=== PATIENT | female | born 1935 | race Caucasian/White ===

== ENCOUNTER 2019-08-27 13:23 | Outpatient (CLI) | payer MEDICARE, MEDICAID, SELFPAY ==
--- NOTE | 2019-08-27 13:32 | MM_ITS ---
WS: [id number] DIAGNOSTIC BILATERAL DIGITAL MAMMOGRAM WITH CAD HISTORY: HX OF BREAST CA COMPARISON: 08/24/2018, 08/23/2017 and 02/22/2017 TECHNIQUE: Bilateral craniocaudad, mediolateral oblique, and mediolateral views are submitted. Comput er aided detection utilized. Breast composition: The breasts are heterogeneously dense, which may obscure small masses. Volume los s and postsurgical changes with scarring in the LEFT breast. Nipple retraction is similar to prior st udies. Dense calcifications in the RIGHT breast. No new mass or suspicious calcifications. MM/[place] [id number] IMPRESSION: BI-RADS: 2-Benign FOLLOW UP: 1 Year Follow-up
--- NOTE | 2019-08-31 06:39 | ONC FU_ITS ---
Dr. Asif Patient Follow-Up Note Patient: Miriam Krishnan Unit #: [id number]: 1935 Dicatated By: Sarath Asif M.D.Date of Visit:Aug 27, 2019 Onc Med Follow-up/Prog Note Chief Complaint: Breast cancer. History of Present Illness: This is an 83 year-old woman with invasive lobular carcinoma of the left breast, stage IIA (T2, N0, M0), ER/TX positive and HER-2/yasir negative. She had been followed for some architectural distortion in the superior left breast which was thought to most likely be benign. However, a six-month follow-up ultrasound the left breast in October 2015 showed a hypoechoic focus in the 9:00 position of the left breast and a similar focus in the 10:00 position which were felt to be more suspicious, and biopsy was recommended. She then underwent ultrasound-guided needle biopsy on 11/28/2015. Pathology showed dense fibrous parenchyma with scattered foci of LCIS admixed with small foci of invasive lobular carcinoma. The best prognosis profile showed the tumor to be ER positive at 94% and TX positive at 9%. The Ki-67 was intermediate at 15%. It was negative for overexpression of HER-2/yasir, 2+ by IHC with amplification ratio by FISH of 1.2 with 1.9 HER-2 copies per cell. On 12/11/2015 she underwent left breast lumpectomy. Pathology showed a tumor comprised of both lobular carcinoma in situ and invasive lobular carcinoma. The invasive component measured 2.4 cm in greatest dimension. There was invasive carcinoma noted extending to the anterior, inferior, and medial margins. On 01/01/2016 she underwent reexcision lumpectomy with sentinel left axillary lymph node biopsy. There was no residual tumor identified in the reexcision specimen. There was no involvement noted in 3 axillary sentinel lymph nodes. I had seen her initially on 01/23/2016. In reviewing her medications, it was noted that she had been taking raloxifene. It took her some time to remember why, but eventually she did recall having participated in the STAR trial. To my recollection this was a comparison of raloxifene and tamoxifen for breast cancer prevention. When the study concluded, she learned that she had been on the tamoxifen arm, but she then developed some symptoms when she stopped taking it, and at that point Dr. Naidu had put her on raloxifene. I did have her stop taking it. She had further evaluation with Oncotype DX. It showed a recurrence of 20 corresponding to a 13% risk of distant recurrence at 10 years with hormonal therapy alone. She declined chemotherapy. She was given radiation to the left breast, which she completed on 04/05/2016 to a total dose of 6,000 cGy. Adjuvant hormonal therapy with anastrozole 1 mg daily began in May 2016. Her baseline bone density on 05/24/2016 was normal. Her other medical illnesses include hypertension, degenerative arthritis, glaucoma, and macular degeneration. She had smoked in the past, but only for about 5 years. She quit at age 35. INTERIM HISTORY: During her subsequent follow-up she had tolerated the anastrozole without significant adverse effects. Her repeat DEXA scan on 05/25/2018 showed normal bone mineralization with T score 2.4 in the lumbar spine, -0.2 in the left femoral neck, and -0.2 in the right femoral neck. She is seen for a scheduled visit. She has been feeling good generally. Her main complaint is that her teeth have been breaking off, and she is wondering if the medication may be contributing to that. She has good energy. She says she keeps busy. Her ECOG score is 0. Her appetite is good. She has no fever, night sweats, or hot flashes. She has had some hayfever symptoms with associated cough. She has no shortness of breath or chest pain. She has no GI/ complaints other than she has occasional episodes in which she her bowels move where she voids without being aware of it. She has arthritis in her right knee, which has gotten a little worse. She has no other joint or bone pain. She does not complain of headache. She occasionally takes meclizine for dizziness. She has some numbness in her left foot. She has no other focal neurologic symptoms. Medications: Alphagan P 1 drop(s) Solution Ophthalmic b.i.d., Anastrozole 1 (1 mg) Tablet Oral daily, Fluorouracil 1 (5 %) Cream Topical b.i.d., FLUoxetine HCl 1 Capsule (of 10 mg) Oral daily, Latanoprost 1 drop(s) Solution Ophthalmic daily, Lisinopril-Hydrochlorothiazide 1.5 Tablet (of 20-12.5 mg) Oral daily, Meloxicam 1 Tablet (of 15 mg) Oral daily, Metoprolol Succinate ER 1 Tablet (of 200 mg) Tablet SR 24 HR Oral daily, Potassium Chloride Leisa ER 2 Tablet (of 20 meq) Tablet, controlled release Oral daily, PreserVision AREDS 2 1 Capsule Oral daily, PROzac 1 Tablet (of 20 mg) Capsule Oral daily Allergies: No Known Allergies. Review of Systems: Constitutional - Her energy level is good and she has resumed normal activity at home. Her appetite is good and weight is stable. No fever, chills, hot flashes, or night sweats. ECOG score is 0, ENMT - No sinus congestion/drainage but she reports currently having hay fever. No mouth sores. No sore throat or difficulty swallowing, Hematologic/Lymphatic - She bruises easily, Respiratory - No shortness of breath. She has a slight nonproductive cough. No pleuritic pain or hemoptysis, Cardiovascular - No angina pain. No palpitations, Gastrointestinal - No nausea or vomiting. No heartburn or acid reflux. No diarrhea or constipation, but she has had occasional episodes of bowel incontinence. No blood in the stool or black stools, Genitourinary (F) - No dysuria or hematuria. No urinary frequency. She has occasional bladder iincontinence, Musculoskeletal - She has worsening arthritis pain in her right knee, Integumentary - No skin complications, Neurologic - No headache. She occasionally takes meclizine for dizziness. No numbness/paresthesias or other focal neurologic symptoms, Psychiatric - No anxiety or depression. No insomnia. Vital Signs: Performed on Aug 27, 2019 14:24 Height - 65.00 in Weight - 159.4 lbs (HIGH) BSA - 1.80 sq.m BMI - 26.53 Temperature - 98.3 F (LOW) Pulse - 63 /min Respiration - 20 /min BP - 174/85 mm(hg) (HIGH) O2 Sat - 94 % (LOW) Pain - 0 Physical Examination: Constitutional - She looks good generally, Eyes - Sclerae nonicteric. Conjunctivae clear, ENMT - No lesions noted in the oral cavity, Hematologic/Lymphatic - No cervical or clavicular adenopathy, Respiratory - Lungs are clear with good air movement bilaterally, Cardiovascular - Heart rhythm is regular. There is a I/ systolic murmur. There is no gallop or rub noted, Breasts - The right breast shows no mass. There is unchanged surgical defect in upper medial left breast, and there is associated induration and telangiectasia. There is no mass palpable and there is no axillary adenopathy, Abdomen - Soft. Liver and spleen are not enlarged. There is no abdominal mass or ascites noted and there is no inguinal adenopathy, Extremities - No edema. Dorsalis pedis pulses are palpable bilaterally, Neurologic - No focal neurologic deficits noted. Impression: 1. Patient with invasive lobular carcinoma of the left breast, stage IIA (T2, N0, M0), ER/TX positive and HER-2/yasir negative. There was also a component of lobular carcinoma in situ. Her treatment included lumpectomy followed by reexcision lumpectomy and sentinel left axillary lymph node biopsy on 01/01/2016. Her Oncotype DX showed a recurrence score of 20 corresponding to a 13% risk of distant recurrence at 10 years with adjuvant hormonal therapy. She declined chemotherapy. 2. She was given radiation to the left breast, completed on 04/05/2016 to a total dose of 6000 cGy. 3. Adjuvant hormonal therapy with anastrozole 1 mg daily began in May 2016. Her baseline bone density was normal. Her other medical illnesses include: 4. Hypertension. 5. Degenerative arthritis. During followup she has tolerated the anastrozole with no adverse effects. She does complain that her teeth have been breaking off, but I doubt that would be related, particularly in the setting of a normal bone density study. Overall, she continues to do well clinically with no evidence of recurrence of the breast cancer. Plan: She will continue adjuvant hormonal therapy with anastrozole 1 mg daily, but I will look into the issue of the teeth breaking off. I will see her again in 6 months. Signed By: Sarath Asif M.D. <<Signature on File>>
== END 2019-08-27 13:24 | disposition home or self-care (01) ==
LOC: ONCMED 13:28
PROVIDERS: Family Provider Family Medicine; PCP Family Medicine; Visit Provider Internal Medicine Medical Oncology
DX: Z85.3 Personal history of malignant neoplasm of breast (principal); I10 Essential (primary) hypertension; M19.90 Unspecified osteoarthritis, unspecified site; H40.9 Unspecified glaucoma; H35.30 Unspecified macular degeneration; Z78.0 Asymptomatic menopausal state; Z17.0 Estrogen receptor positive status [ER+]; Z79.811 Long term (current) use of aromatase inhibitors; Z87.891 Personal history of nicotine dependence; Z92.3 Personal history of irradiation
CPT/HCPCS: 77066; 99214

== ENCOUNTER → 2019-12-13 09:58 | Outpatient (BNVA) | payer MEDICARE, MEDICAID, SELFPAY | PROVIDERS: Family Provider Family Medicine; PCP Family Medicine; Referring Provider Family Medicine; Visit Provider Orthopaedic Surgery | DX: M25.561 Pain in right knee (principal); M25.461 Effusion, right knee | CPT/HCPCS: 73560; 73565 ==

== ENCOUNTER 2020-01-04 10:15 | Outpatient (CLI) | payer MEDICARE, MEDICAID, SELFPAY ==
--- NOTE | 2020-01-04 10:25 | PC.NURSE ---
Patient identity verified to include first and last name and date of . PPE to include face shield, N95, gown and gloves. Specimen collected, labeled and signed into lab at this time. Paitnet tolerated well.
[2020-01-05 18:40] LABS: Coronavirus Lab Test PTC SEE REPORT
== END 2020-01-04 10:16 | disposition home or self-care (01) ==
PROVIDERS: PCP Family Medicine; Visit Provider Orthopaedic Surgery
DX: Z01.812 Encounter for preprocedural laboratory examination (principal)
CPT/HCPCS: 87635

== ENCOUNTER 2020-01-07 09:16 | Observation (INO) | payer MEDICARE, MEDICAID, SELFPAY ==
[2019-12-27 08:37] VITALS: BMI 26.1
--- NOTE | 2019-12-27 08:44 | ECG_ITS ---
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 Measurements Intervals [place] Rate: 60 P: 74 VT: 185 QRS: 48 QRSD: 147 T: 72 QT: 443 QTc: 444 Interpretive Statements SINUS RHYTHM LEFT BUNDLE BRANCH BLOCK [120+ ms QRS DURATION, 80+ ms Q/S IN V1/V2, 85+ ms R IN I/aVL/V5/V6] Compared to ECG 01/06/2017 12:00:27 No significant changes Electronically Signed On 12-27-2019 17:18:57 CDT by Clair Palomares M.D. [id number]
--- NOTE | 2019-12-27 09:03 | ANES.PREANE2 ---
Pre-Anesthetic Assessment Pre-Anesthetic Assessment: Height/Weight: Height 1.65 m Weight 71.214 kg Preop Diagnosis: Osteoarthritis right knee Proposed Procedure: Operation Date: 01/07/20 07:00 Proposed Procedures p Total Knee Arthroplasty 14587 M17.11(Right) - Jose Elias Mcnamara MD Social: Social History: No alcohol and No tobacco Exam: Pre-Anes Outpt Exam: alert, oriented x 3, clear to auscultation bilaterally and regular rate & rhythm Airway: Submandibular: WNL Cervical ROM: WNL MP: 2 Dentition: Other (teeth ok) History/ROS: No significant history except as noted Pulmonary: Pulmonary: None reported CV/HEM: CV/HEM: HTN : : None reported Hepatic: Hepatic: None reported GI: GI: None reported Metabolic: Metabolic: None reported Musc/skel: Musc/skel: OA/DJD Comments: alexis Neuropsych: Neuropsych: None reported Anesthetic Plan: ASA status: 2 Anesthesia: Anesthesia Evaluation, Eval. for regional block, General and Regional (specify below) (Right Adductor canal) Risk of > 500 ml blood loss (7ml/kg in children): Yes, adequate IV access and fluids planned PFSH Anesthesia PFSH: Medical History GERD (gastroesophageal reflux disease) History of breast cancer Hypertension Macular degeneration Surgical History (Updated 12/27/19 @ 09:04 by Woody Morales MD) History of bladder repair surgery History of cholecystectomy Social History Smoking and tobacco status: never smoked Alcohol intake: never Female Reproductive History: Date of last menstrual period: 06/20/74 Data Anesthesia Cardiac Studies: No Data to Display
[2019-12-27 09:15] LABS: Alanine Aminotransferase 7 U/L (0-33); Albumin Level 4.2 g/dL (3.5-5.2); Alkaline Phosphatase 82 IU/L (35-105); Aspartate Amino Transferase 18 U/L (0-32); Blood Urea Nitrogen 14 mg/dL (8-23); Calcium 9.7 mg/dL (8.5-10.5); Carbon Dioxide 30 mmol/L (22-29); Chloride 103 mmol/L (98-107); Globulin 2.5 g/dL (1.3-4.6); Glucose 177 mg/dL (65-115); Osmolality Calculated 293 mOsm/kg (285-295); Sodium 141 mmol/L (136-145); Total Bilirubin 0.6 mg/dL (0.15-1.2); Total Protein 6.7 g/dL (6.6-8.7)
--- NOTE | 2019-12-27 09:24 | XRR_ITS ---
PROCEDURE INFORMATION: Exam: XR Chest, 2 Views Exam date and time: 12/27/2019 9:37 AM Age: 84 years old Clinical indication: Pre-operative exam; Cardiovascular screening and respiratory screening exam; Prior surgery; Surgery type: Lt breast cancer; Additional info: Pre-op for knee SX TECHNIQUE: Imaging protocol: XR of the chest Views: 2 views. COMPARISON: CR Chest 1 [place] [id number] 01/06/2017 12:15 PM FINDINGS: Lungs: Unremarkable. No consolidation. Pleural space: Unremarkable. No pleural effusion. No pneumothorax. Heart/Mediastinum: Unremarkable. No cardiomegaly. Bones/joints: Unremarkable. XR/XR chest 2V* [id number] IMPRESSION: No acute findings.
[2019-12-27 10:26] LABS: Bilirubin Urine Neg (NEGATIVE); Blood Urine Neg (Negative); Glucose Urine UA Norm (Normal); Ketones Urine Negative (Negative); Leukocyte Esterase Urine Negative (Negative); Nitrate Urine Negative (Negative); Protein Urine Neg (Negative); Urine Appearance Clear (CLEAR); Urine Color Straw (Yellow); Urobilinogen Urine Norm (Negative)
[2019-12-27 10:30] LABS: Add Urine Culture? No; Bacteria Urine TRACE; Mucus Urine 1+; Squamous Epithelial Cell Urine 0-4 (0-5)
[2020-01-07] VITALS (20 sets, daily range): BP systolic 102–194; BP diastolic 60–99; PULSE 63–88; RESP 14–20; TEMP 36.6–36.9; O2SAT 87–100
[2020-01-07] MEDS: sodium chloride 0.9% 1,000 ML 30 ML IV (06:15)
[2020-01-07] MEDS: midazolam 1 mg/mL INJ 5 ML 5 MG IVP (06:18)
--- NOTE | 2020-01-07 06:57 | W.PM.OPSUD ---
Surgery/Procedure H&P Update DATE OF PROCEDURE: January 07, 2020 DATE H&P PERFORMED: 12/13/19 PREOP DIAGNOSIS: Osteoarthritis right knee PLANNED PROCEDURE: Operation Date: 01/07/20 07:00 Proposed Procedures p Total Knee Arthroplasty 33456 M17.11(Right) - Jose Elias Mcnamara MD
--- NOTE | 2020-01-07 07:39 | P.ANESUD_ITS ---
Pre-Anesthetic Update Pre-Anesthetic Assessment: Date of Surgery/Procedure: 01/07/20 Preop Gertrude gnosis: Osteoarthritis right knee Proposed Procedure: Operation Date: 01/07/20 07:00 Proposed Procedures p Total Knee Arthroplasty 59923 M17.11(Right) - Jose Elias Mcnamara MD Any changes to Pre-Anesthetic Assessment?: No Last Intake: Intake Last Liquid Date 01/06/20 Last Liquid Time 18:00 Last Solid Date 01/06/20 Last Solid Time 18:00 Vitals: Temperature 98.2 F 01/07/20 05:47 Temperature Source Temporal Artery S can 01/07/20 05:47 Pulse Rate 65 01/07/20 05:47 Pulse Rhythm 01/07/20 05:47 Respiratory Rate 20 H 01/07/20 05:47 Blood Pressure 194/99 01/07/20 05:47 Blood Pressure Angela n 130 01/07/20 05:47 Pulse Oximetry 97 01/07/20 05:47 Oxygen Delivery Me thod 01/07/20 05:47 Exam: Pre-Anes Outpt Exam: alert, oriented x 3, clear to auscultation bilaterally and regular rate & rhythm Cardiac Studies: No Data to Display
--- NOTE | 2020-01-07 07:39 | ANES.PROC ---
Anesthesia Procedures Procedure/Date: 01/07/20 Nerve Block ^: Nerve Block 1: Main Anesthesia: general anesthesia Time Out Performed: Yes Consent: requested by attending/covering physician, from patient, risks and benefits reviewed and patient agrees to proceed Nerve block location: adductor canal (R) Anesthesia monitors applied: pulse oximetry and oxygen Nerve block position: supine Anesthetic Used: ropivicaine 0.5% and with decadron (4 mg) Amount of anesthesia used (mL): 30 Ultrasound used to: recognize landmarks Nerve Stimulator Used?: No Interscalene/Femoral BLK: 4 stimuplex 21 g needle used for position and inplane approach, visualize local anesthetic spread and no vascular puncture identified Injection: neg aspiration of heme Patient Tolerated Procedure: well Complications: none
[2020-01-07] MEDS: tranexamic acid 1,000 mg/10mL SDV 1000 MG IRRIGATION (07:46)
[2020-01-07] MEDS: EPINEPHrine 1 mg/mL INJ XX (07:47)
[2020-01-07] MEDS: ketorolac 30 mg/mL INJ XX (07:48)
--- NOTE | 2020-01-07 09:06 | PM.OP ---
Operative Report Date of procedure: January 07, 2020 Pre-op Diagnosis: Osteoarthritis right knee Post-op diagnosis: same Procedure Done: Right total knee arthroplasty Implants: [place] total knee arthroplasty components were used includin) Size 3 posterior stabilized triathalon cruciate substituting femoral component 2) Size 3 universal tibial component 3) 29 mm /9 mm thickness cemented asymetric patella 4) Size 3/9 mm thickness cruciate substituting tibial bearing insert Pathology: none sent Surgeon: Jose Elias Mcnamara Anesthesia: General and Nerve Block (Adductor canal block) Estimated blood loss (mL): 200 Complications: None Findings: Patient eburnation and narrowing the lateral femoral condyle and lateral tibial plateau Condition: stable Disposition: PACU Procedure: The patient was taken to the operating room. Patient was given 1 g of tranexamic acid . The above anesthesia provided by the anesthesia service. A timeout was performed. The patient was prepped and draped in the usual fashion with the lower extremity exposed. A anterior incision was made, midline, from a point proximal to the patella to the distal tibial tubercle. Dissection was accomplished through the subcutaneous fat to the extensor mechanism. The knee was entered through a medial parapatellar approach. The patella could be displaced laterally and the knee flexed. The patellar fat pad was resected to provide better visibility. Retractors were placed medially and laterally adjacent to the tibial plateau. The femoral canal was drilled in line with the longitudinal axis of the femur. Intramedullary femoral guide for used to make a distal femoral cut in 5 degrees of valgus, resecting 8 mm from the more prominent condyle. Next the extra medullary tibial guide was placed in alignment with the longitudinal axis of the tibia. The cutting guides were set to remove just over 9 mm from the high tibial plateau. The proximal tibia was then cut. The femoral measuring guide was then placed over the distal femur. Rotation was verified checking the relationship of the guide to the condyle and the trochlear groove. The femur was measured and cut for the desired femoral component. The desired tibial baseplate was then chosen. A trial reduction with the femur tibial baseplate and polyethylene was done, assuring that the knee was stable throughout full motion. With bony resection ligamentous balance was restored to the knee the tibia was prepared for the tibial baseplate. Patellar thickness was then measured. The patella was cut removing articular cartilage and prepared for appropriate size patellar button. All surfaces were cleaned with pulsatile lavage. The femur tibia and patella were then cemented into place. The posterior capsule and collateral ligaments were then injected with a solution of 100 mL of 0.2% ropivacaine, 1 mL of a 1:1000 epinephrine solution, and 30 mg of Toradol. Final polyethylene component was then snapped into place into the tibia. 2 grams of tranexamic acid were applied to the wound. The tourniquet was deflated. The tranxanemic acid was left contact with the knee for 5 minutes before the knee was irrigated with saline. The extensor retinaculum was closed with 1 Ethibond. The subcutaneous tissues were closed with 2-0 Vicryl and the skin was closed with skin chris. A compressive dressing was applied. The patient was taken to recovery room in stable condition.
--- NOTE | 2020-01-07 09:19 | XR_ITS ---
WS: [id number] RIGHT KNEE 2 VIEWS AP and cross table lateral imaging is submitted. HISTORY: Right total knee arthroplasty. COMPARISON: None available. Total knee replacement prosthetic devices are in good position and alignment. Normal position of the patella. Posterior patella resurfacing changes. Numerous postsurgical sutures are noted over the ant erior knee and there are normal postoperative changes in the soft tissues consistent with air, blood and edema. No complications are evident. XR/XR knee RT 1-2V [id number] IMPRESSION: Satisfactory appearance of the recent RIGHT knee arthroplasty.
--- NOTE | 2020-01-07 09:24 | SUR.PHASEI ---
pt awake alert on3lnc now, pt confused and easily reoriented, vss, rt knee dressing d/i first ice to knee distal pulse marked strong and regular, bilat foot pumps on mayo to dd clear urine noted in tubing. stat loct to lt thigh.
--- NOTE | 2020-01-07 10:03 | SUR.PHASEI ---
0945 PT AWAKE ALERT TO PERSON AND PLACE BUT THINKS IT IS 2013 AND OPAL IS PRESIDENT, PT PLEASANT AND EASILY REDIRECTED AND REORIENTED, TALKATIVE WITH STAFF LIBRA PARADA DRESSING D/I, BP 164/84, HR 67, RESP 16 ON 3LNC SATS 95%
[2020-01-07] MEDS: CELEcoxib 200 mg Capsule PO ×2 (10:51→22:03)
[2020-01-07] MEDS: HYDROcodone-acetaminophen 5-325 mg Tablet 1 TAB PO (10:51)
[2020-01-07] MEDS: lactated ringers 1,000 ML 75 ML IV ×2 (10:52→20:13)
[2020-01-07] MEDS: chlorhexidine gluconate 0.12% Btl 473 mL 30 ML MUCOUS MEM ×3 (13:20→20:20)
[2020-01-07] MEDS: morphine 4 mg/mL SDV 1 mL 2 MG IVP (13:29)
[2020-01-07] MEDS: meclizine 25 mg tablet PO (17:22)
[2020-01-07] MEDS: sennosides-docusate Tablet 2 TAB PO (17:22)
[2020-01-07] MEDS: mupirocin oint 22 gm 1 APPLIC TOPICAL (17:23)
--- NOTE | 2020-01-07 23:49 | PC.NURSE ---
This nurse assuming care for patient. Patient denies any pain in extremity. Neurovascular assessment WNL. Surgical dressing CDI. Patient does not have any requests at this time. Nurse to continue to monitor.
[2020-01-08 04:00] VITALS: BP 120/68; PULSE 70; RESP 16; TEMP 36.7; O2SAT 97
--- NOTE | 2020-01-08 04:45 | PC.NURSE ---
Mabry catheter removed at 0430. 10 ml of water removed from balloon. Patient tolerated well.
[2020-01-08 05:34] LABS: Hemoglobin 9.6 g/dL (11.5-15.3)
[2020-01-08] MEDS: HYDROcodone-acetaminophen 5-325 mg Tablet 1 TAB PO (06:14)
--- NOTE | 2020-01-08 06:32 | PC.NURSE ---
Shift Summary No events overnight. Mabry discontinued at 0430, patient tolerated well. Patient up to chair at this time. Oral care performed by self. Pain managed with oral pain meds. Ice changed at routine intervals. Neurovascular assessment WNL. Patient does not have any complaints at this time. Nurse to continue to monitor.
[2020-01-08 07:35] VITALS: BP 146/70; PULSE 60; RESP 16; TEMP 36.9; O2SAT 93
[2020-01-08] MEDS: metoprolol succinate ER (24 HR) 100 mg Tablet 200 MG PO (08:32)
[2020-01-08] MEDS: anastrozole 1 mg Tablet PO (08:32)
[2020-01-08] MEDS: potassium chloride ER 10 mEq Tablet 20 MEQ PO (08:32)
[2020-01-08] MEDS: aspirin 325 mg EC Tablet PO (08:32)
[2020-01-08] MEDS: fluoxetine 10 mg Capsule PO (08:32)
[2020-01-08] MEDS: lisinopril 20 mg Tablet PO (08:32)
[2020-01-08] MEDS: sennosides-docusate Tablet 2 TAB PO (08:32)
[2020-01-08] MEDS: hydroCHLOROthiazide 25 mg Tablet 12.5 MG PO (08:32)
[2020-01-08] MEDS: chlorhexidine gluconate 0.12% Btl 473 mL 30 ML MUCOUS MEM ×2 (08:35→14:00)
[2020-01-08] MEDS: latanoprost 0.005% Op Soln 2.5 mL Btl 1 DROP EYE-BOTH (08:36)
[2020-01-08] MEDS: mupirocin oint 22 gm 1 APPLIC TOPICAL (08:37)
[2020-01-08] MEDS: meclizine 25 mg tablet PO (08:39)
[2020-01-08 09:23] VITALS: BP 146/70; PULSE 60; RESP 16; TEMP 36.9; O2SAT 93
[2020-01-08] MEDS: CELEcoxib 200 mg Capsule PO (09:49)
--- NOTE | 2020-01-08 10:47 | ANE.PACU2 ---
Inpatient post-anesthesia follow up: Airway intact: Yes Vital signs: Temperature 98.5 F Pulse Rate 60 Respiratory Rate 16 Blood Pressure 146/70 Pulse Oximetry 93 Oxygen Delivery Me thod Room Air Oxygen Flow Rate 2 Fraction of Inspir ed Oxygen Hydration adequate: Yes Nausea and vomiting: Yes Pain level: 3 Mental status: Baseline Additional Comments: having some hoarseness, but has improved yesterday
--- NOTE | 2020-01-08 10:59 | PC.CHAP ---
Pastoral Care Encounter/Spiritual Assessment Type of Contact [] Declined territory service representative visit [] Patient/Family/Request visit [] Outpatient visit [] Follow-up visit [] Physician referral [] Code/Alert [x] Routine visit [] Staff referral [] Actively dying [] Patient sleeping [] Family support [] [] Out of room [] Palliative care [] [x] Receiving care in room [] Pre-surgical visit [] Trauma [] Long length of stay [] ICU visit [] Other: Relational/Emotional Strength [x] Patient feels connected with others/family/visitors/staff [] Distress [] Loneliness/isolation [] Abandonment Spirituality of Patient [x] Person of Ania [] Attends Taoist of their Ania [x] Believes in Prayer [] Reads Bible or Adventist materials [] There are Spiritual issues to be addressed Legal Billing Specialist Interventions [x] Prayer [x] Active listening [x] Non-anxious presence [x] Spiritual/emotional support [] Crisis/trauma care [x] Spiritual counseling [] Bereavement support [] Provided bereavement packet [] Provided Bible/devotional materials [] Provided toy/stuffed animal, coloring book to patient or family member [] Provided Communion [] Anointing/[place] [] Salvation [x] Completed spiritual assessment [] Other: Impact on Illness or Injury [] Angry [] Fearful [] Anxious [] Often cries [] Exhaustion [] Unable to work [] Unable to attend jewish [] Unable to walk/stand [] Unable to read [] Unable to drive [] Unable to eat/drink [] Unable to sleep [] Unable to be with family [] Patient intubated [] Other: Summary a knee replacement, feels good able to communicate knows what is needed for recovery and thorpy Time spent with patient 10 mins
[2020-01-08 11:21] VITALS: BP 138/68; PULSE 66; RESP 24; TEMP 36.8; O2SAT 96
--- NOTE | 2020-01-08 13:02 | P.DS_ITS ---
Discharge Providers Date of Admission: 01/07/20 09:16 Date of Discharge: January 08, 2020 Attending Provider at Admission: Jose Elias Mcnamara MD Attending Provider at Discharge: Jose Elias Mcnamara MD Primary Care Provider: Eric Blanchard MD Diagnoses at Discharge Discharge Diagnosis (1) Status post right knee replacement: Status: Acute (2) Osteoarthritis of right knee: Status: Acute Reason for Visit Reason for Visit: Primary osteoarthritis of right knee Hospital Course Hospital Course: Patient was admitted on 01/07/2020 for elective right total knee arthroplasty. She tolerated the procedure well. She remained hemodynamically stable with postoperative hemoglobin 9.0 on the first postoperative day. She made excellent progress with therapy. She is managed with aspirin and foot pumps for DVT prophylaxis. At the time of dictation we are waiting for her to pass urine before discharge Physical Exam Narrative: EXAM NARRATIVE: Patient's right knee incision was clean and free of drainage. She had excellent quadriceps control and can perform a straight leg raise. Her calf was soft. She had no distal right neurovascular deficit Urinary Catheter Management^: F: Cath Placed During This Visit: yes Urinary Catheter Date of Insertion: 01/07/20 Urinary Catheter Time of Insertion: 07:15 Discharge Data Data Completed and Pending: Completed Studies During Hospitalization Category Date Time Status XR chest 2V* 7104 6 Routine Exams 12/27/19 09:24 Completed XR knee RT 1-2V 7 3560 Routine Exams 01/07/20 09:19 Completed Labs from last 24 hours 01/08/20 04:20 Hgb 9.6 L Vitals: Last Vital Signs Temp 98.2 F 01/08/20 11:21 Pulse 66 01/08/20 11:21 Resp 24 H 01/08/20 11:21 BP 138/68 01/08/20 11:21 Pulse Ox 96 01/08/20 11:21 Discharge Plan Discharge Patient Disposition: Home, Self-Care Condition: Stable Prescriptions: New hydrocodone-acetaminophen 5-325 mg Tablet 1 tab PO Q4H PRN (Reason: Moderate Pain) Qty: 30 RF: 0 aspirin 325 mg Tablet,Delayed Release (Dr/Ec) 325 mg PO DAILY Qty: 30 RF: 0 celecoxib 200 mg Capsule 200 mg PO Q12H Qty: 3 RF: 0 Continued fluoxetine [Prozac] 10 mg capsule 10 mg PO DAILY RF: 0 meclizine 25 mg tablet 25 mg PO BID RF: 0 metoprolol succinate [Toprol XL] 200 mg tablet extended release 24 hr 200 mg PO DAILY RF: 0 latanoprost [Xalatan] 0.005 % drops 1 drop ophthalmic (eye) DAILY RF: 0 potassium chloride 20 mEq tablet extended release 20 meq PO DAILY RF: 0 lisinopril-hydrochlorothiazide 20-12.5 mg tablet 1 tab PO DAILY RF: 0 mupirocin 2 % ointment 1 applic TOPICAL BID Qty: 22 RF: 0 anastrozole 1 mg tablet 1 mg PO DAILY RF: 0 Alphagan P 0.1 % drops 1 drp ophthalmic (eye) DAILY RF: 0 Discharge Orders: Discharge Order (Routine); Ordered 01/08/20 Ordered By: Jose Elias Mcnamara Other Ambulatory Orders: DME: Walker (Order) Location: None Selected Ordered By: Jose Elias Mcnamara Referrals: [facility] ([facility]) [Outside] Jose Elias Mcnamara MD [Physician] - 01/21/20 1:15 pm Discharge Diet: Advance as tolerated Discharge Activity: Limit activity as instructed Patient Instructions: Total Knee Replacement (DC) Activity Restrictions/Additional Instructions: May shower once incisions completely free of drainage. Replaced dressings as needed for drainage.. Take Celebrex twice a day for the next 15 days, discontinue other anti- inflammatories Take oxycodone for breakthrough pain. Exercises per physical therapy. Ice and elevate knees as needed for pain and swelling.. Discharge Attestations Time Spent in Discharge Care*: other Quality Metrics Clinical Quality Measures During this hospital stay, did patient experience: None Coding Level of Care Code Acute Student Life Dean for Kurtis Arambula Diagnoses Status post right knee replacement Z96.651 Osteoarthritis of right knee M17.11
[2020-01-08 13:09] VITALS: BP 138/68; PULSE 66; RESP 24; TEMP 36.8; O2SAT 96
--- NOTE | 2020-01-08 13:26 | PC.NURSE ---
mayo discontinued this am, pt not able to void. bladder scan showed 397mL, verbal order obtained from Dr. Mcnamara to straight cath pt once. 200mL urine returned from straight cath. sterile technique used, pt tolerated well.
[2020-01-08 15:40] VITALS: BP 132/76; PULSE 74; RESP 20; TEMP 36.7; O2SAT 95
== END 2020-01-08 16:20 | disposition home or self-care (01) ==
LOC: MEDSURG 09:27
PROVIDERS: Anesthesiology; Admitting Provider Orthopaedic Surgery; PCP Family Medicine; Visit Provider Orthopaedic Surgery
PROC: (CPT 27447; principal; 2020-01-07 07:00)
DX: M17.11 Unilateral primary osteoarthritis, right knee (principal); I10 Essential (primary) hypertension; M19.90 Unspecified osteoarthritis, unspecified site; Z85.3 Personal history of malignant neoplasm of breast; Z79.82 Long term (current) use of aspirin
CPT/HCPCS: 27447; 12345; 36415; 51702; 71046; 73560; 80053; 81001; 85018; 93005; 96361; 96374; 96375; 97110; 97116; 97161; 97165; 97530; C1776; G0378; J0171; J0690; J1100; J1580; J1885; J2250; J2270; J2405; J2704; J2710; J2795; J3010; J3490; J7030; J8597; J8999

== ENCOUNTER 2020-01-30 06:00 | Outpatient (RCR) | payer MEDICARE, MEDICAID, SELFPAY | END 2020-02-18 23:59 | disposition home or self-care (01) | LOC: SPT 06:00 | PROVIDERS: PCP Family Medicine; Referring Provider Orthopaedic Surgery; Visit Provider Orthopaedic Surgery | DX: Z96.651 Presence of right artificial knee joint (principal) | CPT/HCPCS: 97110; 97161; 97530 ==

== ENCOUNTER 2020-02-19 06:00 | Outpatient (RCR) | payer MEDICARE, MEDICAID, SELFPAY | END 2020-03-19 23:59 | disposition home or self-care (01) | LOC: SPT 06:00 | PROVIDERS: PCP Family Medicine; Referring Provider Orthopaedic Surgery; Visit Provider Orthopaedic Surgery | DX: Z47.1 Aftercare following joint replacement surgery (principal); Z96.651 Presence of right artificial knee joint | CPT/HCPCS: 73560; 73565; 97110; 97530 ==

== ENCOUNTER 2020-02-27 12:47 | Outpatient (CLI) | payer MEDICARE, MEDICAID, SELFPAY ==
--- NOTE | 2020-03-02 08:59 | ONC FU_ITS ---
Dr. Asif Patient Follow-Up Note Patient: Miriam Krishnan Unit #: [id number]: 1935 Dicatated By: Sarath Asif M.D.Date of Visit:Feb 27, 2020 Onc Med Follow-up/Prog Note Chief Complaint: Breast cancer. History of Present Illness: This is an 84 year-old woman with invasive lobular carcinoma of the left breast, stage IIA (T2, N0, M0), ER/MA positive and HER-2/yasir negative. She had been followed for some architectural distortion in the superior left breast which was thought to most likely be benign. However, a six-month follow-up ultrasound the left breast in October 2015 showed a hypoechoic focus in the 9:00 position of the left breast and a similar focus in the 10:00 position which were felt to be more suspicious, and biopsy was recommended. She then underwent ultrasound-guided needle biopsy on 11/28/2015. Pathology showed dense fibrous parenchyma with scattered foci of LCIS admixed with small foci of invasive lobular carcinoma. The best prognosis profile showed the tumor to be ER positive at 94% and MA positive at 9%. The Ki-67 was intermediate at 15%. It was negative for overexpression of HER-2/yasir, 2+ by IHC with amplification ratio by FISH of 1.2 with 1.9 HER-2 copies per cell. On 12/11/2015 she underwent left breast lumpectomy. Pathology showed a tumor comprised of both lobular carcinoma in situ and invasive lobular carcinoma. The invasive component measured 2.4 cm in greatest dimension. There was invasive carcinoma noted extending to the anterior, inferior, and medial margins. On 01/01/2016 she underwent reexcision lumpectomy with sentinel left axillary lymph node biopsy. There was no residual tumor identified in the reexcision specimen. There was no involvement noted in 3 axillary sentinel lymph nodes. I had seen her initially on 01/23/2016. In reviewing her medications, it was noted that she had been taking raloxifene. It took her some time to remember why, but eventually she did recall having participated in the STAR trial. To my recollection this was a comparison of raloxifene and tamoxifen for breast cancer prevention. When the study concluded, she learned that she had been on the tamoxifen arm, but she then developed some symptoms when she stopped taking it, and at that point Dr. Naidu had put her on raloxifene. I did have her stop taking it. She had further evaluation with Oncotype DX. It showed a recurrence of 20 corresponding to a 13% risk of distant recurrence at 10 years with hormonal therapy alone. She declined chemotherapy. She was given radiation to the left breast, which she completed on 04/05/2016 to a total dose of 6,000 cGy. Adjuvant hormonal therapy with anastrozole 1 mg daily began in May 2016. Her baseline bone density on 05/24/2016 was normal. Her other medical illnesses include hypertension, degenerative arthritis, glaucoma, and macular degeneration. She had smoked in the past, but only for about 5 years. She quit at age 35. INTERIM HISTORY: During her subsequent follow-up she had tolerated the anastrozole without significant adverse effects. Her repeat DEXA scan on 05/25/2018 showed normal bone mineralization with T score 2.4 in the lumbar spine, -0.2 in the left femoral neck, and -0.2 in the right femoral neck. As of her follow-up visit in August 2019 she appeared stable clinically. She continued adjuvant hormonal therapy with anastrozole 1 mg daily. On 01/07/2020 she underwent right total knee arthroplasty for degenerative arthritis. She had no complications with the surgery. She is seen for a scheduled visit. She has been feeling good generally. She is still recovering from her knee surgery, but she continues to show improvement in her activity tolerance. ECOG score is 1. She has good appetite. She has no fever, night sweats, or hot flashes. She has no shortness of breath, cough, or chest pain. She has no GI or complaints. She has just occasional pain in her right knee. She has no other joint or bone pain. She has no focal neurologic symptoms. Medications: Alphagan P 1 drop(s) Solution Ophthalmic b.i.d., Anastrozole 1 (1 mg) Tablet Oral daily, Fluorouracil 1 (5 %) Cream Topical b.i.d., FLUoxetine HCl 1 Capsule (of 10 mg) Oral daily, Latanoprost 1 drop(s) Solution Ophthalmic daily, Lisinopril-Hydrochlorothiazide 1.5 Tablet (of 20-12.5 mg) Oral daily, Meclizine HCl 1 Tablet (of 25 mg) Oral daily, Meloxicam 1 Tablet (of 15 mg) Oral daily, Metoprolol Succinate ER 1 Tablet (of 200 mg) Tablet SR 24 HR Oral daily, Potassium Chloride Leisa ER 2 Tablet (of 20 meq) Tablet, controlled release Oral daily, PreserVision AREDS 2 1 Capsule Oral daily Allergies: No Known Allergies. Review of Systems: Constitutional - She recently underwent right total knee arthroplasty. She is doing welll. Her energy and activity level are improving. Her appetite is good and weight is stable. No fever, night sweats, or hot flashes. ECOG score is 1, ENMT - No sinus congestion/drainage. No mouth sores. No sore throat or difficulty swallowing, Hematologic/Lymphatic - She has bruising, Respiratory - No shortness of breath. No cough. No pleuritic pain or hemoptysis, Cardiovascular - No angina pain. No palpitations, Gastrointestinal - No nausea or vomiting. No heartburn or acid reflux. No diarrhea or constipation. No blood in the stool or black stools, Genitourinary (F) - No dysuria or hematuria. No urinary frequency. No urgency or incontinence, Musculoskeletal - She has occasional pain in her right knee, Integumentary - No skin complications, Neurologic - No headache. She has occasional dizziness. She takes meclizine as needed. No numbness or tingling. No other focal neurologic symptoms, Psychiatric - Her anxiety/depression is well managed with fluoxetine. No insomnia. Vital Signs: Performed on Feb 27, 2020 13:03 Height - 65.00 in Weight - 156.2 lbs (LOW) BSA - 1.78 sq.m BMI - 25.99 Temperature - 97.7 F (LOW) Pulse - 71 /min Respiration - 18 /min BP - 144/69 mm(hg) (HIGH) O2 Sat - 98 % Pain - 0 Physical Examination: Constitutional - She looks good generally, Eyes - Sclerae nonicteric. Conjunctivae clear, ENMT - No lesions noted in the oral cavity, Hematologic/Lymphatic - No cervical, clavicular, or axillary adenopathy, Respiratory - Lungs are clear with good air movement bilaterally, Cardiovascular - Heart rhythm is regular. There is a I/ systolic murmur. There is no gallop or rub noted, Abdomen - Soft. Liver and spleen are not enlarged. There is no abdominal mass or ascites noted and there is no inguinal adenopathy, Extremities - Slight edema, Neurologic - No focal neurologic deficits noted. Impression: 1. Patient with invasive lobular carcinoma of the left breast, stage IIA (T2, N0, M0), ER/MA positive and HER-2/yasir negative. There was also a component of lobular carcinoma in situ. Her treatment included lumpectomy followed by reexcision lumpectomy and sentinel left axillary lymph node biopsy on 01/01/2016. Her Oncotype DX showed a recurrence score of 20 corresponding to a 13% risk of distant recurrence at 10 years with adjuvant hormonal therapy. She declined chemotherapy. 2. She was given radiation to the left breast, completed on 04/05/2016 to a total dose of 6000 cGy. 3. Adjuvant hormonal therapy with anastrozole 1 mg daily began in May 2016. Her baseline bone density was normal. Her other medical illnesses include: 4. Hypertension. 5. Degenerative arthritis. During followup she has tolerated the anastrozole with no adverse effects. She had complained that her teeth were breaking off, but that appeared unlikely to be medication related, particularly in the setting of a normal bone density study. In December 2019 she underwent right total knee arthroplasty. She had no complications with the surgery. Overall, she continues to do well clinically. Thus far there has been no evidence of recurrence of the breast cancer. Plan: She continues adjuvant hormonal therapy with anastrozole 1 mg daily. I will see her again in 6 months. Signed By: Sarath Asif M.D. <<Signature on File>>
== END 2020-02-27 12:48 | disposition home or self-care (01) ==
LOC: ONCMED 12:50
PROVIDERS: PCP Family Medicine; Visit Provider Internal Medicine Medical Oncology
DX: C50.412 Malignant neoplasm of upper-outer quadrant of left female breast (principal); Z17.0 Estrogen receptor positive status [ER+]; I10 Essential (primary) hypertension; M19.90 Unspecified osteoarthritis, unspecified site; Z79.811 Long term (current) use of aromatase inhibitors; Z96.651 Presence of right artificial knee joint
CPT/HCPCS: 99214

== ENCOUNTER 2020-03-20 06:00 | Outpatient (RCR) | payer MEDICARE, MEDICAID, SELFPAY | END 2020-04-03 11:57 | disposition home or self-care (01) | LOC: SPT 06:00 | PROVIDERS: PCP Family Medicine; Referring Provider Orthopaedic Surgery; Visit Provider Orthopaedic Surgery | DX: Z47.1 Aftercare following joint replacement surgery (principal); Z96.651 Presence of right artificial knee joint | CPT/HCPCS: 97110 ==

== ENCOUNTER → 2020-07-09 14:00 | Outpatient (BNVA) | payer MEDICARE, MEDICAID, SELFPAY | PROVIDERS: PCP Family Medicine; Visit Provider Orthopaedic Surgery | DX: Z96.651 Presence of right artificial knee joint (principal) | CPT/HCPCS: 73560; 73565 ==

== ENCOUNTER 2020-08-11 13:47 | Outpatient (CLI) | payer MEDICARE, MEDICAID, SELFPAY ==
--- NOTE | 2020-08-11 14:00 | XR_ITS ---
WS: [id number] DEXA (DUAL ENERGY X-RAY ABSORPTIOMETRY) Bone mineral density was performed using a [employer] machine. HISTORY: POSTMENOPAUSAL COMPARISON: 05/25/2018 Lumbar spine BMD (L1-L4): 1.392 g/cm2 T score: 1.8 Z score: 3.6 Total hip BMD: Left: 0.965 g/cm2. T score: -0.3 Z score: 1.9 Right: 0.909 g/cm2. T score: -0.8 Z score: 1.4 10 year probability of a major osteoporotic fracture is 10%. Compared to the prior study from 05/25/2018. Lumbar spine bone mineral density has decreased by 5.4%. Bilateral hips bone mineral density has decreased by 4.5%. XR/XR DEXA axial skeleton* [id number] IMPRESSION: NORMAL BONE MINERAL DENSITY based upon the WHO classification for females. Sign ificant decrease in bone mineral density within the lumbar spine and hips since the prior study.
== END 2020-08-11 13:48 | disposition home or self-care (01) ==
LOC: RADWPI 13:50
PROVIDERS: PCP Family Medicine; Visit Provider Family Medicine
DX: Z78.0 Asymptomatic menopausal state (principal)
CPT/HCPCS: 77080

== ENCOUNTER 2020-08-26 12:59 | Outpatient (CLI) | payer MEDICARE, MEDICAID, SELFPAY ==
--- NOTE | 2020-08-26 20:18 | ONC FU_ITS ---
Dr. Asif Patient Follow-Up Note Patient: Miriam Krishnan Unit #: [id number]: 1935 Dicatated By: Sarath Asif M.D.Date of Visit:Aug 26, 2020 Onc Med Follow-up/Prog Note Chief Complaint: Breast cancer. History of Present Illness: This is an 84 year-old woman with invasive lobular carcinoma of the left breast, stage IIA (T2, N0, M0), ER/NH positive and HER-2/yasir negative. She had been followed for some architectural distortion in the superior left breast which was thought to most likely be benign. However, a six-month follow-up ultrasound the left breast in October 2015 showed a hypoechoic focus in the 9:00 position of the left breast and a similar focus in the 10:00 position which were felt to be more suspicious, and biopsy was recommended. She then underwent ultrasound-guided needle biopsy on 11/28/2015. Pathology showed dense fibrous parenchyma with scattered foci of LCIS admixed with small foci of invasive lobular carcinoma. The best prognosis profile showed the tumor to be ER positive at 94% and NH positive at 9%. The Ki-67 was intermediate at 15%. It was negative for overexpression of HER-2/yasir, 2+ by IHC with amplification ratio by FISH of 1.2 with 1.9 HER-2 copies per cell. On 12/11/2015 she underwent left breast lumpectomy. Pathology showed a tumor comprised of both lobular carcinoma in situ and invasive lobular carcinoma. The invasive component measured 2.4 cm in greatest dimension. There was invasive carcinoma noted extending to the anterior, inferior, and medial margins. On 01/01/2016 she underwent reexcision lumpectomy with sentinel left axillary lymph node biopsy. There was no residual tumor identified in the reexcision specimen. There was no involvement noted in 3 axillary sentinel lymph nodes. I had seen her initially on 01/23/2016. In reviewing her medications, it was noted that she had been taking raloxifene. It took her some time to remember why, but eventually she did recall having participated in the STAR trial. To my recollection this was a comparison of raloxifene and tamoxifen for breast cancer prevention. When the study concluded, she learned that she had been on the tamoxifen arm, but she then developed some symptoms when she stopped taking it, and at that point Dr. Naidu had put her on raloxifene. I did have her stop taking it. She had further evaluation with Oncotype DX. It showed a recurrence of 20 corresponding to a 13% risk of distant recurrence at 10 years with hormonal therapy alone. She declined chemotherapy. She was given radiation to the left breast, which she completed on 04/05/2016 to a total dose of 6,000 cGy. Adjuvant hormonal therapy with anastrozole 1 mg daily began in May 2016. Her baseline bone density on 05/24/2016 was normal. Her other medical illnesses include hypertension, degenerative arthritis, glaucoma, and macular degeneration. She had smoked in the past, but only for about 5 years. She quit at age 35. INTERIM HISTORY: During her subsequent follow-up she had tolerated the anastrozole without significant adverse effects. Her repeat DEXA scan on 05/25/2018 showed normal bone mineralization with T score 2.4 in the lumbar spine, -0.2 in the left femoral neck, and -0.2 in the right femoral neck. As of her follow-up visit in August 2019 she appeared stable clinically. She continued adjuvant hormonal therapy with anastrozole 1 mg daily. On 01/07/2020 she underwent right total knee arthroplasty for degenerative arthritis. She had no complications with the surgery. She is seen for a scheduled visit. She has been feeling good generally. She has not been quite as active, as she is moved in with her daughter while her children and grandchildren are building her house. Her ECOG score is 1. She says her appetite is not that good, but she does eat. Her weight is down a couple of pounds. She does not have fever or night sweats. She has no shortness of breath, cough, or chest pain. She has no GI complaints. She does have some bladder control issues. She has no significant joint or bone pain. She has dizziness, which he manages with meclizine. She does not complain of headache and she has no focal neurologic symptoms. Medications: Alphagan P 1 drop(s) Solution Ophthalmic b.i.d., Anastrozole 1 (1 mg) Tablet Oral daily, Fluorouracil 1 (5 %) Cream Topical b.i.d., FLUoxetine HCl 1 Capsule (of 10 mg) Oral daily, Latanoprost 1 drop(s) Solution Ophthalmic daily, Lisinopril-Hydrochlorothiazide 1.5 Tablet (of 20-12.5 mg) Oral daily, Meclizine HCl 1 Tablet (of 25 mg) Oral daily, Meloxicam 1 Tablet (of 15 mg) Oral daily, Metoprolol Succinate ER 1 Tablet (of 200 mg) Tablet SR 24 HR Oral daily, Potassium Chloride Leisa ER 2 Tablet (of 20 meq) Tablet, controlled release Oral daily, PreserVision AREDS 2 1 Capsule Oral daily Allergies: No Known Allergies. Vital Signs: Performed on Aug 26, 2020 13:26 Height - 65.00 in Weight - 156.6 lbs (HIGH) BSA - 1.78 sq.m BMI - 26.06 Temperature - 98.3 F (LOW) Pulse - 73 /min Respiration - 18 /min BP - 168/77 mm(hg) (HIGH) O2 Sat - 98 % Pain - 0 Fatigue - 0 Physical Examination: Constitutional - She looks good generally, Eyes - Sclerae nonicteric. Conjunctivae clear, ENMT - No lesions noted in the oral cavity, Hematologic/Lymphatic - No cervical, clavicular, or axillary adenopathy, Respiratory - Lungs are clear with good air movement bilaterally, Cardiovascular - Heart rhythm is regular. There is no murmur, gallop, or rub noted, Abdomen - Soft. Liver and spleen are not enlarged. There is no abdominal mass or ascites noted and there is no inguinal adenopathy, Extremities - No edema. Dorsalis pedis pulses are palpable bilaterally, Neurologic - No focal neurologic deficits noted. Problem List: 1. Invasive lobular carcinoma of the left breast, stage IIA (T2, N0, M0), ER/NH positive and HER-2/yasir negative. She was low risk by Oncotype DX. 2. Hypertension. 3. Degenerative arthritis. 4. Macular degeneration. Problems Addressed with this Encounter and Plan: Patient with invasive lobular carcinoma of the left breast, stage IIA (T2, N0, M0), ER/NH positive and HER-2/yasir negative. There was also a component of lobular carcinoma in situ. Her treatment included lumpectomy followed by reexcision lumpectomy and sentinel left axillary lymph node biopsy on 01/01/2016. Her Oncotype DX showed a recurrence score of 20 corresponding to a 13% risk of distant recurrence at 10 years with adjuvant hormonal therapy. She declined chemotherapy. She was given radiation to the left breast, completed on 04/05/2016 to a total dose of 6000 cGy. Adjuvant hormonal therapy with anastrozole 1 mg daily began in May 2016. Her baseline bone density was normal. During follow-up she has tolerated the anastrozole with no significant adverse effects. Overall, she appears to be doing very well clinically with no evidence of recurrence of the breast cancer. She continues adjuvant hormonal therapy with anastrozole 1 mg daily. I will see her again in May, at which point she will have completed 5 years of adjuvant therapy. Signed By: Sarath Asif M.D. <<Signature on File>>
== END 2020-08-26 13:00 | disposition home or self-care (01) ==
PROVIDERS: PCP Family Medicine; Visit Provider Internal Medicine Medical Oncology
DX: C50.212 Malignant neoplasm of upper-inner quadrant of left female breast (principal); Z17.0 Estrogen receptor positive status [ER+]; Z92.3 Personal history of irradiation; Z79.811 Long term (current) use of aromatase inhibitors
CPT/HCPCS: 99214

== ENCOUNTER 2020-09-15 13:42 | Outpatient (CLI) | payer MEDICARE, MEDICAID, SELFPAY ==
--- NOTE | 2020-09-15 13:46 | MM_ITS ---
WS: [id number] DIAGNOSTIC BILATERAL DIGITAL MAMMOGRAM WITH CAD HISTORY: HX OF BREAST CA COMPARISON: 08/27/2019, 08/24/2018 and 08/23/2017 TECHNIQUE: Bilateral craniocaudad, mediolateral oblique, and mediolateral views are submitted. Comput er aided detection utilized. Breast composition: The breasts are extremely dense, which lowers the sensitivity of mammography. Mar ked distortion of the LEFT breast due to prior surgery and scarring. There are a few benign scattered calcifications. No mass. Numerous calcifications scattered throughout the RIGHT breast. No suspiciou s cluster of calcifications. MM/[place] [id number] IMPRESSION: BI-RADS: 2-Benign FOLLOW UP: 1 Year Follow-up
== END 2020-09-15 13:43 | disposition home or self-care (01) ==
LOC: RADSHAW 13:45
PROVIDERS: PCP Family Medicine; Visit Provider Internal Medicine Medical Oncology
DX: Z85.3 Personal history of malignant neoplasm of breast (principal)
CPT/HCPCS: 77066

== ENCOUNTER 2020-10-02 22:24 | Emergency (ER) | payer MEDICARE, MEDICAID, SELFPAY ==
--- NOTE | 2020-10-02 22:26 | XR_ITS ---
WS: [id number] Portable AP upright chest, 10/02/2020 Clinical Data: weakness Comparison: PA and lateral chest, 12/27/2019. Findings: No nodules, masses or effusions are seen. The heart is normal. The pulmonary vascularity is not increased. No pneumonia or pneumothorax is seen. The aortic arch and descending aorta show mild tortuosity. The diaphragms are flattened. XR/XR chest 1V portable [id number] Impression: Atherosclerosis and hyperinflation.
[2020-10-02 22:28] VITALS: BP 153/83; PULSE 77; RESP 18; TEMP 36.4; O2SAT 92; BMI 25.4
--- NOTE | 2020-10-02 22:52 | W.ED.WEAKNES ---
HPI - Weakness General: Chief complaint: Weakness Stated complaint: HEAD COLD, WEAK, SICK X 2 DAYS Time Seen by Provider: 10/02/20 22:27 Source: patient Mode of arrival: ambulatory Limitations: no limitations History of Present Illness: HPI Narrative: 34-year-old female states over the last 4 to 5 days she has had a slight cough. She denies any shortness of breath or fever. She states she has had increased weakness over the last 2 days. States she has been able to walk but has been more difficult. She states she had her Covid vaccine roughly 2 months ago. Denies any known sick contacts. Associated symptoms: Denies chest pain, chills, dysuria, easy bruising, fever(s), nausea or vomiting Review of Systems Const: Denies: fever(s), chills, body aches or change in appetite Eyes: Denies: blurry vision or eye discomfort ENMT: Denies: throat pain or dental pain Card: Denies: chest pain Resp: Reports: productive cough GI: Denies: abdominal pain, nausea, vomiting or diarrhea : Denies: dysuria Musc: Denies: neck pain or back pain Skin/Breast: Denies: rash Neuro: Reports: weakness in extremities Psych: Denies: depression Mauricio/Lymph: Denies: easy bruising All/Imm: Denies: urticaria PFSH ED PFSH: Medical History (Updated 10/03/20 @ 00:40 by Adrienne Manuel MD) GERD (gastroesophageal reflux disease) History of breast cancer Hypertension Macular degeneration Surgical History History of bladder repair surgery History of cholecystectomy Social History Smoking and tobacco status: never smoked Alcohol intake: never Female Reproductive History: Date of last menstrual period: 06/20/74 Physical Exam Const: COMMON NORMALS: no acute distress, patient oriented x3 and healthy appearing HENMT: COMMON NORMALS: normocephalic and atraumatic HEAD & SCALP: normocephalic and atraumatic Eye: COMMON NORMALS: Equal, round and reactive pupils present and EOMs intact bilaterally PUPIL: Yes Equal, round and reactive pupils present Neck/C-Spine: COMMON NORMALS: full ROM and supple Chest: COMMONS NORMALS: normal inspection of the chest and normal palpation of entire chest wall Resp: COMMON NORMALS: normal respiratory effort, No retractions, No use of accessory muscles and clear to auscultation bilaterally AUSCULTATION: clear to auscultation bilaterally Cardio: COMMON NORMALS: regular rate, regular rhythm and No murmurs present (Cardio) RATE: regular rate RHYTHM: regular rhythm GI: COMMON NORMALS: Normal to inspection, nondistended, normoactive bowel sounds present, Soft to palpation, non-tender and no masses PALPATION: Yes Soft to palpation Extremity: COMMON NORMALS: normal to inspection and full ROM Neuro: COMMON NORMALS: patient oriented x3, moves all extremities and no focal motor deficits Psych: COMMON NORMALS: mental status grossly normal, Normal thought process present and cooperative THOUGHT PROCESS: Normal thought process present Skin: COMMON NORMALS: no rashes or lesions noted and no wounds GENERAL SKIN EXAM: no rashes or lesions noted Course Vital Signs: Vital signs: Vital Signs Temperature 97.5 F L 10/02/20 22:28 Pulse Rate 82 10/03/20 00:00 Respiratory Rate 17 10/03/20 00:00 Blood Pressure 168/98 10/03/20 00:00 Pulse Oximetry 91 10/03/20 00:00 MDM - Weakness MDM Narrative: Medical decision making narrative: And presents with a cough and likely upper respiratory infection. Patient has no signs of pneumonia but will place her on Keflex. She does have generalized weakness but head CT and blood work are all normal. I did offer her admission but she states she would like to go home. I informed her if she has any worsening she is to return. She is to follow-up with her PCP in 3 to 5 days. Lab Data: Labs: Lab Results 10/02/20 10/02/20 10/02/20 Range/Units 22:50 23:00 23:00 WBC 9.9 (4.0-10.0) 10^3/ uL RBC 4.18 (4.1-5.3) 10^6/u L Hgb 13.3 (11.5-15.3) g/dL Hct 41.7 (37.0-47.0) % MCV 99.8 H (81-99) fL MCH 31.8 (28.0-34.0) pg MCHC 31.9 (30.0-36.0) g/dL RDW 11.9 L (12.1-15.1) % Plt Count 236 (130-400) 10^3/c mm MPV 10.2 (7.4-10.4) fL Neut % (Auto) 68.3 % Lymph % (Auto) 19.0 % Arroyo % (Auto) 11.6 % Eos % (Auto) 0.4 % Baso % (Auto) 0.3 % Neut # (Auto) 6.74 (1.8-7.7) 10^3/u L Lymph # (Auto) 1.9 (0.8-4.8) 10^3/u L [place] # (Auto) 1.2 H (0.2-0.9) 10^3/u L Eos # (Auto) 0.0 (0.0-0.8) 10^3/u L Baso # (Auto) 0.0 (0.0-0.1) 10^3/u L Nucleated RBC % (a uto) 0 % Nucleated RBCs # 0.0 /100WBC Sodium 137 (136-145) mmol/L Potassium 3.1 L (3.5-5.1) mmol/L Chloride 97 L (98-107) mmol/L Carbon Dioxide 28 (22-29) mmol/L Anion Gap 15.1 (5-19) BUN 13 (8-23) mg/dL Creatinine 0.7 (0.5-0.9) mg/dL GFR Calculation Not Reportable Glucose 212 H (65-115) mg/dL Calculated Osmolal ity 290 (285-295) mOsm/k g Lactate (0.5-2.2) mmol/L Calcium 8.6 (8.5-10.5) mg/dL Total Bilirubin 0.9 (0.15-1.2) mg/dL AST 13 (0-32) U/L ALT 6 (0-33) U/L Alkaline Phosphata se 96 (35-105) IU/L Total Protein 7.2 (6.6-8.7) g/dL Albumin 4.2 (3.5-5.2) g/dL Globulin 3.0 (1.3-4.6) g/dL Urine Color Yellow (Yellow) Urine Appearance Clear (CLEAR) Urine pH 5 (5-7) Ur Specific Gravit y 1.010 (1.005-1.030) Urine Protein Neg (Negative) Urine Glucose (UA) 1+ (Normal) Urine Ketones 1+ H (Negative) Urine Blood Neg (Negative) Urine Nitrate Negative (Negative) Urine Bilirubin Neg (Negative) Urine Urobilinogen 1 H (Negative) mg/dL Ur Leukocyte Ida ase Negative (Negative) SARS-CoV-2 Ag (Rap id) (Negative) 10/02/20 10/02/20 Range/Units 23:00 23:00 WBC (4.0-10.0) 10^3/ uL RBC (4.1-5.3) 10^6/u L Hgb (11.5-15.3) g/dL Hct (37.0-47.0) % MCV (81-99) fL MCH (28.0-34.0) pg MCHC (30.0-36.0) g/dL RDW (12.1-15.1) % Plt Count (130-400) 10^3/c mm MPV (7.4-10.4) fL Neut % (Auto) % Lymph % (Auto) % [place]roy[place] % (Auto) % Eos % (Auto) % Baso % (Auto) % Neut # (Auto) (1.8-7.7) 10^3/u L Lymph # (Auto) (0.8-4.8) 10^3/u L [place] # (Auto) (0.2-0.9) 10^3/u L Eos # (Auto) (0.0-0.8) 10^3/u L Baso # (Auto) (0.0-0.1) 10^3/u L Nucleated RBC % (a uto) % Nucleated RBCs # /100WBC Sodium (136-145) mmol/L Potassium (3.5-5.1) mmol/L Chloride (98-107) mmol/L Carbon Dioxide (22-29) mmol/L Anion Gap (5-19) BUN (8-23) mg/dL Creatinine (0.5-0.9) mg/dL GFR Calculation Glucose (65-115) mg/dL Calculated Osmolal ity (285-295) mOsm/k g Lactate 1.4 (0.5-2.2) mmol/L Calcium (8.5-10.5) mg/dL Total Bilirubin (0.15-1.2) mg/dL AST (0-32) U/L ALT (0-33) U/L Alkaline Phosphata se (35-105) IU/L Total Protein (6.6-8.7) g/dL Albumin (3.5-5.2) g/dL Globulin (1.3-4.6) g/dL Urine Color (Yellow) Urine Appearance (CLEAR) Urine pH (5-7) Ur Specific Gravit y (1.005-1.030) Urine Protein (Negative) Urine Glucose (UA) (Normal) Urine Ketones (Negative) Urine Blood (Negative) Urine Nitrate (Negative) Urine Bilirubin (Negative) Urine Urobilinogen (Negative) mg/dL Ur Leukocyte Ida ase (Negative) SARS-CoV-2 Ag (Rap id) Negative (Negative) Imaging Data^: CXR: Attestation: I personally reviewed and interpreted this imaging study as follows: My impression: no acute abnormality CT Head: Radiologist's impression: [address] [address] [address] Scan Report Signed Patient: Miriam Krishnan Unit #: [id number] : 1935 Age/Sex: 84 / F ADM Date: 10/02/20 Loc: ER Room/Bed: Attending Dr: Ordering Provider/Ordering MD: Adrienne Manuel MD Date of Service: 10/02/20 Procedure(s): CT head wo con* [id number] Accession Number(s): [id number] Report Number: [id number] PROCEDURE INFORMATION: Exam: CT Head Without Contrast Exam date and time: 10/02/2020 11:39 PM Age: 84 years old Clinical indication: Other: General weakness; Additional info: AMS TECHNIQUE: Imaging protocol: Computed tomography of the head without contrast. Radiation optimization: All CT scans at this facility use at least one of these dose optimization techniques: automated exposure control; mA and/or kV adjustment per patient size (includes targeted exams where dose is matched to clinical indication); or iterative reconstruction. COMPARISON: [place] [id number] 01/06/2017 2:12 PM RADIATION DOSE METRICS: Total DLP (mGy-cm): 822.06 FINDINGS: Brain: There is moderate cortical atrophy. Low-density changes in the white matter are consistent with nonspecific small vessel chronic ischemic change. There is no intracranial mass, hemorrhage or edema. Cerebral ventricles: No ventriculomegaly. Bones/joints: Unremarkable. No acute fracture. Paranasal sinuses: There is partial opacification of ethmoid air cells. Mastoid air cells: Visualized mastoid air cells are well aerated. Soft tissues: Unremarkable. CT/CT head wo con* [id number] IMPRESSION: 1. Atrophy and chronic ischemic changes. No acute intracranial finding. 2. Ethmoid sinusitis. Discharge Plan Discharge Patient Disposition: Home Clinical Impression: Weakness Upper respiratory infection Qualifiers: URI type: unspecified URI Qualified Code(s): J06.9 - Acute upper respiratory infection, unspecified Condition: Stable Prescriptions: New cephalexin 500 mg capsule 500 mg PO TID 7 Days Qty: 21 RF: 0 No Action fluoxetine [Prozac] 10 mg capsule 10 mg PO DAILY RF: 0 meclizine 25 mg tablet 25 mg PO BID RF: 0 metoprolol succinate [Toprol XL] 200 mg tablet extended release 24 hr 200 mg PO DAILY RF: 0 latanoprost [Xalatan] 0.005 % drops 1 drop ophthalmic (eye) DAILY RF: 0 potassium chloride 20 mEq tablet extended release 20 meq PO DAILY RF: 0 lisinopril-hydrochlorothiazide 20-12.5 mg tablet 1 tab PO DAILY RF: 0 mupirocin 2 % ointment 1 applic TOPICAL BID Qty: 22 RF: 0 anastrozole 1 mg tablet 1 mg PO DAILY RF: 0 Alphagan P 0.1 % drops 1 drp ophthalmic (eye) DAILY RF: 0 celecoxib 200 mg Capsule 200 mg PO Q12H Qty: 3 RF: 0 hydrocodone-acetaminophen 5-325 mg Tablet 1 tab PO Q4H PRN (Reason: Moderate Pain) Qty: 30 RF: 0 aspirin 325 mg Tablet,Delayed Release (Dr/Ec) 325 mg PO DAILY Qty: 30 RF: 0 Discharge Orders: Discharge ED (Routine); Ordered 10/03/20 Ordered By: Adrienne Manuel Referrals: Eric Blanchard MD [Primary Care Provider] - 1-3 days Discharge Diet: Advance as tolerated Discharge Activity: Resume usual activity Patient Instructions: Upper Respiratory Infection (ED) Coding Level of Care Code ED Conference Interpreter for Chg Fwd Exam Comprehensive
[2020-10-02 22:56] LABS: Add Urine Microscopic? NO; Charge for UA Resulting for Rev
[2020-10-02 23:01] LABS: Bilirubin Urine Neg (Negative); Blood Urine Neg (Negative); Glucose Urine UA 1+ (Normal); Ketones Urine 1+ (Negative); Leukocyte Esterase Urine Negative (Negative); Nitrate Urine Negative (Negative); Protein Urine Neg (Negative); Urine Appearance Clear (CLEAR); Urine Color Yellow (Yellow); Urobilinogen Urine 1 mg/dL (Negative); pH Urine 5 (5-7)
[2020-10-02 23:05] VITALS: BP 170/83; PULSE 78; RESP 17; O2SAT 91
[2020-10-02 23:15] LABS: Basophils % 0.3 %; Eosinophils % 0.4 %; Hematocrit 41.7 % (37.0-47.0); Hemoglobin 13.3 g/dL (11.5-15.3); Lymphocytes # 1.9 10^3/uL (0.8-4.8); Mean Corpuscular HGB Conc 31.9 g/dL (30.0-36.0); Mean Corpuscular Hemoglobin 31.8 pg (28.0-34.0); Mean Corpuscular Volume 99.8 fL (81-99); Mean Platelet Volume 10.2 fL (7.4-10.4); Monocytes # 1.2 10^3/uL (0.2-0.9); Monocytes % 11.6 %; Neutrophils # 6.74 10^3/uL (1.8-7.7); Neutrophils % 68.3 %; Nucleated Red Blood Cells % 0 %; Platelet Count 236 10^3/cmm (130-400); Red Blood Count 4.18 10^6/uL (4.1-5.3); Red Cell Distribution Width 11.9 % (12.1-15.1); White Blood Count 9.9 10^3/uL (4.0-10.0)
[2020-10-02] MEDS: sodium chloride 0.9% 1,000 ML 999 ML IV (23:15)
[2020-10-02 23:27] LABS: Alanine Aminotransferase 6 U/L (0-33); Albumin Level 4.2 g/dL (3.5-5.2); Alkaline Phosphatase 96 IU/L (35-105); Anion Gap 15.1 (5-19); Aspartate Amino Transferase 13 U/L (0-32); Blood Urea Nitrogen 13 mg/dL (8-23); Calcium 8.6 mg/dL (8.5-10.5); Carbon Dioxide 28 mmol/L (22-29); Chloride 97 mmol/L (98-107); Glucose 212 mg/dL (65-115); Lactate (Lactic Acid level) 1.4 mmol/L (0.5-2.2); Osmolality Calculated 290 mOsm/kg (285-295); Potassium 3.1 mmol/L (3.5-5.1); Sodium 137 mmol/L (136-145); Total Bilirubin 0.9 mg/dL (0.15-1.2); Total Protein 7.2 g/dL (6.6-8.7)
[2020-10-02 23:29] LABS: SARS Covid-2 Antigen Negative (Negative)
--- NOTE | 2020-10-02 23:36 | CTR_ITS ---
PROCEDURE INFORMATION: Exam: CT Head Without Contrast Exam date and time: 10/02/2020 11:39 PM Age: 84 years old Clinical indication: Other: General weakness; Additional info: AMS TECHNIQUE: Imaging protocol: Computed tomography of the head without contrast. Radiation optimization: All CT scans at this facility use at least one of these dose optimization techniques: automated exposure control; mA and/or kV adjustment per patient size (includes targeted exams where dose is matched to clinical indication); or iterative reconstruction. COMPARISON: [place] [facility] [place] [id number] 01/06/2017 2:12 PM RADIATION DOSE METRICS: Total DLP (mGy-cm): 822.06 FINDINGS: Brain: There is moderate cortical atrophy. Low-density changes in the white matter are consistent with nonspecific small vessel chronic ischemic change. There is no intracranial mass, hemorrhage or edema. Cerebral ventricles: No ventriculomegaly. Bones/joints: Unremarkable. No acute fracture. Paranasal sinuses: There is partial opacification of ethmoid air cells. Mastoid air cells: Visualized mastoid air cells are well aerated. Soft tissues: Unremarkable. CT/CT head wo con* [id number] IMPRESSION: 1. Atrophy and chronic ischemic changes. No acute intracranial finding. 2. Ethmoid sinusitis. Radiation Dose CTDIVOL = (mGy): DLP = 822.06 (mGy-cm)
[2020-10-03] VITALS: BP 168/98; PULSE 82; RESP 17; O2SAT 91
[2020-10-03 00:55] VITALS: BP 156/82; PULSE 78; RESP 17; TEMP 36.6; O2SAT 93
== END 2020-10-03 00:58 | disposition home or self-care (01) ==
PROVIDERS: Nurse Practitioner Family; Emergency Provider Emergency Medicine; PCP Family Medicine
DX: R53.1 Weakness (principal); J06.9 Acute upper respiratory infection, unspecified; Z79.82 Long term (current) use of aspirin; I10 Essential (primary) hypertension; Z85.3 Personal history of malignant neoplasm of breast
CPT/HCPCS: 70450; 71045; 80053; 81003; 83605; 85025; 87426; 96360; 99284; J7030

== ENCOUNTER 2020-10-05 15:02 | Emergency (ER) | payer MEDICARE, MEDICAID, SELFPAY ==
[2020-10-05 15:06] VITALS: BP 169/81; PULSE 77; RESP 18; O2SAT 94; BMI 25.4
--- NOTE | 2020-10-05 16:06 | ED_ITS ---
Documented by User: TIMBO Escobedo 10/05/20 16:07 HPI - General Adult General: Chief complaint: General Medical Stated complaint: COLD SYMPTOIMS GETTING WORSE Time Seen by Provider: 10/05/20 15:54 History of Present Illness: HPI narrative: Patient complains of generalized weakness eye starting the mat and sinus pain. Denies fever chills bladder problems nausea vomiting or other related problems MD complaint: Sinus pain and eyes matting Onset (ago): day(s) Location: face and eyes Severity: mild Associated symptoms: Reports weakness; Deny chest pain, dyspnea, headache(s), nausea, rash or vomiting Review of Systems Const: Denies: fever(s), chills or body aches Eyes: Reports: eye discharge and eye redness; Denies: change in vision or blurry vision ENMT: Reports: nasal congestion and sinus pain; Denies: throat pain Card: Denies: chest pain or dyspnea on exertion Resp: Denies: dyspnea, productive cough or non-productive cough GI: Denies: abdominal pain, nausea or vomiting Musc: Denies: extremity pain Skin/Breast: Denies: rash Neuro: Denies: headache(s) Psych: Denies: anxiety or depression Mauricio/Lymph: Denies: easy bruising PFSH ED PFSH: Medical History (Updated 10/05/20 @ 16:53 by TIMBO Escobedo) GERD (gastroesophageal reflux disease) History of breast cancer Hypertension Macular degeneration Surgical History History of bladder repair surgery History of cholecystectomy Social History Smoking and tobacco status: never smoked Alcohol intake: never Female Reproductive History: Date of last menstrual period: 06/20/74 Physical Exam Const: COMMON NORMALS: no acute distress, average body habitus and patient oriented x3 HENMT: COMMON NORMALS: normocephalic HEAD & SCALP: normal to inspection and normocephalic FACE & SINUS: normal facial exam Eye: CONJUNCTIVA: Yes conjunctival abnormal positive bilateral conjunctival injection and other (Matting seen in corner both eyes) Neck/C-Spine: COMMON NORMALS: no JVD Chest: COMMONS NORMALS: normal inspection of the chest Resp: COMMON NORMALS: normal respiratory effort and clear to auscultation bilaterally AUSCULTATION: clear to auscultation bilaterally Cardio: COMMON NORMALS: no JVD, regular rate and regular rhythm RATE: regular rate RHYTHM: regular rhythm GI: COMMON NORMALS: Normal to inspection, nondistended, normoactive bowel sounds present Extremity: COMMON NORMALS: normal to inspection and full ROM Neuro: COMMON NORMALS: patient oriented x3 Course Vital Signs: Vital signs: Vital Signs Pulse Rate 77 10/05/20 15:06 Respiratory Rate 18 10/05/20 15:06 Blood Pressure 169/81 10/05/20 15:06 Pulse Oximetry 94 10/05/20 15:06 [facility] - General Adult Lab Data: Labs: Lab Results 10/05/20 10/05/20 10/05/20 Range/Units 16:21 16:21 16:37 WBC 7.8 (4.0-10.0) 10^3/ uL RBC 3.60 L (4.1-5.3) 10^6/u L Hgb 11.7 (11.5-15.3) g/dL Hct 34.8 L (37.0-47.0) % MCV 96.7 (81-99) fL MCH 32.5 (28.0-34.0) pg MCHC 33.6 (30.0-36.0) g/dL RDW 11.7 L (12.1-15.1) % Plt Count 232 (130-400) 10^3/c mm MPV 9.6 (7.4-10.4) fL Neut % (Auto) 57.4 % Lymph % (Auto) 29.1 % [place] % (Auto) 11.8 % Eos % (Auto) 0.9 % Baso % (Auto) 0.4 % Neut # (Auto) 4.47 (1.8-7.7) 10^3/u L Lymph # (Auto) 2.3 (0.8-4.8) 10^3/u L [place] # (Auto) 0.9 (0.2-0.9) 10^3/u L Eos # (Auto) 0.1 (0.0-0.8) 10^3/u L Baso # (Auto) 0.0 (0.0-0.1) 10^3/u L Nucleated RBC % (a uto) 0 % Nucleated RBCs # 0.0 /100WBC Sodium 139 (136-145) mmol/L Potassium 3.5 (3.5-5.1) mmol/L Chloride 101 (98-107) mmol/L Carbon Dioxide 30 H (22-29) mmol/L Anion Gap 11.5 (5-19) BUN 10 (8-23) mg/dL Creatinine 0.6 (0.5-0.9) mg/dL GFR Calculation Not Reportable Glucose 197 H (65-115) mg/dL Calculated Osmolal ity 293 (285-295) mOsm/k g Calcium 8.3 L (8.5-10.5) mg/dL Total Bilirubin 0.7 (0.15-1.2) mg/dL AST 15 (0-32) U/L ALT 6 (0-33) U/L Alkaline Phosphata se 84 (35-105) IU/L Total Protein 6.0 L (6.6-8.7) g/dL Albumin 3.4 L (3.5-5.2) g/dL Globulin 2.6 (1.3-4.6) g/dL Urine Color Yellow (Yellow) Urine Appearance Clear (CLEAR) Urine pH 6 (5-7) Ur Specific Gravit y 1.010 (1.005-1.030) Urine Protein Neg (Negative) Urine Glucose (UA) Norm (Normal) Urine Ketones Negative (Negative) Urine Blood Neg (Negative) Urine Nitrate Negative (Negative) Urine Bilirubin Neg (Negative) Urine Urobilinogen 1 H (Negative) mg/dL Ur Leukocyte Ida ase Negative (Negative) Discharge Plan Discharge Patient Disposition: Home Clinical Impression: Sinusitis Qualifiers: Sinusitis location: maxillary Chronicity: acute Recurrence: non-recurrent Qualified Code(s): J01.00 - Acute maxillary sinusitis, unspecified Acute bacterial conjunctivitis Qualifiers: Laterality: bilateral Qualified Code(s): H10.33 - Unspecified acute conjunctivitis, bilateral Condition: Stable Prescriptions: New gentamicin 0.3 % drops 1 drp ophthalmic (eye) QID 7 Days Qty: 5 RF: 0 Augmentin 875-125 mg tablet 1 tab PO BID Qty: 14 RF: 0 Discontinued cephalexin 500 mg capsule 500 mg PO TID 7 Days Qty: 21 RF: 0 No Action fluoxetine [Prozac] 10 mg capsule 10 mg PO DAILY RF: 0 meclizine 25 mg tablet 25 mg PO BID RF: 0 metoprolol succinate [Toprol XL] 200 mg tablet extended release 24 hr 200 mg PO DAILY RF: 0 latanoprost [Xalatan] 0.005 % drops 1 drop ophthalmic (eye) DAILY RF: 0 potassium chloride 20 mEq tablet extended release 20 meq PO DAILY RF: 0 lisinopril-hydrochlorothiazide 20-12.5 mg tablet 1 tab PO DAILY RF: 0 mupirocin 2 % ointment 1 applic TOPICAL BID Qty: 22 RF: 0 anastrozole 1 mg tablet 1 mg PO DAILY RF: 0 Alphagan P 0.1 % drops 1 drp ophthalmic (eye) DAILY RF: 0 celecoxib 200 mg Capsule 200 mg PO Q12H Qty: 3 RF: 0 hydrocodone-acetaminophen 5-325 mg Tablet 1 tab PO Q4H PRN (Reason: Moderate Pain) Qty: 30 RF: 0 aspirin 325 mg Tablet,Delayed Release (Dr/Ec) 325 mg PO DAILY Qty: 30 RF: 0 Discharge Orders: Discharge ED (Routine); Ordered 10/05/20 Ordered By: Katy Jefferson Referrals: Eric Blanchard MD [Primary Care Provider] - Discharge Diet: Usual diet Discharge Activity: Increase activity as tolerated Patient Instructions: Sinusitis (ED), Conjunctivitis (ED) Activity Restrictions/Additional Instructions: Protein level was found to be low on your lab results from today, recommend Ensure, 1 can daily along with multivitamin Stop Keflex, cephalexin as antibiotic therapy has changed Augmentin 875 mg p.o. twice daily for 7 days prescription provided, take antibiotics until all gone Rinse eyes with warm water to help with exudate, may use baby shampoo if exudate is too thick to remove with water alone [place] nasal saline, 2 to 3 sprays in each nostril every 2-3 hours as needed for nasal congestion may be helpful to clear sinuses Turn to the emergency department for worsening symptoms, follow-up with your primary care provider in 2 to 3 days to ensure you are improving May take Tylenol as needed for pain Coding Level of Care Code ED Ironworker Apprentice for Chg Fwd Exam Comprehensive Documented by User: JACKY Benites 10/05/20 17:42 HPI - General Adult General: Chief complaint: General Medical Stated complaint: COLD SYMPTOIMS GETTING WORSE Time Seen by Provider: 10/05/20 15:54 PFSH ED PFSH: Medical History (Updated 10/05/20 @ 16:53 by TIMBO Escobedo) GERD (gastroesophageal reflux disease) History of breast cancer Hypertension Macular degeneration Surgical History History of bladder repair surgery History of cholecystectomy Social History Smoking and tobacco status: never smoked Alcohol intake: never Course Vital Signs: Vital signs: Vital Signs Pulse Rate 77 10/05/20 15:06 Respiratory Rate 18 10/05/20 15:06 Blood Pressure 169/81 10/05/20 15:06 Pulse Oximetry 94 10/05/20 15:06 MDM - General Adult MDM Narrative: Medical decision making narrative: Transition of care from José Miguel Carbajal NP due to shift change, urinalysis pending at shift change, diagnosis of acute sinusitis carried forward, patient remains on Keflex and has not improved with sinus symptoms. Urinalysis did not reveal UTI, patient was placed on Augmentin for acute rhinosinusitis; recommended [place] nasal saline to help with nasal irrigation with a follow-up with your primary care provider in 48 hours to ensure she is improving. Protein level was found to be low, I encouraged use of Ensure, 1 can daily along with a multivitamin. She reports does not drink a lot of fluids. Gentamicin eyedrops were prescribed for conjunctivitis. Questions were answered, daughter was at bedside, advised to return the emergency department for worsening symptoms. Lab Data: Labs: Lab Results 10/05/20 10/05/20 10/05/20 Range/Units 16:21 16:21 16:37 WBC 7.8 (4.0-10.0) 10^3/ uL RBC 3.60 L (4.1-5.3) 10^6/u L Hgb 11.7 (11.5-15.3) g/dL Hct 34.8 L (37.0-47.0) % MCV 96.7 (81-99) fL MCH 32.5 (28.0-34.0) pg MCHC 33.6 (30.0-36.0) g/dL RDW 11.7 L (12.1-15.1) % Plt Count 232 (130-400) 10^3/c mm MPV 9.6 (7.4-10.4) fL Neut % (Auto) 57.4 % Lymph % (Auto) 29.1 % Roosevelt % (Auto) 11.8 % Eos % (Auto) 0.9 % Baso % (Auto) 0.4 % Neut # (Auto) 4.47 (1.8-7.7) 10^3/u L Lymph # (Auto) 2.3 (0.8-4.8) 10^3/u L Roosevelt # (Auto) 0.9 (0.2-0.9) 10^3/u L Eos # (Auto) 0.1 (0.0-0.8) 10^3/u L Baso # (Auto) 0.0 (0.0-0.1) 10^3/u L Nucleated RBC % (a uto) 0 % Nucleated RBCs # 0.0 /100WBC Sodium 139 (136-145) mmol/L Potassium 3.5 (3.5-5.1) mmol/L Chloride 101 (98-107) mmol/L Carbon Dioxide 30 H (22-29) mmol/L Anion Gap 11.5 (5-19) BUN 10 (8-23) mg/dL Creatinine 0.6 (0.5-0.9) mg/dL GFR Calculation Not Reportable Glucose 197 H (65-115) mg/dL Calculated Osmolal ity 293 (285-295) mOsm/k g Calcium 8.3 L (8.5-10.5) mg/dL Total Bilirubin 0.7 (0.15-1.2) mg/dL AST 15 (0-32) U/L ALT 6 (0-33) U/L Alkaline Phosphata se 84 (35-105) IU/L Total Protein 6.0 L (6.6-8.7) g/dL Albumin 3.4 L (3.5-5.2) g/dL Globulin 2.6 (1.3-4.6) g/dL Urine Color Yellow (Yellow) Urine Appearance Clear (CLEAR) Urine pH 6 (5-7) Ur Specific Gravit y 1.010 (1.005-1.030) Urine Protein Neg (Negative) Urine Glucose (UA) Norm (Normal) Urine Ketones Negative (Negative) Urine Blood Neg (Negative) Urine Nitrate Negative (Negative) Urine Bilirubin Neg (Negative) Urine Urobilinogen 1 H (Negative) mg/dL Ur Leukocyte Ida ase Negative (Negative) Discharge Plan Discharge Patient Disposition: Home Clinical Impression: Sinusitis Qualifiers: Sinusitis location: maxillary Chronicity: acute Recurrence: non-recurrent Qualified Code(s): J01.00 - Acute maxillary sinusitis, unspecified Acute bacterial conjunctivitis Qualifiers: Laterality: bilateral Qualified Code(s): H10.33 - Unspecified acute conjunctivitis, bilateral Condition: Stable Prescriptions: New gentamicin 0.3 % drops 1 drp ophthalmic (eye) QID 7 Days Qty: 5 RF: 0 Augmentin 875-125 mg tablet 1 tab PO BID Qty: 14 RF: 0 Discontinued cephalexin 500 mg capsule 500 mg PO TID 7 Days Qty: 21 RF: 0 No Action fluoxetine [Prozac] 10 mg capsule 10 mg PO DAILY RF: 0 meclizine 25 mg tablet 25 mg PO BID RF: 0 metoprolol succinate [Toprol XL] 200 mg tablet extended release 24 hr 200 mg PO DAILY RF: 0 latanoprost [Xalatan] 0.005 % drops 1 drop ophthalmic (eye) DAILY RF: 0 potassium chloride 20 mEq tablet extended release 20 meq PO DAILY RF: 0 lisinopril-hydrochlorothiazide 20-12.5 mg tablet 1 tab PO DAILY RF: 0 mupirocin 2 % ointment 1 applic TOPICAL BID Qty: 22 RF: 0 anastrozole 1 mg tablet 1 mg PO DAILY RF: 0 Alphagan P 0.1 % drops 1 drp ophthalmic (eye) DAILY RF: 0 celecoxib 200 mg Capsule 200 mg PO Q12H Qty: 3 RF: 0 hydrocodone-acetaminophen 5-325 mg Tablet 1 tab PO Q4H PRN (Reason: Moderate Pain) Qty: 30 RF: 0 aspirin 325 mg Tablet,Delayed Release (Dr/Ec) 325 mg PO DAILY Qty: 30 RF: 0 Discharge Orders: Discharge ED (Routine); Ordered 10/05/20 Ordered By: Katy Jefferson Referrals: Eric Blanchard MD [Primary Care Provider] - Discharge Diet: Usual diet Discharge Activity: Increase activity as tolerated Patient Instructions: Sinusitis (ED), Conjunctivitis (ED) Activity Restrictions/Additional Instructions: Protein level was found to be low on your lab results from today, recommend Ensure, 1 can daily along with multivitamin Stop Keflex, cephalexin as antibiotic therapy has changed Augmentin 875 mg p.o. twice daily for 7 days prescription provided, take antibiotics until all gone Rinse eyes with warm water to help with exudate, may use baby shampoo if exudate is too thick to remove with water alone [place] nasal saline, 2 to 3 sprays in each nostril every 2-3 hours as needed for nasal congestion may be helpful to clear sinuses Turn to the emergency department for worsening symptoms, follow-up with your primary care provider in 2 to 3 days to ensure you are improving May take Tylenol as needed for pain Coding Level of Care Code ED Ironworker Apprentice for Chg Fwd Exam Comprehensive
[2020-10-05] MEDS: gentamicin 0.3% Op Soln 5 mL Btl 1 DROP EYE-BOTH (16:26)
[2020-10-05] MEDS: cefTRIAXone 1,000 MG in lidocaine 1% 2.1 ML 1 MG IM (16:26)
[2020-10-05 16:29] LABS: Basophils % 0.4 %; Eosinophils # 0.1 10^3/uL (0.0-0.8); Eosinophils % 0.9 %; Hematocrit 34.8 % (37.0-47.0); Hemoglobin 11.7 g/dL (11.5-15.3); Lymphocytes # 2.3 10^3/uL (0.8-4.8); Lymphocytes % 29.1 %; Mean Corpuscular HGB Conc 33.6 g/dL (30.0-36.0); Mean Corpuscular Hemoglobin 32.5 pg (28.0-34.0); Mean Corpuscular Volume 96.7 fL (81-99); Mean Platelet Volume 9.6 fL (7.4-10.4); Monocytes # 0.9 10^3/uL (0.2-0.9); Monocytes % 11.8 %; Neutrophils # 4.47 10^3/uL (1.8-7.7); Neutrophils % 57.4 %; Nucleated Red Blood Cells % 0 %; Platelet Count 232 10^3/cmm (130-400); Red Cell Distribution Width 11.7 % (12.1-15.1); White Blood Count 7.8 10^3/uL (4.0-10.0)
[2020-10-05 16:43] LABS: Add Urine Microscopic? NO; Charge for UA Resulting for Rev
[2020-10-05 16:46] LABS: Alanine Aminotransferase 6 U/L (0-33); Albumin Level 3.4 g/dL (3.5-5.2); Alkaline Phosphatase 84 IU/L (35-105); Anion Gap 11.5 (5-19); Aspartate Amino Transferase 15 U/L (0-32); Blood Urea Nitrogen 10 mg/dL (8-23); Calcium 8.3 mg/dL (8.5-10.5); Carbon Dioxide 30 mmol/L (22-29); Chloride 101 mmol/L (98-107); Globulin 2.6 g/dL (1.3-4.6); Glucose 197 mg/dL (65-115); Osmolality Calculated 293 mOsm/kg (285-295); Potassium 3.5 mmol/L (3.5-5.1); Sodium 139 mmol/L (136-145); Total Bilirubin 0.7 mg/dL (0.15-1.2)
[2020-10-05 16:55] LABS: Bilirubin Urine Neg (Negative); Blood Urine Neg (Negative); Glucose Urine UA Norm (Normal); Ketones Urine Negative (Negative); Leukocyte Esterase Urine Negative (Negative); Nitrate Urine Negative (Negative); Protein Urine Neg (Negative); Urine Appearance Clear (CLEAR); Urine Color Yellow (Yellow); Urobilinogen Urine 1 mg/dL (Negative); pH Urine 6 (5-7)
[2020-10-05] MEDS: amoxicillin-clav 875-125 mg Tablet 1 TAB PO (17:49)
== END 2020-10-05 17:54 | disposition home or self-care (01) ==
PROVIDERS: Emergency Provider Nurse Practitioner Family; PCP Family Medicine
DX: J01.00 Acute maxillary sinusitis, unspecified (principal); H10.33 Unspecified acute conjunctivitis, bilateral; Z79.82 Long term (current) use of aspirin; I10 Essential (primary) hypertension; H35.30 Unspecified macular degeneration; Z85.3 Personal history of malignant neoplasm of breast
CPT/HCPCS: 80053; 81003; 85025; 96372; 99283; J0696

== ENCOUNTER 2020-10-22 20:12 | Emergency (ER) | payer MEDICARE, MEDICAID, SELFPAY ==
[2020-10-22 20:19] VITALS: BP 171/88; PULSE 80; RESP 16; TEMP 37.2; O2SAT 93; BMI 25.4
--- NOTE | 2020-10-22 20:30 | XRR_ITS ---
PROCEDURE INFORMATION: Exam: XR Chest Exam date and time: 10/22/2020 8:56 PM Age: 85 years old Clinical indication: Cough; Prior surgery; Surgery type: Gb; Patient HX: H/o breast CA TECHNIQUE: Imaging protocol: XR of the chest. Views: 1 view. COMPARISON: CR XR chest 1V portable [id number] 10/02/2020 11:03 PM FINDINGS: Lungs: Moderate emphysematous lung changes. No focal pulmonary nodule. No focal pulmonary consolidation. Pleural spaces: Unremarkable. No pleural effusion. No pneumothorax. Heart/Mediastinum: Unremarkable. No cardiomegaly. Vasculature: No vascular dilation. Bones/joints: Unremarkable. XR/XR chest 1V portable [id number] IMPRESSION: 1. No acute pulmonary disease process identified. 2. No significant change from comparison.
--- NOTE | 2020-10-22 20:41 | W.ED.URI ---
HPI - URI/Sore Throat General: Chief Complaint: Upper Respiratory Infection Stated Complaint: COUGH X 3 DAYS Time Seen by Provider: 10/22/20 20:29 Source: patient Mode of arrival: ambulatory History of Present Illness: HPI Narrative: 85-year-old female states she had a cough over the last 2 days. She states that the cough is been slightly productive and she has had chest congestion. She denies any fever. She had no shortness of breath and has no distress here. She denies any sick contacts. Denies any worsening improving factors. Associated symptoms: Deny abdominal pain, chills, chest pain, diarrhea, fever(s), headache(s), nausea or vomiting Review of Systems Const: Denies: fever(s), chills, body aches or change in appetite Eyes: Denies: blurry vision or eye discomfort ENMT: Denies: throat pain or dental pain Card: Denies: chest pain Resp: Reports: non-productive cough and chest congestion GI: Denies: abdominal pain, nausea, vomiting or diarrhea : Denies: dysuria Musc: Denies: neck pain or back pain Skin/Breast: Denies: rash Neuro: Denies: headache(s) Psych: Denies: depression Mauricio/Lymph: Denies: easy bruising All/Imm: Denies: urticaria PFSH ED PFSH: Medical History (Updated 10/22/20 @ 22:05 by Adrienne Manuel MD) GERD (gastroesophageal reflux disease) History of breast cancer Hypertension Macular degeneration Surgical History History of bladder repair surgery History of cholecystectomy Social History Smoking and tobacco status: never smoked Alcohol intake: never Female Reproductive History: Date of last menstrual period: 06/20/74 Physical Exam Const: COMMON NORMALS: no acute distress, patient oriented x3 and healthy appearing HENMT: COMMON NORMALS: normocephalic and atraumatic HEAD & SCALP: normocephalic and atraumatic Eye: COMMON NORMALS: Equal, round and reactive pupils present and EOMs intact bilaterally PUPIL: Yes Equal, round and reactive pupils present Neck/C-Spine: COMMON NORMALS: full ROM and supple Chest: COMMONS NORMALS: normal inspection of the chest and normal palpation of entire chest wall Resp: COMMON NORMALS: normal respiratory effort, No retractions, No use of accessory muscles and clear to auscultation bilaterally AUSCULTATION: clear to auscultation bilaterally Cardio: COMMON NORMALS: regular rate, regular rhythm and No murmurs present (Cardio) RATE: regular rate RHYTHM: regular rhythm GI: COMMON NORMALS: Normal to inspection, nondistended, normoactive bowel sounds present, Soft to palpation, non-tender and no masses PALPATION: Yes Soft to palpation Extremity: COMMON NORMALS: normal to inspection and full ROM Neuro: COMMON NORMALS: patient oriented x3, moves all extremities and no focal motor deficits Psych: COMMON NORMALS: mental status grossly normal, Normal thought process present and cooperative THOUGHT PROCESS: Normal thought process present Skin: COMMON NORMALS: no rashes or lesions noted and no wounds GENERAL SKIN EXAM: no rashes or lesions noted Course Vital Signs: Vital signs: Vital Signs Temperature 98.9 F 10/22/20 20:19 Pulse Rate 80 10/22/20 20:19 Respiratory Rate 16 10/22/20 20:19 Blood Pressure 171/88 10/22/20 20:19 Pulse Oximetry 93 10/22/20 20:19 MDM - URI/Sore Throat MDM Narrative: Medical decision making narrative: Patient presents with cough with likely upper respiratory infection. Cough is gone for a while we will start her on Keflex. She is hypertensive here and given clonidine her blood pressure is improved. Her Covid test is negative. She is well-appearing here and in no distress. She is to follow-up with PCP and return if worsening. Lab Data: Labs: Lab Results 10/22/20 Range/Units 21:32 SARS-CoV-2 Ag (Rap id) Negative (Negative) Imaging Data^: CXR: Attestation: I personally reviewed and interpreted this imaging study as follows: Radiologist's impression: [address] [address] XRay Report Signed Patient: Miriam Krishnan Unit #: [id number] : 1935 Age/Sex: 85 / F ADM Date: 10/22/20 Loc: ER Room/Bed: Attending Dr: Ordering Provider/Ordering MD: Adrienne Manuel MD Date of Service: 10/22/20 Procedure(s): XR chest 1V portable [id number] Accession Number(s): [id number] Report Number: [id number] PROCEDURE INFORMATION: Exam: XR Chest Exam date and time: 10/22/2020 8:56 PM Age: 85 years old Clinical indication: Cough; Prior surgery; Surgery type: Gb; Patient HX: H/o breast CA TECHNIQUE: Imaging protocol: XR of the chest. Views: 1 view. COMPARISON: CR XR chest 1V portable [id number] 10/02/2020 11:03 PM FINDINGS: Lungs: Moderate emphysematous lung changes. No focal pulmonary nodule. No focal pulmonary consolidation. Pleural spaces: Unremarkable. No pleural effusion. No pneumothorax. Heart/Mediastinum: Unremarkable. No cardiomegaly. Vasculature: No vascular dilation. Bones/joints: Unremarkable. XR/XR chest 1V portable [id number] IMPRESSION: 1. No acute pulmonary disease process identified. 2. No significant change from comparison. Discharge Plan Discharge Patient Disposition: Home Clinical Impression: Upper respiratory infection Qualifiers: URI type: unspecified URI Qualified Code(s): J06.9 - Acute upper respiratory infection, unspecified Condition: Stable Prescriptions: New cephalexin 500 mg capsule 500 mg PO TID 7 Days Qty: 21 RF: 0 No Action meclizine 25 mg tablet 25 mg PO BID RF: 0 metoprolol succinate [Toprol XL] 200 mg tablet extended release 24 hr 200 mg PO DAILY RF: 0 latanoprost [Xalatan] 0.005 % drops 1 drop ophthalmic (eye) DAILY RF: 0 potassium chloride 20 mEq tablet extended release 20 meq PO BID RF: 0 lisinopril-hydrochlorothiazide 20-12.5 mg tablet 1 tab PO DAILY RF: 0 anastrozole 1 mg tablet 1 mg PO DAILY RF: 0 Iron (ferrous sulfate) 325 mg (65 mg iron) Tablet 325 mg PO DAILY RF: 0 Ocuvite Adult 50 Plus 250-5-1 mg Capsule 1 cap PO DAILY RF: 0 Discharge Orders: Discharge ED (Routine); Ordered 10/22/20 Ordered By: Adrienne Manuel Referrals: Eric Blanchard MD [Primary Care Provider] - 1-3 days Discharge Diet: Advance as tolerated Discharge Activity: Resume usual activity Patient Instructions: Upper Respiratory Infection (ED) Coding Level of Care Code ED Bracelet Maker Novelty for Chg Fwd Exam Comprehensive
[2020-10-22 21:53] LABS: SARS Covid-2 Antigen Negative (Negative)
[2020-10-22] MEDS: cloNIDine 0.1 mg Tablet PO (22:25)
[2020-10-22] MEDS: cephALEXin 500 mg Capsule PO (22:25)
[2020-10-22 23:06] VITALS: BP 188/90; PULSE 76; RESP 16; TEMP 36.6; O2SAT 99
== END 2020-10-22 23:08 | disposition home or self-care (01) ==
PROVIDERS: Emergency Provider Emergency Medicine; PCP Family Medicine
DX: J06.9 Acute upper respiratory infection, unspecified (principal); I10 Essential (primary) hypertension; Z85.3 Personal history of malignant neoplasm of breast
CPT/HCPCS: 71045; 71046; 87426; 99283

== ENCOUNTER 2020-12-25 14:50 | Outpatient (CLI) | payer MEDICARE, MEDICAID, SELFPAY ==
--- NOTE | 2020-12-25 14:56 | USCV_ITS ---
Miriam Krishnan Age: 85 Gender: F : 1935 Exam Date: 12/25/2020 15:36 Ordering Phys: Evelyn Gorman RN ENT Technologist: Krupa Nixon Exam Location: [facility] [place] Indication: HEART MURMUR BP: 182 / 101 HR: 70 Rhythm: Sinus Technical Quality: Adequate MEASUREMENTS (Male / Female) Normal Values 2D ECHO LV Diastolic Diameter PLAX 4.0 cm 4.2 - 5.9 / 3.9 - 5.3 cm LV Systolic Diameter PLAX 2.7 cm IVS Diastolic Thickness 1.5 cm 0.6 - 1.0 / 0.6 - 0.9 cm IVS Systolic Thickness 1.9 cm LVPW Diastolic Thickness 1.1 cm 0.6 - 1.0 / 0.6 - 0.9 cm LVPW Systolic Thickness 1.2 cm LVOT Diameter 2.0 cm LV Ejection Fraction 2D Teich 63.7 % LV Ejection Fraction MOD 2C 65.6 % LV Ejection Fraction 2C AL 64.6 % LA Diameter 3.3 cm LA Width 1.9 cm LA Height 2.4 cm RA Width 2.6 cm RA Height 2.9 cm Aorta at Sinotubular Diameter 2.2 cm M-MODE LV Diastolic Diameter MM 3.9 cm 4.2 - 5.9 / 3.9 - 5.3 cm LV Systolic Diameter MM 2.2 cm LV Ejection Fraction MM Teich 76.4 % IVS Diastolic Thickness MM 1.6 cm 0.6 - 1.0 / 0.6 - 0.9 cm IVS Systolic Thickness MM 2.4 cm LVPW Diastolic Thickness MM 1.6 cm 0.6 - 1.0 / 0.6 - 0.9 cm LVPW Systolic Thickness MM 2.3 cm Aortic Annulus Diameter 2.4 cm LA Ao Ratio MM 1.2 MV E Point Septal Separation 0.2 cm DOPPLER AV Peak Velocity 129.0 cm/s LVOT Peak Velocity 97.0 cm/s AV Area Cont Eq vti 2.4 cm squared AV Area Cont Eq pk 2.4 cm squared MV Peak Velocity 140.0 cm/s MV Area PHT 3.7 cm squared Mitral E to A Ratio 0.7 MV E' Velocity 33.0 cm/s Mitral E to MV E' Ratio 9.4 Mitral E to LV E' Lateral Ratio 10.0 Mitral E to LV E' Septal Ratio 8.9 TR Peak Velocity 257.6 cm/s TR Peak Gradient 26.5 mmHg TR Mean Velocity 186.5 cm/s TR Mean Gradient 16.1 mmHg TR Velocity Time Integral 80.0 cm TV Peak E Velocity 56.0 cm/s Right Atrial Pressure 3.0 mmHg Pulmonary Artery Systolic Pressu 29.5 mmHg PV Peak Velocity 119.0 cm/s RV Acceleration Time 0.0 s RV Ejection Time 0.3 s RV AcT/ET 0.1 FINDINGS Left Ventricle Normal left ventricular cavity size. Normal left ventricular systolic function. No regional wall motion abnormalities. Left ventricular ejection fraction is estimated at 55 %. Grade I/IV diastolic dysfunction (abnormal relaxation filling pattern), normal to mildly elevated filling pressures. Right Ventricle The right ventricle is normal in size and function. Right Atrium The right atrium is normal in size. Left Atrium The left atrium is normal in size. Mitral Valve Mildly thickened mitral valve. No mitral valve stenosis. Trace mitral valve regurgitation. Aortic Valve Moderate aortic valve calcification. No aortic valve stenosis. Trace aortic valve regurgitation. Tricuspid Valve Moderate tricuspid valve regurgitation. Pulmonic Valve Structurally normal pulmonic valve without significant stenosis. There is no pulmonic regurgitation. Pericardium Normal pericardium without effusion. Aorta Normal ascending aorta dimension. CONCLUSIONS 1-Normal left ventricular cavity size. Normal left ventricular systolic function. No regional wall motion abnormalities. Left ventricular ejection fraction is estimated at 55 %. Grade I/IV diastolic dysfunction (abnormal relaxation filling pattern), normal to mildly elevated filling pressures. 2-Moderate tricuspid valve regurgitation. 3-No significant valve abnormalities. 4-Pulmonary artery systolic pressure is within normal limits. 5-Right atrial pressure is around 15 mm of mercury. 6-When compared to the prior echocardiogram dated 10 January 2017 there appeared to be moderate tricuspid valve regurgitation now. Jorge Donohue MD (Electronically Signed) Final Date: 25 December 2020 21:11 S
== END 2020-12-25 14:51 | disposition home or self-care (01) ==
LOC: US 14:51
PROVIDERS: PCP Nurse Practitioner Family; Visit Provider Nurse Practitioner Family
DX: I07.1 Rheumatic tricuspid insufficiency (principal); R01.1 Cardiac murmur, unspecified
CPT/HCPCS: 93306

== ENCOUNTER 2021-03-23 08:50 | Outpatient (CLI) | payer MEDICARE, MEDICAID, SELFPAY ==
[2021-03-23 09:24] VITALS: BMI 25.4
--- NOTE | 2021-03-23 09:24 | ECG_ITS ---
[facility] Test Date: 2021-03-23 Pat Name: Miriam Krishnan Department: Room: Gender: Female Entry Analyst: : 1935 Requested By: Jerry Castillo Order Number: [id number] Maury MD: Jerry Castillo M.D. Interpretive Statements NAME OF STUDY: LEXISCAN SESTAMIBI STRESS TEST INDICATION: Chest Pain, PROCEDURE: At the baseline, the EKG revealed normal sinus rhythm with a left bundle branch block. The baseline blood pressure was 147/84 mm Hg with a heart rate of 65 beats/min. Lexiscan was infused over a period of 20 seconds. A total of 0.4 milligrams of Lexiscan was infused. The stress phase was continued for a total of 5 minutes. Heart rate at the end of the stress phase was 78 with a blood pressure 142/81. The EKG at the peak infusion revealed no significant changes. Sestamibi was injected 20 seconds after the Lexiscan infusion. Blood pressure at the end of the recovery phase was 130/82 with a heart rate of 77 per minute. CONCLUSION: 1. The EKG response to Lexiscan infusion is uninterpretable due to baseline changes 2. No LexiScan induced chest pain or cardiac arrhythmia 3. Normal blood pressure and heart rate response 4. Sestamibi/sestamibi perfusion scan pending; see separate report. Electronically Signed On 03-27-2021 0:30:34 CDT by Jerry Castillo M.D. [id number]
--- NOTE | 2021-03-23 09:25 | NMCV_ITS ---
NM sarah perf SPECT r/s* [id number] Miriam Krishnan Age: 85 Gender: F : 1935 Exam Date: 03/23/2021 09:25 Ordering Phys: Jerry Castillo MD ([email or web address]) Technologist: TIANNA Monroy Exam Location: [facility] Indications: SHORTNESS OF BREATH STRESS TEST Please see separate stress test report in [facility] for full findings IMAGE PROTOCOL Rest/Stress 1 Lexiscan Day Radiopharmaceutical Dose (mCi) Administration Site Administered by Rest: Tc-99m 10.9 IV TIANNA Bowden Sestamibi Stress:Tc-99m 32.4 IV TIANNA Bowden Sestamibi Rest: 23-Mar-2021 60 Discovery 630 Stress: 23-Mar-2021 30 Discovery 630 0.4mg Lexiscan. Images obtained in supine and prone position. SPECT RESULTS Technical Quality: Excellent Raw Data Analysis: Normal Image Corrections: No attenuation or motion correction applied Summed Stress Score: 4 Summed Rest Score: 7 Summed Difference Score: 0 PERFUSION FINDINGS E.g. areas of decreased tracer uptake in the LV apex. No significant reversibility was noted in these regions. FUNCTIONAL RESULTS (calculated via Gated SPECT) Stress Image LV EF (%): 84 Stress EDV (mL):69 TID: 0.73 Stress ESV (mL):11 FUNCTIONAL FINDINGS: LV wall motion analysis revealing no gross wall motion abnormalities. IMPRESSIONS 1. Myocardial perfusion imaging revealing patchy areas of persistent decreased tracer uptake in the apical regions, suggestive of myocardial scarring versus attenuation artifact . 2. Normal LV ejection fraction of 84%. 3. Segmental wall motion analysis revealing no gross wall motion abnormalities 4. Normal LV volume No significant coronary ischemia, based on the above findings No similar previous studies are available for comparison Dr Jerry Castillo MD [facility] (Electronically Signed) Final Date: 23 March 2021 21:29 S
[2021-03-23 11:45] VITALS: BP 130/82; PULSE 76
[2021-03-23] MEDS: regadenoson 0.4 Mg/5 ml Syringe IVP (11:45)
== END 2021-03-23 08:51 | disposition home or self-care (01) ==
LOC: CDL 08:52
PROVIDERS: PCP Nurse Practitioner Family; Visit Provider Internal Medicine Cardiovascular Disease
DX: R94.31 Abnormal electrocardiogram [ECG] [EKG] (principal); R06.02 Shortness of breath; R07.9 Chest pain, unspecified
CPT/HCPCS: 78452; 93017; A9500; J2785

== ENCOUNTER 2021-05-27 13:09 | Outpatient (CLI) | payer MEDICARE, MEDICAID, SELFPAY ==
--- NOTE | 2021-05-27 14:14 | ONC FU_ITS ---
Dr. Asif Patient Follow-Up Note Patient: Miriam Krishnan Unit #: [id number]: 1935 Dicatated By: Sarath Asif M.D.Date of Visit:May 27, 2021 Onc Med Follow-up/Prog Note Chief Complaint: Breast cancer. History of Present Illness: This is an 85 year-old woman with grade I invasive lobular carcinoma of the left breast, stage IA (T2, N0, M0), ER/ME positive and HER-2/yasir negative. She had been followed for some architectural distortion in the superior left breast which was thought to most likely be benign. However, a six-month follow-up ultrasound the left breast in October 2015 showed a hypoechoic focus in the 9:00 position of the left breast and a similar focus in the 10:00 position which were felt to be more suspicious, and biopsy was recommended. She then underwent ultrasound-guided needle biopsy on 11/28/2015. Pathology showed dense fibrous parenchyma with scattered foci of LCIS admixed with small foci of invasive lobular carcinoma. The best prognosis profile showed the tumor to be ER positive at 94% and ME positive at 9%. The Ki-67 was intermediate at 15%. It was negative for overexpression of HER-2/yasir, 2+ by IHC with amplification ratio by FISH of 1.2 with 1.9 HER-2 copies per cell. On 12/11/2015 she underwent left breast lumpectomy. Pathology showed a tumor comprised of both lobular carcinoma in situ and grade I invasive lobular carcinoma. The invasive component measured 2.4 cm in greatest dimension. There was invasive carcinoma noted extending to the anterior, inferior, and medial margins. On 01/01/2016 she underwent reexcision lumpectomy with sentinel left axillary lymph node biopsy. There was no residual tumor identified in the reexcision specimen. There was no involvement noted in 3 axillary sentinel lymph nodes. I had seen her initially on 01/23/2016. In reviewing her medications, it was noted that she had been taking raloxifene. It took her some time to remember why, but eventually she did recall having participated in the STAR trial. To my recollection this was a comparison of raloxifene and tamoxifen for breast cancer prevention. When the study concluded, she learned that she had been on the tamoxifen arm, but she then developed some symptoms when she stopped taking it, and at that point Dr. Naidu had put her on raloxifene. I did have her stop taking it. She had further evaluation with Oncotype DX. It showed a recurrence of 20 corresponding to a 13% risk of distant recurrence at 10 years with hormonal therapy alone. She declined chemotherapy. She was given radiation to the left breast, which she completed on 04/05/2016 to a total dose of 6,000 cGy. Adjuvant hormonal therapy with anastrozole 1 mg daily began in May 2016. Her baseline bone density on 05/24/2016 was normal. Her other medical illnesses include hypertension, degenerative arthritis, glaucoma, and macular degeneration. On 01/07/2020 she underwent right total knee arthroplasty for degenerative arthritis. She had no complications with the surgery. She had smoked in the past, but only for about 5 years. She quit at age 35. INTERIM HISTORY: During her subsequent follow-up she had tolerated the anastrozole without significant adverse effects. Her repeat DEXA scan on 05/25/2018 showed normal bone mineralization with T score 2.4 in the lumbar spine, -0.2 in the left femoral neck, and -0.2 in the right femoral neck. As of her follow-up visit in August 2020 she appeared stable clinically. She continued adjuvant hormonal therapy with anastrozole 1 mg daily. She is seen for a scheduled visit. She says she has been feeling fine. She has good energy and she has continued her normal activities. ECOG score is 0. Her appetite is good. She has no fever, night sweats, or hot flashes. She has not had sore mouth or throat. She does not complain of cough, and she has not been having shortness of breath or chest pain. She has no GI complaints. She has bladder incontinence. She has no significant joint or bone pain. She does not complain of headache or dizziness, and she has no focal neurologic symptoms. Medications: Alphagan P 1 drop(s) Solution Ophthalmic b.i.d., Anastrozole 1 (1 mg) Tablet Oral daily, FLUoxetine HCl 1 Capsule (of 10 mg) Oral daily, Latanoprost 1 drop(s) Solution Ophthalmic daily, Lisinopril-Hydrochlorothiazide 1.5 Tablet (of 20-12.5 mg) Oral daily, Meclizine HCl 1 Tablet (of 25 mg) Oral daily, Metoprolol Succinate ER 1 Tablet (of 200 mg) Tablet SR 24 HR Oral daily, Potassium Chloride Leisa ER 2 Tablet (of 20 meq) Tablet, controlled release Oral daily, PreserVision AREDS 2 1 Capsule Oral daily Allergies: No Known Allergies. Vital Signs: Performed on May 27, 2021 13:31 Height - 65.00 in Weight - 148.4 lbs (LOW) BSA - 1.74 sq.m BMI - 24.70 Temperature - 98.0 F (LOW) Pulse - 68 /min Respiration - 18 /min BP - 137/73 mm(hg) O2 Sat - 97 % Pain - 0 Fatigue - 1 Physical Examination: Constitutional - She looks pretty good generally, Eyes - Sclerae nonicteric. Conjunctivae clear, ENMT - No lesions noted in the oral cavity, Hematologic/Lymphatic - No cervical, clavicular, or axillary adenopathy, Respiratory - Lungs are clear with good air movement bilaterally, Cardiovascular - Heart rhythm is regular. There is no murmur, gallop, or rub noted, Abdomen - Soft. Liver and spleen are not enlarged. There is no abdominal mass or ascites noted and there is no inguinal adenopathy, Extremities - No edema, Neurologic - No focal neurologic deficits noted. Problem List: 1. Grade I invasive lobular carcinoma of the left breast, stage IA (T2, N0, M0), ER/ME positive and HER-2/yasir negative. She was low risk by Oncotype DX. 2. Hypertension. 3. Degenerative arthritis. 4. Macular degeneration. 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 There was also a component of lobular carcinoma in situ. Her treatment included lumpectomy followed by reexcision lumpectomy and sentinel left axillary lymph node biopsy on 01/01/2016. Her Oncotype DX showed a recurrence score of 20 corresponding to a 13% risk of distant recurrence at 10 years with adjuvant hormonal therapy. She declined chemotherapy. She was given radiation to the left breast, completed on 04/05/2016 to a total dose of 6000 cGy. Adjuvant hormonal therapy with anastrozole 1 mg daily began in May 2016. Her baseline bone density was normal. During follow-up she has tolerated the anastrozole with no significant adverse effects. Overall, she appears to be doing very well clinically with no evidence of recurrence of the breast cancer. She continues adjuvant hormonal therapy with anastrozole 1 mg daily. I will see her again in May, at which point she will have completed 5 years of adjuvant therapy. Overall she has been doing well clinically. She has now completed 5 years of adjuvant hormonal therapy with no evidence of recurrence of the breast cancer. We discussed the possibility of stopping her adjuvant therapy now versus continuing anastrozole for 10 years of treatment. Since she had a T2 primary tumor and an intermediate risk Oncotype score, I think it would be reasonable to at least consider extended therapy. As such, I will request a breast cancer index study, and if that shows higher risk for late recurrence and sensitivity to hormonal therapy, she will be given the option to continue anastrozole for another 5 years. Signed By: Sarath Asif M.D. <<Signature on File>>
== END 2021-05-27 13:10 | disposition home or self-care (01) ==
PROVIDERS: PCP Nurse Practitioner Family; Visit Provider Internal Medicine Medical Oncology
DX: C50.812 Malignant neoplasm of overlapping sites of left female breast (principal); Z17.0 Estrogen receptor positive status [ER+]; Z90.12 Acquired absence of left breast and nipple; I10 Essential (primary) hypertension; M19.90 Unspecified osteoarthritis, unspecified site; H35.30 Unspecified macular degeneration; Z79.818 Long term (current) use of other agents affecting estrogen receptors and estrogen levels; Z92.21 Personal history of antineoplastic chemotherapy; Z92.3 Personal history of irradiation
CPT/HCPCS: 99214

== ENCOUNTER 2021-10-27 08:49 | Oncology outpatient (recurring) (ONCR) | payer MEDICARE, MEDICAID, SELFPAY ==
--- NOTE | 2021-10-27 09:05 | MM_ITS ---
WS: [id number] DIAGNOSTIC BILATERAL DIGITAL BREAST TOMOSYNTHESIS MAMMOGRAPHY WITH CAD HISTORY: HX OF BREAST CA COMPARISON: 09/15/2020, 08/27/2019 and 08/24/2018 TECHNIQUE: Bilateral craniocaudad, mediolateral oblique, and mediolateral views are submitted with to mosynthesis and SM. Computer aided detection utilized. Breast composition: The breasts are extremely dense, which lowers the sensitivity of mammography. The re is significant volume loss and distortion of the LEFT breast. There is architectural distortion wi th retraction. Very similar appearance to the prior study from 08/24/2018. There is a central nodule in the distortion which was also present. Numerous calcifications throughout the RIGHT breast. No disto [place]tion. MM/[place] [id number] IMPRESSION: BI-RADS: 2-Benign FOLLOW UP: 1 Year Follow-up
== END 2021-11-17 23:59 | disposition home or self-care (01) ==
LOC: ONCMED 08:54 → RAD 12-16 13:10
PROVIDERS: PCP Nurse Practitioner Family; Visit Provider Internal Medicine Medical Oncology
DX: Z85.3 Personal history of malignant neoplasm of breast (principal)
CPT/HCPCS: 77062

== ENCOUNTER 2022-01-31 11:18 | Emergency (ER) | payer MEDICARE, MEDICAID, SELFPAY ==
[2022-01-31 11:23] VITALS: BP 143/81; PULSE 63; RESP 16; TEMP 36.6; O2SAT 95; BMI 22.9
--- NOTE | 2022-01-31 11:29 | ED_ITS ---
HPI - General Adult General: Chief complaint: Fall Stated complaint: Cut on her leg Time Seen by Provider: 01/31/22 11:28 History of Present Illness: Patient is an 86-year-old female who presents emergency room with complaints of left anterior chapman skin tear and superficial wound for last 2 days. Patient was climbing a stair around 12 PM 2 days ago when she scraped her anterior chapman. Patient denies any head injury, LOC or other injuries. Patient has been applying Neosporin to the site. Patient is on any anticoagulation. Patient does not remember her last tetanus shot. Family is concerned about wound management brought patient to the emergency room. Patient has been able to bear weight on the affected extremity. Onset:2 days ago Duration:ongoing Location:home Severity:mild Associated symptoms: Deny chest pain, dyspnea, nausea, palpitations or vomiting Review of Systems Const: Denies: fever(s) or chills Eyes: Denies: change in vision ENMT: Denies: mouth pain Card: Denies: chest pain or palpitations Resp: Denies: dyspnea or non-productive cough GI: Denies: abdominal pain, nausea, vomiting or diarrhea : Denies: dysuria Musc: Denies: extremity pain Skin/Breast: Reports: new lesions (+L anterior chapman wound with skin tag ) Neuro: Denies: weakness in extremities Psych: Reports: other (Normal mood) Mauricio/Lymph: Denies: easy bruising PFSH ED PFSH: Medical History CHF (congestive heart failure) Essential hypertension GERD (gastroesophageal reflux disease) History of breast cancer Hx of type 2 diabetes mellitus Hypertension Macular degeneration Tricuspid valve regurgitation Surgical History History of bladder repair surgery History of cholecystectomy History of total right knee replacement Hx of appendectomy Hx of cataract extraction Hx of hysterectomy Hx of left mastectomy Hx of tonsillectomy Family History Mother CAD (coronary artery disease) Cancer Father Cancer Denies family history of Diabetes Clotting disorder Dementia Chronic kidney disease (CKD) Suicide Anesthesia complication Bleeding disorder Lung disease Stroke Social History Alcohol intake: never Female Reproductive History: Date of last menstrual period: 06/20/74 Physical Exam Const: COMMON NORMALS: alert HENMT: COMMON NORMALS: atraumatic HEAD & SCALP: atraumatic MOUTH: moist mucous membranes not abnormal Eye: COMMON NORMALS: EOMs intact bilaterally and conjunctivae normal CONJUNCTIVA: Yes conjunctivae normal Neck/C-Spine: COMMON NORMALS: full ROM and supple Resp: COMMON NORMALS: normal respiratory effort and clear to auscultation bilaterally AUSCULTATION: clear to auscultation bilaterally Cardio: COMMON NORMALS: regular rate RATE: regular rate GI: COMMON NORMALS: Soft to palpation and non-tender PALPATION: Yes Soft to palpation Extremity: COMMON NORMALS: full ROM OTHER: +L anterior chapman superficial wound measuring 5x 7.5 cm with granulation changes, no drainage or surround erythema Neuro: SENSORIUM/ORIENTATION: Yes alert MOTOR EXAM: No Abnormal motor strength present and Other motor observations present (no focal motor deficits) Psych: COMMON NORMALS: speech normal SPEECH: Yes normal speech MOOD & AFFECT: Yes euthymic mood Course Vital Signs: Vital signs: Vital Signs Temperature 97.9 F 01/31/22 11:23 Pulse Rate 63 01/31/22 11:23 Respiratory Rate 16 01/31/22 11:23 Blood Pressure 143/81 01/31/22 11:23 Pulse Oximetry 95 01/31/22 11:23 Oxygen Delivery Me thod 01/31/22 11:23 MDM - General Adult Medical Decision Making 86-year-old female presenting to the emergency room with left anterior chapman superficial wound with skin tag. On exam, patient has a 5 cm x 7.5 cm anterior chapman superficial wound well granulating. Patient did not does not have any signs of infection currently. Patient is encouraged to use Neosporin with gauze daily. Patient received Tdap in the emergency room. X-ray of the left tib-fib is negative for any acute fractures. Disposition: Discharge. Patient counseled regarding diagnostic impression, treatment plan. Patient given ED strict return precautions to return for continuation, worsening, or development of new symptoms. Instructed to f/u w/ PCP regarding symptoms today. Patient verbalized understanding. Lab Data Radiology Impressions Tibia/Fibula X-Ray 01/31/22 11:28 IMPRESSION: No acute findings. Imaging Data Other Imaging: Radiologist's impression: [address] [address] XRay Report Signed Patient: Miriam Krishnan Unit #: [id number] : 1935 Age/Sex: 86 / F ADM Date: 01/31/22 Loc: ER Room/Bed: Attending Dr: Ordering Provider/Ordering MD: Christy Adams MD Date of Service: 01/31/22 Procedure(s): XR tibia fibula LT 2V 68813 Accession Number(s): [id number] Report Number: [id number] PROCEDURE INFORMATION: Exam: XR Left Tibia and Fibula Exam date and time: 01/31/2022 11:42 AM Age: 86 years old Clinical indication: Injury or trauma; Fall; Blunt trauma; Lower leg; Left TECHNIQUE: Imaging protocol: Radiologic exam of the Left tibia and fibula. Views: 2 views. COMPARISON: No relevant prior studies available. FINDINGS: Bones/joints: Normal. Soft tissues: Normal. XR/XR tibia fibula LT 2V 00952 IMPRESSION: No acute findings. ? Dictated By: Jorge Stein Signed By: Joreg Stein Signed Date/Time: 01/31/221213 DD/ 1142 Discharge Plan Discharge Patient Disposition: Home Clinical Impression: Skin tear, Superficial wound Condition: Stable Prescriptions: No Action meclizine 25 mg tablet 25 mg PO BID metoprolol succinate [Toprol XL] 200 mg tablet extended release 24 hr 200 mg PO DAILY latanoprost [Xalatan] 0.005 % drops 1 drop ophthalmic (eye) DAILY potassium chloride 20 mEq tablet extended release 20 meq PO BID lisinopril-hydrochlorothiazide 20-12.5 mg tablet 1 tab PO DAILY fluoxetine 10 mg capsule 10 mg PO DAILY metformin 500 mg tablet 500 mg PO DAILY amlodipine 5 mg tablet 5 mg PO DAILY Qty: 30 5RF Rx Instructions: Dose increased anastrozole 1 mg tablet 1 mg PO DAILY Ocuvite Adult 50 Plus 250-5-1 mg Capsule 1 cap PO DAILY Discharge Orders: Discharge ED (Routine); Ordered 01/31/22 Ordered By: Christy Adams Referrals: Evelyn Gorman FNP [Primary Care Provider] - Discharge Diet: Advance as tolerated Discharge Activity: Increase activity as tolerated Patient Instructions: Abrasion (ED) Activity Restrictions/Additional Instructions: Come back if you have any new or concerning issues. Please follow up with Dr. Blanchard in 4-5 days for recheck. Please apply vaseline or neomycin ointment with gauze. Coding Level of Care Code ED Environmental Construction Engineer for Kurtis Fwd Exam Comprehensive
[2022-01-31] MEDS: acetaminophen 500 mg Tablet PO (11:52)
[2022-01-31] MEDS: tetanus-dipt-pertussis 0.5 mL SDV IM (11:54)
== END 2022-01-31 12:17 | disposition home or self-care (01) ==
PROVIDERS: Emergency Provider Emergency Medicine; PCP Nurse Practitioner Family
DX: S81.812A Laceration without foreign body, left lower leg, initial encounter (principal); X58.XXXA Exposure to other specified factors, initial encounter; I11.0 Hypertensive heart disease with heart failure; I50.9 Heart failure, unspecified; E11.9 Type 2 diabetes mellitus without complications; H35.30 Unspecified macular degeneration; Z85.3 Personal history of malignant neoplasm of breast; Z23 Encounter for immunization
CPT/HCPCS: 73590; 90471; 90715; 99283

== ENCOUNTER → 2022-02-24 10:44 | Outpatient (BNVA) | payer MEDICARE, MEDICAID, SELFPAY | PROVIDERS: PCP Family Medicine; Visit Provider Family Medicine | DX: I10 Essential (primary) hypertension (principal); I50.30 Unspecified diastolic (congestive) heart failure; I50.9 Heart failure, unspecified; R29.6 Repeated falls; Z86.39 Personal history of other endocrine, nutritional and metabolic disease | CPT/HCPCS: 80053; 80061; 83036; 85025 ==

== ENCOUNTER 2022-03-10 13:58 | Outpatient (RCR) | payer MEDICARE, MEDICAID, SELFPAY | END 2022-03-19 23:59 | disposition home or self-care (01) | LOC: SPT 13:58 | PROVIDERS: PCP Family Medicine; Visit Provider Family Medicine | DX: R29.6 Repeated falls (principal) | CPT/HCPCS: 97110; 97112; 97162 ==

== ENCOUNTER 2022-03-20 06:00 | Outpatient (RCR) | payer MEDICARE, SELFPAY | END 2022-04-19 23:59 | disposition home or self-care (01) | LOC: SPT 06:00 | PROVIDERS: PCP Family Medicine; Visit Provider Family Medicine | DX: R29.6 Repeated falls (principal) | CPT/HCPCS: 97110; 97112 ==

== ENCOUNTER 2022-04-20 06:00 | Outpatient (RCR) | payer MEDICARE, SELFPAY | END 2022-04-29 14:19 | disposition home or self-care (01) | LOC: SPT 06:00 | PROVIDERS: PCP Family Medicine; Visit Provider Family Medicine | DX: R29.6 Repeated falls (principal) | CPT/HCPCS: 97110; 97112 ==

== ENCOUNTER → 2022-08-24 12:40 | Outpatient (BNVA) | payer MEDICARE, MEDICAID, SELFPAY | PROVIDERS: PCP Family Medicine; Visit Provider Family Medicine | DX: R29.6 Repeated falls (principal); I50.30 Unspecified diastolic (congestive) heart failure; I10 Essential (primary) hypertension; Z86.39 Personal history of other endocrine, nutritional and metabolic disease; I50.9 Heart failure, unspecified; R53.83 Other fatigue | CPT/HCPCS: 80053; 80061; 83036 ==

== ENCOUNTER 2022-11-02 09:41 | Outpatient (CLI) | payer MEDICARE, MEDICAID, SELFPAY ==
--- NOTE | 2022-11-02 10:32 | MM_ITS ---
WS: [id number] DIAGNOSTIC BILATERAL DIGITAL BREAST TOMOSYNTHESIS MAMMOGRAPHY WITH CAD HISTORY: Annual exam. History of breast cancer. COMPARISON: 10/27/2021, 09/15/2020 TECHNIQUE: Bilateral craniocaudad, mediolateral oblique, and mediolateral views are submitted with to mosynthesis and SM. Computer aided detection utilized. Breast composition: The breasts are extremely dense, which lowers the sensitivity of mammography. Mar ked distortion of the LEFT breast due to prior surgery. Calcifications throughout the RIGHT breast. There are no suspicious areas of new distortion or cluste red suspicious calcifications. MM/[place] [id number] IMPRESSION: BI-RADS: 2-Benign FOLLOW UP: 1 Year Follow-up
== END 2022-11-02 09:42 | disposition home or self-care (01) ==
PROVIDERS: PCP Family Medicine; Visit Provider Family Medicine
DX: Z85.3 Personal history of malignant neoplasm of breast (principal)
CPT/HCPCS: 77062; 77066; G0279

== ENCOUNTER → 2022-11-23 11:20 | Outpatient (BNVA) | payer MEDICARE, MEDICAID, SELFPAY | PROVIDERS: PCP Family Medicine; Visit Provider Family Medicine | DX: I50.9 Heart failure, unspecified (principal); I10 Essential (primary) hypertension; L57.0 Actinic keratosis; I50.30 Unspecified diastolic (congestive) heart failure; R53.83 Other fatigue; Z86.39 Personal history of other endocrine, nutritional and metabolic disease | CPT/HCPCS: 80053; 83036; 83880 ==

== ENCOUNTER → 2023-03-02 11:47 | Outpatient (BNVA) | payer MEDICARE, MEDICAID, SELFPAY | PROVIDERS: PCP Family Medicine; Visit Provider Family Medicine | DX: I50.9 Heart failure, unspecified (principal); I10 Essential (primary) hypertension; Z86.39 Personal history of other endocrine, nutritional and metabolic disease | CPT/HCPCS: 80053; 83036; 83880 ==

== ENCOUNTER 2023-05-25 13:20 | Emergency (ER) | payer MEDICARE, MEDICAID, SELFPAY ==
[2023-05-25 13:21] VITALS: BMI 23.9
[2023-05-25 13:24] VITALS: BP 149/83; PULSE 86; RESP 16; TEMP 36.5; O2SAT 89
--- NOTE | 2023-05-25 14:06 | XR_ITS ---
WS: [id number] Portable AP upright chest, 05/25/2023 Clinical Data: Cough, congestion Comparison: Portable chest, 10/22/2020 Findings: No nodules, masses or effusions are seen. The heart is normal. The pulmonary vascularity is not increased. No pneumonia or pneumothorax is seen. The diaphragms are flattened. The aortic arch s hows mild tortuosity. Impression: Atherosclerosis and hyperinflation.
--- NOTE | 2023-05-25 14:06 | ED_ITS ---
HPI - Nausea/Vomiting/Diarrhea 2 General: Chief complaint: Nausea/Vomiting/Diarrhea Stated complaint: N/V/D Time Seen by Provider: 05/25/23 13:21 History of Present Illness: 87-year-old female presents emergency de partment with complaints that she is not feeling well for the previous couple days. She states that she has had a nonproductive cough as well as several episodes of diarrhea. She states she does have a history of pneumonia many years ago but has been doing fine since that time. She does endorses increased fatigue and malaise. Associated symtoms: Reports fatigue and malaise Review of Systems 2 General: Reports: 10 or more systems reviewed and unremarkable except in HPI and below Const: Reports: fatigue and malaise Resp: Reports: non-productive cough GI: Reports: diarrhea PFSH ED 2 PFSH: Medical History Actinic keratosis CHF (congestive heart failure) Essential hypertension GERD (gastroesophageal reflux disease) History of breast cancer Hx of type 2 diabetes mellitus Hypertension Macular degeneration Tricuspid valve regurgitation Surgical History History of bladder repair surgery History of cholecystectomy History of total right knee replacement Hx of appendectomy Hx of cataract extraction Hx of hysterectomy Hx of left mastectomy Hx of tonsillectomy Family History Mother CAD (coronary artery disease) Cancer Father Cancer Denies family history of Diabetes Clotting disorder Dementia Chronic kidney disease (CKD) Suicide Anesthesia complication Bleeding disorder Lung disease Stroke Social History Alcohol intake: never Substance/Drug Use: never Physical Exam 2 Narrative: EXAM NARRATIVE: Constitutional: the patient appears well nourished and with normal development. Vital signs reviewed as documented. HENMT: Normocephalic, atraumatic. Extermal ears with normal appearance without drainage. Nose without drainage, normal appearance. Mucus membranes moist. Neck is supple, No jugular venous distension, trachea is midline, no appreciable carotid bruits. No lymphadenopathy. No meningeal signs. Flexion, extension and lateral rotation is without pain. Eyes: Pupils are equal, round, reactive to light and accommodation. No scleral icterus. Extra-ocular movement are intact. Thorax is symmetrical and with equal rise and fall with respirations. Resp: Lungs are clear to auscultation. No wheezes, rales, crackles or ronchi at present. Cardio: Regular rate and rhythm. Positive S1, S2. No appreciable murmurs, rubs or gallops. GI: Abdominal exam reveals normal bowel sounds to all quadrants. No organomegaly. No obvious palpable masses noted. No hepatomegally appreciated. Soft, nontender to palpation. Extremity: Extremities are non-edematous and both femoral and pedal pulses are 2+ and equal bilaterally. Moves all extremities well, sensation in all extremities. Neuro: Alert and oriented x4, person, place, time and situation. Cranial nerves II through XII are grossly intact, there is no focal neurological deficits that I can appreciate at present. Motor strength in the upper and lower extremities are equal and bilateral 5/5. Psych: Cooperative, calm, normal thought process, appropriate judgment. Skin: No lesions, rashes. No gross abnormalities noted. Back: Symmetrical, no obvious deformity, No CVA tenderness Course 2 Vital Signs: Vital signs: Vital Signs Temperature 97.7 F 05/25/23 13:24 Pulse Rate 78 05/25/23 16:03 Respiratory Rate 18 05/25/23 16:03 Blood Pressure 140/72 05/25/23 16:03 Pulse Oximetry 96 05/25/23 16:03 Oxygen Delivery Me thod Room Air 05/25/23 16:03 MDM - Nausea/Vomiting/Diarrhea Medical Decision Making Physical exam completed and documented, I will obtain a CBC, CMP cardiac enzymes as well as a chest x-ray. Medical Records I reviewed the patient's medical records. Lab Data I reviewed the patient's lab results. 05/25/23 14:25 05/25/23 14:25 Laboratory Results WBC 11.58 10^3/uL (3.29-11.43) H 05/25/23 14: RBC 4.00 10^6/uL (3.85-5.65) 05/25/23 14: Hgb 13.00 g/dL (11.27-16.99) 05/25/23 14:25 Hct 39.2 % (36-47) 05/25/23 14: MCV 98.0 fl (85-98) 05/25/23 14:25 MCH 32.5 pg (27-33) 05/25/23 14:25 MCHC 33.2 g/dL (30-55) 05/25/23 14:25 RDW 12.1 % (12.1-15.1) 05/25/23 14:25 Plt Count 199 10^3/cmm (157-399) 05/25/23 14:25 MPV 9.6 fL (7.4-10.4) 05/25/23 14:25 Neut % (Auto) 79.7 % 05/25/23 14:25 Lymph % (Auto) 13.2 % 05/25/23 14:25 [place] % (Auto) 6.4 % 05/25/23 14:25 Eos % (Auto) 0.1 % 05/25/23 14:25 Baso % (Auto) 0.3 % 05/25/23 14:25 Neut # (Auto) 9.24 10^3/uL (1.8-7.7) H 05/25/23 14:25 Lymph # (Auto) 1.5 10^3/uL (0.8-4.8) 05/25/23 14:25 [place] # (Auto) 0.7 10^3/uL (0.2-0.9) 05/25/23 14:25 Eos # (Auto) 0.0 10^3/uL (0.0-0.8) 05/25/23 14:25 Baso # (Auto) 0.0 10^3/uL (0.0-0.1) 05/25/23 14:25 Nucleated RBC % (auto) 0 % 05/25/23 14:25 Nucleated RBCs # 0.0 /100WBC 05/25/23 14:25 Sodium 142 mmol/L (136-145) 05/25/23 14:25 Potassium 3.7 mmol/L (3.5-5.1) 05/25/23 14:25 Chloride 103 mmol/L (98-107) 05/25/23 14:25 Carbon Dioxide 29 mmol/L (22-29) 05/25/23 14:25 Anion Gap 13.7 (5-19) 05/25/23 14:25 BUN 16 mg/dL (8-23) 05/25/23 14:25 Creatinine 0.7 mg/dL (0.5-0.9) 05/25/23 14:25 GFR Calculation Not Reportable 05/25/23 14:25 Glucose 188 mg/dL (65-115) H 05/25/23 14:25 Calculated Osmolality 300 mOsm/kg (285-295) H 05/25/23 14:25 Calcium 8.9 mg/dL (8.5-10.5) 05/25/23 14:25 Total Bilirubin 0.7 mg/dL (0.15-1.2) 05/25/23 14:25 AST 19 U/L (0-32) 05/25/23 14:25 ALT 10 U/L (0-33) 05/25/23 14:25 Alkaline Phosphatase 74 U/L (35-105) 05/25/23 14:25 Total Protein 6.5 g/dL (6.6-8.7) L 05/25/23 14:25 Albumin 3.9 g/dL (3.5-5.2) 05/25/23 14:25 Globulin 2.6 g/dL (1.3-4.6) 05/25/23 14:25 Urine Color Yellow (Yellow) 05/25/23 15:02 Urine Appearance Clear (CLEAR) 05/25/23 15:02 Urine pH 6 (5-7) 05/25/23 15:02 Ur Specific [place] 1.015 (1.005-1.030) 05/25/23 15:02 Urine Protein Neg (Negative) 05/25/23 15:02 Urine Glucose (UA) 1+ (Normal) H 05/25/23 15:02 Urine Ketones Negative (Negative) 05/25/23 15:02 Urine Blood Neg (Negative) 05/25/23 15:02 Urine Nitrate Negative (Negative) 05/25/23 15:02 Urine Bilirubin Neg (Negative) 05/25/23 15:02 Urine Urobilinogen Neg mg/dL (Negative) 05/25/23 15:02 Ur Leukocyte Esterase Negative (Negative) 05/25/23 15:02 Influenza Type A Ag negative (Negative) 05/25/23 12:16 Influenza Type B Ag negative (Negative) 05/25/23 12:16 SARS-CoV-2 Ag (Rapid) negative (Negative) 05/25/23 12:16 XR interpretation done by ED provider, pending radiology final review ED provider radiology interpretation(s): I reviewed the patient's previous radiographic chest examination as well as the chest x-ray that was obtained today I am concerned that there is a pneumonitis/early pneumonia to the right middle lobe. Discharge Plan Discharge Patient Disposition: Home Clinical Impression: Pneumonia Qualifiers: Pneumonia type: due to unspecified organism Laterality: right Lung location: m iddle lobe of lung Qualified Code(s): J18.9 - Pneumonia, unspecified organism Cough Qualifiers: Cough type: acute Qualified Code(s): R05.1 - Acute cough Diarrhea Qualifiers: Diarrhea type: unspecified type Qualified Code(s): R19.7 - Diarrhea, unspecified Condition: Stable Prescriptions: New guaifenesin 1,200 mg tablet extended release 12hr 1,200 mg PO BID Qty: 30 0RF benzonatate 100 mg capsule 100 mg PO TID PRN (Reason: cough) Qty: 30 0RF loperamide [Imodium A-D] 2 mg tablet 1 mg PO Q6H Qty: 10 0RF azithromycin [Zithromax TRI-DUNG] 500 mg tablet See Rx Instructions .ROUTE .COMPLEX Qty: 3 0RF Rx Instructions: For 250 mg dose pack: take 500 mg today (day 1), then 250 mg for 4 days (days 2-5) No Action latanoprost [Xalatan] 0.005 % drops 1 drop ophthalmic (eye) QPM Alphagan P 0.1 % drops 1 drp ophthalmic (eye) BID Ocuvite Adult 50 Plus 250 mg (90 mg-160 mg) Capsule 1 cap PO BID lisinopril-hydrochlorothiazide 20-12.5 mg tablet 1 tab PO QAM metoprolol succinate 200 mg tablet extended release 24 hr 200 mg PO QAM amlodipine 5 mg tablet 5 mg PO BID glimepiride 2 mg tablet 2 mg PO QAM potassium chloride 20 mEq tablet,ER particles/crystals 20 meq PO BID meclizine 25 mg tablet 25 mg PO BID fluoxetine 20 mg capsule 20 mg PO QAM Discharge Orders: Discharge ED (Routine); Ordered 05/25/23 Ordered By: Yuan Billingsley Referrals: Eric Blanchard MD [Primary Care Provider] - Discharge Diet: Advance as tolerated Discharge Activity: Resume usual activity Patient Instructions: Opioid Safety, Pain Management Activity Restrictions/Additional Instructions: Activity Restrictions/Additional Instructions: [facility] for your healthcare needs today. Please realize that you were seen in the Emergency Department and that we are providing you with an emergency medical screening exam and this may not be a complete and all inclusive of all the testing and or medical work-up that you may need to determine your ailment or severity of your illness. It is very important that you follow-up as instructed with your Primary care provider or Specialist for additional evaluation and to discuss your medical treatment plan. You may return to the Emergency Department should you have concerns or if your condition changes or worsens in any way. Coding Level of Care Code ED Commercial Fisherman for Kurtis Arambula
[2023-05-25 14:41] LABS: Basophils % 0.3 %; Eosinophils % 0.1 %; Hematocrit 39.2 % (36-47); Lymphocytes # 1.5 10^3/uL (0.8-4.8); Lymphocytes % 13.2 %; Mean Corpuscular HGB Conc 33.2 g/dL (30-55); Mean Corpuscular Hemoglobin 32.5 pg (27-33); Mean Platelet Volume 9.6 fL (7.4-10.4); Monocytes # 0.7 10^3/uL (0.2-0.9); Monocytes % 6.4 %; Neutrophils # 9.24 10^3/uL (1.8-7.7); Neutrophils % 79.7 %; Nucleated Red Blood Cells % 0 %; Platelet Count 199 10^3/cmm (157-399); Red Cell Distribution Width 12.1 % (12.1-15.1); White Blood Count 11.58 10^3/uL (3.29-11.43)
[2023-05-25 14:59] LABS: Alanine Aminotransferase 10 U/L (0-33); Albumin Level 3.9 g/dL (3.5-5.2); Alkaline Phosphatase 74 U/L (35-105); Anion Gap 13.7 (5-19); Aspartate Amino Transferase 19 U/L (0-32); Blood Urea Nitrogen 16 mg/dL (8-23); Calcium 8.9 mg/dL (8.5-10.5); Carbon Dioxide 29 mmol/L (22-29); Chloride 103 mmol/L (98-107); Globulin 2.6 g/dL (1.3-4.6); Glucose 188 mg/dL (65-115); Osmolality Calculated 300 mOsm/kg (285-295); Potassium 3.7 mmol/L (3.5-5.1); Sodium 142 mmol/L (136-145); Total Bilirubin 0.7 mg/dL (0.15-1.2); Total Protein 6.5 g/dL (6.6-8.7)
[2023-05-25 15:06] LABS: Add Urine Microscopic? NO; Charge for UA Resulting for Rev
[2023-05-25 15:12] LABS: Bilirubin Urine Neg (Negative); Blood Urine Neg (Negative); Glucose Urine UA 1+ (Normal); Ketones Urine Negative (Negative); Leukocyte Esterase Urine Negative (Negative); Nitrate Urine Negative (Negative); Protein Urine Neg (Negative); Specific Gravity, Urine 1.015 (1.005-1.030); Urine Appearance Clear (CLEAR); Urine Color Yellow (Yellow); Urobilinogen Urine Neg (Negative); pH Urine 6 (5-7)
[2023-05-25 15:29] LABS: Influenza A by IFA negative (Negative); Influenza B by IFA negative (Negative)
[2023-05-25 15:30] LABS: SARS Covid-2 Antigen negative (Negative)
[2023-05-25 15:31] VITALS: BP 140/75; PULSE 77; RESP 16; O2SAT 95
[2023-05-25 16:03] VITALS: BP 140/72; PULSE 78; RESP 18; O2SAT 96
[2023-05-25 16:53] VITALS: BP 130/67; PULSE 73; O2SAT 95
== END 2023-05-25 16:58 | disposition home or self-care (01) ==
PROVIDERS: Emergency Provider Internal Medicine; PCP Family Medicine
DX: J18.9 Pneumonia, unspecified organism (principal); R19.7 Diarrhea, unspecified; Z79.84 Long term (current) use of oral hypoglycemic drugs; Z11.52 Encounter for screening for COVID-19; I11.0 Hypertensive heart disease with heart failure; I50.9 Heart failure, unspecified; E11.9 Type 2 diabetes mellitus without complications; Z85.3 Personal history of malignant neoplasm of breast; H35.30 Unspecified macular degeneration
CPT/HCPCS: 36415; 71045; 80053; 81003; 85025; 87040; 87426; 87804; 99284

== ENCOUNTER 2023-07-18 08:28 | Outpatient (RCR) | payer MEDICARE, SELFPAY | END 2023-07-20 23:59 | disposition home or self-care (01) | LOC: SPT 08:28 | PROVIDERS: PCP Family Medicine; Visit Provider Family Medicine | DX: M17.11 Unilateral primary osteoarthritis, right knee (principal); R29.6 Repeated falls; M62.81 Muscle weakness (generalized) | CPT/HCPCS: 97161 ==

== ENCOUNTER 2023-07-21 06:00 | Outpatient (RCR) | payer MEDICARE, MEDICAID, SELFPAY | END 2023-08-18 23:59 | disposition home or self-care (01) | LOC: SPT 06:00 | PROVIDERS: PCP Family Medicine; Visit Provider Family Medicine | DX: M17.11 Unilateral primary osteoarthritis, right knee (principal); R29.6 Repeated falls | CPT/HCPCS: 97110; 97112; 97530 ==

== ENCOUNTER 2023-07-29 14:43 | Emergency (ER) | payer MEDICARE, MEDICAID, SELFPAY ==
[2023-07-29 14:47] VITALS: BP 128/84; PULSE 85; RESP 18; TEMP 36.6; O2SAT 99
--- NOTE | 2023-07-29 14:50 | ECG_ITS ---
[facility] Test Date: 2023-07-29 Pat Name: Miriam Krishnan Department: Room: Gender: Female Manager Combination: : 1935 Requested By: Eli Pacheco Order Number: [id number] Maury MD: Jon Guzmán M.D. Measurements Intervals [place] Rate: 84 P: 28 IA: 160 QRS: 48 QRSD: 133 T: 55 QT: 405 QTc: 480 Interpretive Statements SINUS RHYTHM LEFT BUNDLE BRANCH BLOCK [120+ ms QRS DURATION, 80+ ms Q/S IN V1/V2, 85+ ms R IN I/aVL/V5/V6] Compared to ECG 12/27/2019 08:53:07 No significant changes Electronically Signed On 07-30-2023 5:56:10 WINDOWS DESKTOP ENGINEER by Jon Guzmán M.D. [id number]
--- NOTE | 2023-07-29 15:01 | ED_ITS ---
HPI - Arrhythmia/Palpitations 2 General: Chief Complaint: Arrhythmia/Palpitations Stated Complaint: Heart palpitations Time Seen by Provider: 07/29/23 14:55 History of Present Illness: 87-year-old female who presents to the e mergency room with palpitations. She has a history of hypertension and diabetes. She has chronic lower extremity swelling. She says she does not have any known coronary artery disease. No A- fib. No anticoagulation. She says she has been having episodes where her heart will flutter in her chest that she can feel it. No chest pain. She says it only last briefly and sitting down and calming down seems to help it. No chest pain. No cough. No shortness of breath. No abdominal pain. No nausea or vomiting. No change in her lower extremity swelling. Review of Systems 2 Narrative: Constitutional symptoms: Negative except as documented in HPI. Skin symptoms: Negative except as documented in HPI. Eye symptoms: Negative except as documented in HPI. ENMT symptoms: Negative except as documented in HPI. Respiratory symptoms: Negative except as documented in HPI. Cardiovascular symptoms: Negative except as documented in HPI. Gastrointestinal symptoms: Negative except as documented in HPI. Genitourinary symptoms: Negative except as documented in HPI. Musculoskeletal symptoms: Negative except as documented in HPI. Neurologic symptoms: Negative except as documented in HPI. Psychiatric symptoms: Negative except as documented in HPI. Endocrine symptoms: Negative except as documented in HPI. PFSH ED 2 PFSH: Medical History Actinic keratosis CHF (congestive heart failure) Tricuspid valve regurgitation Hx of type 2 diabetes mellitus Essential hypertension GERD (gastroesophageal reflux disease) Hypertension Macular degeneration History of breast cancer Surgical History Hx of cataract extraction Hx of appendectomy Hx of left mastectomy History of total right knee replacement Hx of hysterectomy Hx of tonsillectomy History of cholecystectomy History of bladder repair surgery Family History Mother CAD (coronary artery disease) Cancer Father Cancer Denies family history of Diabetes Clotting disorder Dementia Chronic kidney disease (CKD) Suicide Anesthesia complication Bleeding disorder Lung disease Stroke Social History Alcohol intake: never Substance/Drug Use: never Physical Exam 2 Narrative: EXAM NARRATIVE: General: Alert, no acute distress. Skin: Warm, dry. Head: Normocephalic, atraumatic. Neck: Supple, trachea midline. Eye: Extraocular movements are intact. Ears, nose, mouth and throat: mucosa moist. Cardiovascular: Regular, Normal peripheral perfusion. Tibial edema. She says at baseline. Respiratory: Lungs are clear to auscultation, respirations are non-labored, breath sounds are equal, Symmetrical chest wall expansion. Gastrointestinal: Soft, Nontender, Non distended, Normal bowel sounds. Musculoskeletal: Normal ROM, no deformity. Neurological: Alert and oriented to person, place, time, and situation, No focal neurological deficit observed. Psychiatric: Cooperative, appropriate mood & affect. Course 2 Vital Signs: Vital signs: Vital Signs Temperature 98 F 07/29/23 14:47 Pulse Rate 84 07/29/23 18:51 Respiratory Rate 20 H 07/29/23 18:51 Blood Pressure 156/82 07/29/23 16:18 Pulse Oximetry 94 07/29/23 18:51 Oxygen Delivery Me thod Room Air 07/29/23 16:18 MDM - Arrhythmia/Palpitations Medical Decision Making EKG, urinalysis, basic lab work were ordered. Chest x-ray: No acute process. No pneumothorax. No infiltrate. No cardiomegaly. This was reviewed and interpreted by myself the ER physician. EKG: Time 1450 p.m. rate 84 normal sinus rhythm, No ST-T changes, no ectopy, left bundle branch block that was present in the past., This was reviewed and interpreted by myself the ER physician. Lab work is unremarkable. No leukocytosis. Urine is clear. No renal failure. Troponin is negative. Patient has had no dysrhythmias while here in the emergency room. Lab Data 07/29/23 15:13 07/29/23 15:13 Laboratory Results WBC 5.71 10^3/uL (3.29-11.43) 07/29/23 15:13 RBC 4.13 10^6/uL (3.85-5.65) 07/29/23 15:13 Hgb 13.50 g/dL (11.27-16.99) 07/29/23 15:13 Hct 40.6 % (36-47) 07/29/23 15:13 MCV 98.3 fl (85-98) H 07/29/23 15:13 MCH 32.7 pg (27-33) 07/29/23 15:13 MCHC 33.3 g/dL (30-55) 07/29/23 15:13 RDW 12.0 % (12.1-15.1) L 07/29/23 15:13 Plt Count 182 10^3/cmm (157-399) 07/29/23 15:13 MPV 9.5 fL (7.4-10.4) 07/29/23 15:13 Neut % (Auto) 45.0 % 07/29/23 15:13 Lymph % (Auto) 42.2 % 07/29/23 15:13 [place] % (Auto) 10.3 % 07/29/23 15:13 Eos % (Auto) 1.8 % 07/29/23 15:13 Baso % (Auto) 0.5 % 07/29/23 15:13 Neut # (Auto) 2.57 10^3/uL (1.8-7.7) 07/29/23 15:13 Lymph # (Auto) 2.4 10^3/uL (0.8-4.8) 07/29/23 15:13 [place] # (Auto) 0.6 10^3/uL (0.2-0.9) 07/29/23 15:13 Eos # (Auto) 0.1 10^3/uL (0.0-0.8) 07/29/23 15:13 Baso # (Auto) 0.0 10^3/uL (0.0-0.1) 07/29/23 15:13 Nucleated RBC % (auto) 0 % 07/29/23 15:13 Nucleated RBCs # 0.0 /100WBC 07/29/23 15:13 Sodium 144 mmol/L (136-145) 07/29/23 15:13 Potassium 3.8 mmol/L (3.5-5.1) 07/29/23 15:13 Chloride 104 mmol/L (98-107) 07/29/23 15:13 Carbon Dioxide 29 mmol/L (22-29) 07/29/23 15:13 Anion Gap 14.8 (5-19) 07/29/23 15:13 BUN 18 mg/dL (8-23) 07/29/23 15:13 Creatinine 0.9 mg/dL (0.5-0.9) 07/29/23 15:13 GFR Calculation Not Reportable 07/29/23 15:13 Glucose 117 mg/dL (65-115) H 07/29/23 15:13 Calculated Osmolality 301 mOsm/kg (285-295) H 07/29/23 15:13 Calcium 9.2 mg/dL (8.5-10.5) 07/29/23 15:13 Magnesium 1.9 mg/dL (1.7-2.3) 07/29/23 15:13 Total Bilirubin 0.6 mg/dL (0.15-1.2) 07/29/23 15:13 AST 20 U/L (0-32) 07/29/23 15:13 ALT 10 U/L (0-33) 07/29/23 15:13 Alkaline Phosphatase 79 U/L (35-105) 07/29/23 15:13 Troponin T Baseline 15 ng/L (0-10) H 07/29/23 15:13 Total Protein 6.4 g/dL (6.6-8.7) L 07/29/23 15:13 Albumin 4.1 g/dL (3.5-5.2) 07/29/23 15:13 Globulin 2.3 g/dL (1.3-4.6) 07/29/23 15:13 TSH 1.33 uIU/mL (0.27-4.20) 07/29/23 15:13 Urine Color Yellow (Yellow) 07/29/23 17:31 Urine Appearance Clear (CLEAR) 07/29/23 17:31 Urine pH 7 (5-7) 07/29/23 17:31 Ur Specific [place] 1.000 (1.005-1.030) L 07/29/23 17:31 Urine Protein Neg (Negative) 07/29/23 17:31 Urine Glucose (UA) Norm (Normal) 07/29/23 17:31 Urine Ketones Negative (Negative) 07/29/23 17:31 Urine Blood Neg (Negative) 07/29/23 17:31 Urine Nitrate Negative (Negative) 07/29/23 17:31 Urine Bilirubin Neg (Negative) 07/29/23 17:31 Urine Urobilinogen Norm mg/dL (Negative) 07/29/23 17:31 Ur Leukocyte Esterase Negative (Negative) 07/29/23 17:31 Urine RBC 0-4 /hpf (0-2) H 07/29/23 17:31 Urine WBC 0-4 /hpf (0-5) H 07/29/23 17:31 Ur Squamous Epith Cells 0-4 /hpf (0-5) H 07/29/23 17:31 Amorphous Sediment Not Reportable 07/29/23 17:31 Urine Bacteria Trace /hpf (NONE) 07/29/23 17:31 All radiology interpretation(s) finalized by discharge Other Data - Discharged home - Discussed findings and plan with patient. Answered any questions. - All laboratory values were reviewed and interpreted personally by myself, the ER physician - All imaging was reviewed and interpreted personally by myself, the ER physician. - Evaluation and treatment of this problem were appropriate in the emergency setting Discharge Plan Discharge Patient Disposition: Home Clinical Impression: Palpitations Condition: Stable Prescriptions: No Action latanoprost [Xalatan] 0.005 % drops 1 drop ophthalmic (eye) QPM amlodipine 5 mg tablet 5 mg PO DAILY brimonidine [Alphagan P] 0.1 % drops 1 drp ophthalmic (eye) BID Ocuvite Adult 50 Plus 250 mg (90 mg-160 mg) Capsule 1 cap PO BID lisinopril-hydrochlorothiazide 20-12.5 mg tablet 1 tab PO QAM metoprolol succinate 200 mg tablet extended release 24 hr 200 mg PO QAM glimepiride 2 mg tablet 2 mg PO QAM potassium chloride 20 mEq tablet,ER particles/crystals 20 meq PO BID meclizine 25 mg tablet 25 mg PO BID fluoxetine 20 mg capsule 20 mg PO QAM benzonatate 100 mg capsule 100 mg PO TID PRN (Reason: cough) Qty: 30 0RF Prevagen Chewables 1 tab PO DAILY Imodium A-D 2 mg tablet 2 mg PO . DIRECTED PRN (Reason: Diarrhea) Discharge Orders: Discharge ED (Routine); Ordered 07/29/23 Ordered By: Eli Umaña Referrals: Eric Blanchard MD [Primary Care Provider] - (You have been screened and evaluated and felt safe for discharge. Health conditions do change or evolve sometimes and as such it is important that you follow up with your Primary Doctor to be re checked, 3-5 days is a general good time frame for follow up. You are always welcome to return to the ED for re assessment if your symptoms are worsening or you have new concerns) Discharge Diet: Usual diet Discharge Activity: Resume usual activity Patient Instructions: Opioid Safety, Pain Management, Heart Palpitations Coding Level of Care Code ED Ham Sawyer for Kurtis Arambula
--- NOTE | 2023-07-29 15:01 | XR_ITS ---
WS: [id number] XR chest 1V [id number] REASON FOR EXAM: palpitations FINDINGS: The chest is unchanged compared to 05/25/2023. Mild tortuosity of the thoracic aorta. Normal heart size. Calcified granulomas disease in both hemithoraces. No acute or subacute pulmonary parenchymal or pleural abnormality. Unremarkable bony thorax for age. IMPRESSION: No acute chest abnormality.
[2023-07-29 15:18] VITALS: BP 156/82; PULSE 78; RESP 14; O2SAT 93
[2023-07-29 15:21] LABS: Basophils % 0.5 %; Eosinophils # 0.1 10^3/uL (0.0-0.8); Eosinophils % 1.8 %; Hematocrit 40.6 % (36-47); Lymphocytes # 2.4 10^3/uL (0.8-4.8); Lymphocytes % 42.2 %; Mean Corpuscular HGB Conc 33.3 g/dL (30-55); Mean Corpuscular Hemoglobin 32.7 pg (27-33); Mean Corpuscular Volume 98.3 fl (85-98); Mean Platelet Volume 9.5 fL (7.4-10.4); Monocytes # 0.6 10^3/uL (0.2-0.9); Monocytes % 10.3 %; Neutrophils # 2.57 10^3/uL (1.8-7.7); Nucleated Red Blood Cells % 0 %; Platelet Count 182 10^3/cmm (157-399); Red Blood Count 4.13 10^6/uL (3.85-5.65); White Blood Count 5.71 10^3/uL (3.29-11.43)
[2023-07-29 15:41] LABS: Troponin(5th) Baseline 15 ng/L (0-10)
[2023-07-29 15:51] LABS: Alanine Aminotransferase 10 U/L (0-33); Albumin Level 4.1 g/dL (3.5-5.2); Alkaline Phosphatase 79 U/L (35-105); Anion Gap 14.8 (5-19); Aspartate Amino Transferase 20 U/L (0-32); Blood Urea Nitrogen 18 mg/dL (8-23); Calcium 9.2 mg/dL (8.5-10.5); Carbon Dioxide 29 mmol/L (22-29); Chloride 104 mmol/L (98-107); Globulin 2.3 g/dL (1.3-4.6); Glucose 117 mg/dL (65-115); Magnesium 1.9 mg/dL (1.7-2.3); Osmolality Calculated 301 mOsm/kg (285-295); Potassium 3.8 mmol/L (3.5-5.1); Sodium 144 mmol/L (136-145); Thyroid Stimulating Hormone 1.33 uIU/mL (0.27-4.20); Total Bilirubin 0.6 mg/dL (0.15-1.2); Total Protein 6.4 g/dL (6.6-8.7)
--- NOTE | 2023-07-29 15:52 | PC.PHAR ---
pt states she takes care of her own medications-pt states she just recently started taking prevagen chewables a week ago-pt states she is unsure if she takes amlodipine 5mg daily or 5mg bid ext shows 5mg daily written 06/01/23 and ext shows 5mg bid filled 05/24/23 90d/s-pt states she isnt sure if its daily or bid but states she only takes 3 tabs at hs and states those tabs are kcl 20meq ,ocuvite and meclizine-notes are made in the pharmacy comments
[2023-07-29 16:18] VITALS: BP 156/82; PULSE 79; RESP 17; O2SAT 95
[2023-07-29 18:26] LABS: Bacteria Urine TRACE /hpf; Bilirubin Urine Neg (Negative); Blood Urine Neg (Negative); Glucose Urine UA Norm (Normal); Ketones Urine Negative (Negative); Leukocyte Esterase Urine Negative (Negative); Nitrate Urine Negative (Negative); Protein Urine Neg (Negative); RBC Urine 0-4 /hpf (0-2); Squamous Epithelial Cell Urine 0-4 /hpf (0-5); Urine Appearance Clear (CLEAR); Urine Color Yellow (Yellow); Urobilinogen Urine Norm (Negative); WBC Urine 0-4 /hpf (0-5); pH Urine 7 (5-7)
[2023-07-29 18:51] VITALS: PULSE 84; RESP 20; O2SAT 94
[2023-07-29 19:29] VITALS: PULSE 84; RESP 19; O2SAT 93
== END 2023-07-29 19:30 | disposition home or self-care (01) ==
PROVIDERS: Emergency Provider Emergency Medicine; PCP Family Medicine
DX: R00.2 Palpitations (principal); Z79.84 Long term (current) use of oral hypoglycemic drugs; I11.0 Hypertensive heart disease with heart failure; I50.9 Heart failure, unspecified; E11.9 Type 2 diabetes mellitus without complications; H35.30 Unspecified macular degeneration; Z85.3 Personal history of malignant neoplasm of breast
CPT/HCPCS: 71045; 80053; 81001; 83735; 84443; 84484; 85025; 93005; 99285

== ENCOUNTER 2023-08-12 10:11 | Emergency (ER) | payer MEDICARE, MEDICAID, SELFPAY ==
[2023-08-12 10:13] VITALS: BP 140/64; PULSE 71; RESP 16; TEMP 36.6; O2SAT 94; BMI 28.7
--- NOTE | 2023-08-12 10:25 | CT_ITS ---
WS: [id number] CT HEAD TECHNIQUE: Noncontrast CT of the head obtained from the skullbase to the vertex. CLINICAL INFORMATION: vertigo COMPARISON: 2020 DLP: 1005.[address] scans at [facility] use at least one of these dose optimization techniques: automated e xposure control; mA and/or kV adjustment per patient size (includes targeted exams where dose is matc hed to clinical indication); or iterative reconstruction. FINDINGS: No evidence of intracranial hemorrhage or mass effect. Ventricular system and basal cisterns are farias nt. Moderate small vessel changes with moderate parenchymal volume loss. Intracranial vascular calcif ication. No extra-axial fluid collections. No evidence of mass or mass effect. Trace mucosal thickening in the ethmoid air cells. Paranasal sinuses are otherwise well aerated where visualized. Mastoid air cells are well aerated. IMPRESSION: 1. No evidence of intracranial hemorrhage or mass effect. 2. Moderate small vessel changes. Moderate parenchymal volume loss. 3. Intracranial vascular calcification. 4. No acute intracranial findings.
--- NOTE | 2023-08-12 10:25 | ECG_ITS ---
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 Measurements Intervals [place] Rate: 69 P: 45 SC: 195 QRS: 5 QRSD: 149 T: 44 QT: 442 QTc: 475 Interpretive Statements SINUS RHYTHM LEFT BUNDLE BRANCH BLOCK [120+ ms QRS DURATION, 80+ ms Q/S IN V1/V2, 85+ ms R IN I/aVL/V5/V6] Compared to ECG 07/29/2023 14:50:25 No significant changes Electronically Signed On 08-12-2023 10:46:05 PHOTOCOPYING MACHINE OPERATOR by Jon Guzmán M.D. [email or web address]
--- NOTE | 2023-08-12 10:41 | W.ED.DIZZY ---
HPI - Dizziness General: Chief Complaint: Dizziness Stated Complaint: dizziness Time Seen by Provider: 08/12/23 10:13 Source: patient Mode of arrival: ambulatory Limitations: no limitations History of Present Illness: HPI Narrative: 87-year-old female states the last 2 days she has been having dizziness. She states that she feels like the room is spinning she states that she has no symptoms when she is laying flat but states that she moves her head or if she stands or bends over she gets very dizzy. Denies any headache denies any fever denies any cough she has had nausea with the symptoms. Associated symptoms: Denies chest pain, chills, headache(s), nausea or vomiting Review of Systems Const: Denies: fever(s), chills, body aches or change in appetite ENMT: Denies: throat pain or dental pain Card: Denies: chest pain Resp: Denies: dyspnea GI: Denies: abdominal pain, nausea, vomiting or diarrhea Musc: Denies: neck pain or back pain Skin/Breast: Denies: rash Neuro: Reports: dizziness; Denies: headache(s) PFSH ED PFSH: Medical History Actinic keratosis CHF (congestive heart failure) Tricuspid valve regurgitation Hx of type 2 diabetes mellitus Essential hypertension GERD (gastroesophageal reflux disease) Hypertension Macular degeneration History of breast cancer Surgical History Hx of cataract extraction Hx of appendectomy Hx of left mastectomy History of total right knee replacement Hx of hysterectomy Hx of tonsillectomy History of cholecystectomy History of bladder repair surgery Family History Mother CAD (coronary artery disease) Cancer Father Cancer Denies family history of Diabetes Clotting disorder Dementia Chronic kidney disease (CKD) Suicide Anesthesia complication Bleeding disorder Lung disease Stroke Social History Alcohol intake: never Substance/Drug Use: never Physical Exam Const: COMMON NORMALS: patient oriented x3 HENMT: COMMON NORMALS: normocephalic and atraumatic HEAD & SCALP: normocephalic and atraumatic Eye: COMMON NORMALS: Equal, round and reactive pupils present and EOMs intact bilaterally PUPIL: Yes Equal, round and reactive pupils present OTHER: Beating nystagmus when she looks to the right Neck/C-Spine: COMMON NORMALS: full ROM and supple Chest: COMMONS NORMALS: normal inspection of the chest and normal palpation of entire chest wall Resp: COMMON NORMALS: normal respiratory effort, No retractions, No use of accessory muscles and clear to auscultation bilaterally AUSCULTATION: clear to auscultation bilaterally Cardio: COMMON NORMALS: regular rate, regular rhythm and No murmurs present (Cardio) RATE: regular rate RHYTHM: regular rhythm Extremity: COMMON NORMALS: normal to inspection and full ROM Neuro: COMMON NORMALS: patient oriented x3, moves all extremities and no focal motor deficits CRANIAL NERVES: Yes CN normal except as noted SPEECH: speech normal MOTOR EXAM: 5/5 motor strength present throughout Psych: COMMON NORMALS: mental status grossly normal, Normal thought process present and cooperative THOUGHT PROCESS: Normal thought process present Skin: COMMON NORMALS: no rashes or lesions noted and no wounds GENERAL SKIN EXAM: no rashes or lesions noted Course Vital Signs: Vital signs: Vital Signs Temperature 97.9 F 08/12/23 10:13 Pulse Rate 72 08/12/23 11:49 Respiratory Rate 16 08/12/23 10:13 Blood Pressure 140/64 08/12/23 10:13 Pulse Oximetry 96 08/12/23 11:49 Oxygen Delivery Me thod Room Air 08/12/23 11:49 MDM - Dizziness Medical Decision Making Patient presents here with vertigo is likely peripheral vertigo she has no signs of a posterior stroke she feels much improved here after Antivert and Zofran she walked the halls here without any dizziness she is stable for discharge she is to follow-up with PCP and return if worsening she understands agrees to plan will prescribe her Zofran and she already has meclizine at home. Medical Records I reviewed the patient's medical records. Lab Data I reviewed the patient's lab results. 08/12/23 10:46 08/12/23 10:46 Laboratory Results WBC 5.20 10^3/uL (3.29-11.43) 08/12/23 10:46 RBC 3.97 10^6/uL (3.85-5.65) 08/12/23 10:46 Hgb 13.00 g/dL (11.27-16.99) 08/12/23 10:46 Hct 38.6 % (36-47) 08/12/23 10:46 MCV 97.2 fl (85-98) 08/12/23 10:46 MCH 32.7 pg (27-33) 08/12/23 10:46 MCHC 33.7 g/dL (30-55) 08/12/23 10:46 RDW 11.9 % (12.1-15.1) L 08/12/23 10:46 Plt Count 203 10^3/cmm (157-399) 08/12/23 10:46 MPV 9.6 fL (7.4-10.4) 08/12/23 10:46 Neut % (Auto) 51.9 % 08/12/23 10:46 Lymph % (Auto) 35.2 % 08/12/23 10:46 [place] % (Auto) 10.6 % 08/12/23 10:46 Eos % (Auto) 1.5 % 08/12/23 10:46 Baso % (Auto) 0.6 % 08/12/23 10:46 Neut # (Auto) 2.70 10^3/uL (1.8-7.7) 08/12/23 10:46 Lymph # (Auto) 1.8 10^3/uL (0.8-4.8) 08/12/23 10:46 [place] # (Auto) 0.6 10^3/uL (0.2-0.9) 08/12/23 10:46 Eos # (Auto) 0.1 10^3/uL (0.0-0.8) 08/12/23 10:46 Baso # (Auto) 0.0 10^3/uL (0.0-0.1) 08/12/23 10:46 Nucleated RBC % (auto) 0 % 08/12/23 10:46 Nucleated RBCs # 0.0 /100WBC 08/12/23 10:46 PT 14.10 SECONDS (12.1-14.9) 08/12/23 10:46 INR 1.05 (0.8-1.2) 08/12/23 10:46 Sodium 142 mmol/L (136-145) 08/12/23 10:46 Potassium 3.8 mmol/L (3.5-5.1) 08/12/23 10:46 Chloride 103 mmol/L (98-107) 08/12/23 10:46 Carbon Dioxide 29 mmol/L (22-29) 08/12/23 10:46 Anion Gap 13.8 (5-19) 08/12/23 10:46 BUN 23 mg/dL (8-23) 08/12/23 10:46 Creatinine 0.9 mg/dL (0.5-0.9) 08/12/23 10:46 GFR Calculation Not Reportable 08/12/23 10:46 Glucose 235 mg/dL (65-115) H 08/12/23 10:46 Calculated Osmolality 305 mOsm/kg (285-295) H 08/12/23 10:46 Calcium 9.2 mg/dL (8.5-10.5) 08/12/23 10:46 Total Bilirubin 0.5 mg/dL (0.15-1.2) 08/12/23 10:46 AST 18 U/L (0-32) 08/12/23 10:46 ALT 10 U/L (0-33) 08/12/23 10:46 Alkaline Phosphatase 87 U/L (35-105) 08/12/23 10:46 Total Protein 6.8 g/dL (6.6-8.7) 08/12/23 10:46 Albumin 4.1 g/dL (3.5-5.2) 08/12/23 10:46 Globulin 2.7 g/dL (1.3-4.6) 08/12/23 10:46 All radiology interpretation(s) finalized by discharge EKG Data EKG 1: I personally reviewed and interpreted this EKG as follows: EKG interpretation date: 08/12/23 EKG interpretation time: 10:31 Interpretation: nsr hr [address] elevation qrs 149 qtc 461 Discharge Plan Discharge Patient Disposition: Home Clinical Impression: Vertigo Condition: Stable Prescriptions: New ondansetron 4 mg tablet,disintegrating 4 mg PO Q6H PRN (Reason: nausea and vomiting) Qty: 14 0RF No Action latanoprost [Xalatan] 0.005 % drops 1 drop ophthalmic (eye) QPM amlodipine 5 mg tablet 5 mg PO DAILY brimonidine [Alphagan P] 0.1 % drops 1 drp ophthalmic (eye) BID Ocuvite Adult 50 Plus 250 mg (90 mg-160 mg) Capsule 1 cap PO BID lisinopril-hydrochlorothiazide 20-12.5 mg tablet 1 tab PO QAM metoprolol succinate 200 mg tablet extended release 24 hr 200 mg PO QAM glimepiride 2 mg tablet 2 mg PO QAM potassium chloride 20 mEq tablet,ER particles/crystals 20 meq PO BID meclizine 25 mg tablet 25 mg PO BID fluoxetine 20 mg capsule 20 mg PO QAM benzonatate 100 mg capsule 100 mg PO TID PRN (Reason: cough) Qty: 30 0RF Prevagen Chewables 1 tab PO DAILY loperamide [Imodium A-D] 2 mg tablet 2 mg PO . DIRECTED PRN (Reason: Diarrhea) Discharge Orders: Discharge ED (Routine); Ordered 08/12/23 Ordered By: Adrienne Manuel Referrals: Eirc Blanchard MD [Primary Care Provider] - 4-7 days Discharge Diet: Advance as tolerated Discharge Activity: Resume usual activity Patient Instructions: Vertigo (ED), Benign Paroxysmal Positional Vertigo (ED) Coding Level of Care Code ED Environmental Resource Specialist for Kurtis Arambula
[2023-08-12 10:53] LABS: Basophils % 0.6 %; Eosinophils # 0.1 10^3/uL (0.0-0.8); Eosinophils % 1.5 %; Hematocrit 38.6 % (36-47); Lymphocytes # 1.8 10^3/uL (0.8-4.8); Lymphocytes % 35.2 %; Mean Corpuscular HGB Conc 33.7 g/dL (30-55); Mean Corpuscular Hemoglobin 32.7 pg (27-33); Mean Corpuscular Volume 97.2 fl (85-98); Mean Platelet Volume 9.6 fL (7.4-10.4); Monocytes # 0.6 10^3/uL (0.2-0.9); Monocytes % 10.6 %; Neutrophils % 51.9 %; Nucleated Red Blood Cells % 0 %; Platelet Count 203 10^3/cmm (157-399); Red Blood Count 3.97 10^6/uL (3.85-5.65); Red Cell Distribution Width 11.9 % (12.1-15.1)
[2023-08-12] MEDS: meclizine 25 mg tablet 50 MG PO (10:53)
[2023-08-12] MEDS: sodium chloride 0.9% 500 ML IV (10:54)
[2023-08-12 11:05] LABS: INR 1.05 (0.8-1.2)
[2023-08-12 11:13] LABS: Alanine Aminotransferase 10 U/L (0-33); Albumin Level 4.1 g/dL (3.5-5.2); Alkaline Phosphatase 87 U/L (35-105); Anion Gap 13.8 (5-19); Aspartate Amino Transferase 18 U/L (0-32); Blood Urea Nitrogen 23 mg/dL (8-23); Calcium 9.2 mg/dL (8.5-10.5); Carbon Dioxide 29 mmol/L (22-29); Chloride 103 mmol/L (98-107); Globulin 2.7 g/dL (1.3-4.6); Glucose 235 mg/dL (65-115); Osmolality Calculated 305 mOsm/kg (285-295); Potassium 3.8 mmol/L (3.5-5.1); Sodium 142 mmol/L (136-145); Total Bilirubin 0.5 mg/dL (0.15-1.2); Total Protein 6.8 g/dL (6.6-8.7)
[2023-08-12 11:49] VITALS: PULSE 72; O2SAT 96
[2023-08-12 12:15] VITALS: BP 166/84; O2SAT 98; O2SAT 99
== END 2023-08-12 12:17 | disposition home or self-care (01) ==
PROVIDERS: Emergency Provider Emergency Medicine; PCP Family Medicine
DX: R42 Dizziness and giddiness (principal); Z79.84 Long term (current) use of oral hypoglycemic drugs; I11.0 Hypertensive heart disease with heart failure; I50.9 Heart failure, unspecified; E11.9 Type 2 diabetes mellitus without complications; H35.30 Unspecified macular degeneration; Z85.3 Personal history of malignant neoplasm of breast
CPT/HCPCS: 70450; 80053; 85025; 85610; 93005; 96360; 96361; 99285; J7040; J8597

== ENCOUNTER 2023-11-16 09:50 | Outpatient (CLI) | payer MEDICARE, MEDICAID, SELFPAY ==
--- NOTE | 2023-11-16 10:30 | MM_ITS ---
WS: [id number] DIAGNOSTIC BILATERAL DIGITAL BREAST TOMOSYNTHESIS MAMMOGRAPHY WITH CAD HISTORY: hx of breast cancer COMPARISON: 11/02/2022, 10/27/2021 and 08/23/2017 TECHNIQUE: Bilateral craniocaudad, mediolateral oblique, and mediolateral views are submitted with to mosynthesis and SM. Computer aided detection utilized. Breast composition: The breasts are heterogeneously dense, which may obscure small masses. Volume los s and postoperative changes LEFT breast are stable. Benign calcifications RIGHT breast. No suspicious grouping or cluster of calcifications. MM/[place] [id number] IMPRESSION: BI-RADS: 2-Benign FOLLOW UP: 1 Year Follow-up
== END 2023-11-16 09:51 | disposition home or self-care (01) ==
LOC: RAD 09:52
PROVIDERS: PCP Family Medicine; Visit Provider Family Medicine
DX: Z08 Encounter for follow-up examination after completed treatment for malignant neoplasm (principal); R92.333 Mammographic heterogeneous density, bilateral breasts; Z85.3 Personal history of malignant neoplasm of breast
CPT/HCPCS: 77062; G0279

== ENCOUNTER → 2023-12-15 12:12 | Outpatient (BNVA) | payer MEDICARE, MEDICAID, SELFPAY | PROVIDERS: PCP Family Medicine; Visit Provider Family Medicine | DX: I10 Essential (primary) hypertension (principal); I50.30 Unspecified diastolic (congestive) heart failure; Z86.39 Personal history of other endocrine, nutritional and metabolic disease; M17.11 Unilateral primary osteoarthritis, right knee | CPT/HCPCS: 80053; 80061; 83036; 83880; 85025 ==

== ENCOUNTER → 2024-05-03 10:38 | Outpatient (BNVA) | payer MEDICARE, MEDICAID, SELFPAY | PROVIDERS: PCP Family Medicine; Visit Provider Family Medicine | DX: E11.9 Type 2 diabetes mellitus without complications (principal); I10 Essential (primary) hypertension; Z86.39 Personal history of other endocrine, nutritional and metabolic disease | CPT/HCPCS: 80053; 80061; 84443; 85025 ==

== ENCOUNTER → 2024-05-28 15:29 | Outpatient (BNVA) | payer MEDICARE, MEDICAID, SELFPAY | PROVIDERS: PCP Family Medicine; Visit Provider Family Medicine | DX: L98.9 Disorder of the skin and subcutaneous tissue, unspecified (principal) | CPT/HCPCS: 88305 ==

== ENCOUNTER → 2024-06-12 08:09 | Outpatient (BNVA) | payer MEDICARE, MEDICAID, SELFPAY | PROVIDERS: PCP Family Medicine; Visit Provider Family Medicine | DX: N39.0 Urinary tract infection, site not specified (principal); J06.9 Acute upper respiratory infection, unspecified | CPT/HCPCS: 81000; 87086; 87426 ==

== ENCOUNTER → 2024-06-21 09:07 | Outpatient (BNVA) | payer MEDICARE, MEDICAID, SELFPAY | PROVIDERS: PCP Family Medicine; Visit Provider Family Medicine | DX: R41.0 Disorientation, unspecified (principal) | CPT/HCPCS: 80053; 82306; 82607; 84443; 85025; 86140 ==

== ENCOUNTER → 2024-08-20 12:55 | Outpatient (BNVA) | payer MEDICARE, MEDICAID, SELFPAY | PROVIDERS: PCP Family Medicine; Visit Provider Family Medicine | DX: I50.30 Unspecified diastolic (congestive) heart failure (principal) | CPT/HCPCS: 83880 ==

== ENCOUNTER 2024-11-11 20:51 | Emergency (ER) | payer OTHER, MEDICAID, SELFPAY ==
[2024-11-11 20:57] VITALS: BP 186/93; PULSE 61; RESP 17; TEMP 36.4; O2SAT 96; BMI 24.7
--- NOTE | 2024-11-11 21:01 | XRR_ITS ---
PROCEDURE INFORMATION: Exam: XR Right Hip Exam date and time: 11/11/2024 9:47 PM Age: 89 years old Clinical indication: Injury or trauma; Blunt trauma (contusions or hematomas); Right; Prior surgery; Surgery date: 6+ months; Surgery type: Appy. Hysterectomy. Bladder repair; EMS arrival for multiple falls over last two days. C/O RT hip pain. ; Additional info: Fall TECHNIQUE: Imaging protocol: Radiologic exam of the right hip. Views: 1 view hip with pelvis when performed. COMPARISON: No relevant prior studies available. FINDINGS: Bones/joints: No acute fracture. Soft tissues: Unremarkable. XR/XR hip RT 2-3V wo/w pel* [id number] IMPRESSION: No acute findings.
--- NOTE | 2024-11-11 21:01 | XRR_ITS ---
PROCEDURE INFORMATION: Exam: XR Left Shoulder Exam date and time: 11/11/2024 9:52 PM Age: 89 years old Clinical indication: EMS arrival for multiple falls over last two days. C/O left shoulder pain. ; Additional info: Fall TECHNIQUE: Imaging protocol: Radiologic exam of the left shoulder. Views: 2 or more views. COMPARISON: CR XR chest 1V [id number] 07/29/2023 3:21 PM FINDINGS: Bones/joints: Normal. Soft tissues: Normal. XR/XR shoulder LT min 2V* [id number] IMPRESSION: No acute findings.
[2024-11-11 21:42] VITALS: BP 206/85; PULSE 86; O2SAT 96
--- NOTE | 2024-11-11 22:22 | CTR_ITS ---
PROCEDURE INFORMATION: Exam: CT Head Without Contrast Exam date and time: 11/11/2024 10:41 PM Age: 89 years old Clinical indication: Injury or trauma; Blunt trauma (contusions or hematomas); EMS arrival for multiple falls over last two days. Patient states she hit the RT side of head from a fall earlier this evening. ; Additional info: Fall, head injury TECHNIQUE: Imaging protocol: Computed tomography of the head without contrast. Radiation optimization: All CT scans at this facility use at least one of these dose optimization techniques: automated exposure control; mA and/or kV adjustment per patient size (includes targeted exams where dose is matched to clinical indication); or iterative reconstruction. COMPARISON: CT head wo con* [id number] 08/12/2023 11:02 AM RADIATION DOSE METRICS: Total DLP (mGy-cm): 979.15 FINDINGS: Brain: No hemorrhage. No edema. Advanced diffuse cerebral atrophy and sequela of chronic small vessel ischemic disease. No mass effect. Cerebral ventricles: No ventriculomegaly. Paranasal sinuses: Visualized sinuses are unremarkable. No fluid levels. Mastoid air cells: Visualized mastoid air cells are well aerated. Bones: Unremarkable. No acute fracture. Soft tissues: Unremarkable. CT/CT head wo con* [id number] IMPRESSION: No acute intracranial abnormality.
--- NOTE | 2024-11-11 22:29 | ED_ITS ---
HPI - Fall General: Chief Complaint: Fall Stated Complaint: falls, L shoulder pain, hit head Time Seen by Provider: 11/11/24 21:13 Source: patient, family and EMS Mode of arrival: EMS Limitations: other (Patient has some mild dementia per daughters) History of Present Illness: Patient is an 89-year-old female that presents to the emergency department with left shoulder pain, right hip pain and a head injury after fall today. The patient has had multiple falls over the last week. The latest fall was about 2 hours prior to arrival. She fell from a standing position and hit the back of her head on the right. She reports left shoulder pain and right hip pain. She denies any loss of consciousness. She has a skin tear on the right forearm. She is unsure of her last tetanus immunization and so booster was given in the emergency department. She is awake and alert. She knows where she is and she knows the month but she is unsure of the year. The daughter states that this is baseline for the patient. Patient denies any nausea, vomiting, chest pain, shortness of breath, abdominal pain, knee pain, ankle pain or any other injuries. She presents to the emergency department for further evaluation and treatment. Associated symptoms-after fall: Denies abdominal pain, chest pain, headache(s) or neck pain Related Data Home Medications ?Medication ?Instructions ?Recorded ?Confirmed latanoprost 0.005 % eye drops 1 drop ophthalmic (eye) QPM 12/12/09/25/24 (Xalatan) brimonidine 0.1 % eye drops 1 drp ophthalmic (eye) BID 05/25/23 09/25/24 (Alphagan P) [id number] 250 mg-dha 90 1 cap PO BID 3 09/25/24 mg-epa 160 [id number] capsule (Ocuvite Adult 50 Plus) Prevagen Chewables 1 tab PO DAILY 07/29/2302/11 loperamide 2 mg tablet (Imodium 2 mg PO . DIRECTED P RN Diarrhea 07/29/23 09/25/24 A-D) Previous Rx's ?Medication ?Instructions ?Recorded ondansetron 4 mg disintegrating 4 mg PO Q6H PRN nausea and 08/12/23 tablet vomiting #14 tabs metoprolol succinate 200 mg See Rx Instructions .Route 11/23/23 tablet,extended release 24 hr .COMPLEX #90 tabs diazepam 2 mg tablet 1 mg (1/2 x 2 mg) PO .QHS MA N 07/24/24 anxiety #30 tabs amlodipine 5 mg tablet See Rx Instructions .Route 0 08/17/24 Held on 09/25/24. .COMPLEX #60 tabs Instructions: Adverse Reaction glimepiride 2 mg tablet See Rx Instructions .Route 0 08/17/24 .COMPLEX #30 tabs lisinopril 20 See Rx Instructions .Route 0 08/17/24 mg-hydrochlorothiazide 12.5 mg .COMPLEX #90 tabs tablet potassium chloride 20 mEq See Rx Instructions .Route 0 08/17/24 tablet,extended release(part/cryst) .COMPLEX #60 tabs fluoxetine 20 mg capsule 20 mg PO DAILY #30 caps 09/11 Allergies Allergy/AdvReac Type Severity Reaction Status Date / Time Sulfa (Sulfonamide Allergy Unknown Verified 06/21/24 08:33 Antibiotics) meclizine AdvReac Mild ADR-Confusi Verified 07/24/24 10:43 on Review of Systems General: Reports: 10 or more systems reviewed and unremarkable except in HPI and below Const: Denies: fever(s) or chills Eyes: Denies: change in vision or blurry vision ENMT: Denies: throat pain or ear or mastoid pain Card: Denies: chest pain or palpitations Resp: Denies: dyspnea, productive cough, non-productive cough or wheezing GI: Denies: abdominal pain, nausea or vomiting : Denies: flank pain, difficulty voiding or dysuria Musc: Reports: extremity pain (Left shoulder and right hip); Denies: neck pain or back pain Skin/Breast: Reports: other (Skin tears of the right forearm) Neuro: Denies: headache(s), numbness in extremities or weakness in extremities Psych: Denies: anxiety or depression Endo: Denies: polyuria or polydipsia Mauricio/Lymph: Denies: easy bruising, easy bleeding or petechiae All/Imm: Denies: urticaria, throat swelling or tongue swelling PFSH ED PFSH: Medical History Depression Actinic keratosis CHF (congestive heart failure) Tricuspid valve regurgitation Hx of type 2 diabetes mellitus Essential hypertension GERD (gastroesophageal reflux disease) Hypertension Macular degeneration History of breast cancer Surgical History Hx of cataract extraction Hx of appendectomy Hx of left mastectomy History of total right knee replacement Hx of hysterectomy Hx of tonsillectomy History of cholecystectomy History of bladder repair surgery Family History Mother CAD (coronary artery disease) Cancer Father Cancer Denies family history of Diabetes Clotting disorder Dementia Chronic kidney disease (CKD) Suicide Anesthesia complication Bleeding disorder Lung disease Stroke Social History (Updated 11/11/24 @ 22:55 by CHRISS Sanchez) Smoking and tobacco/nicotine status: former use of tobacco/nicotine Alcohol intake: never Substance/Drug Use: never Physical Exam Const: COMMON NORMALS: no acute distress and alert; negative for patient oriented x3 (Patient is unsure of the year) GENERAL APPEARANCE: cooperative ORIENTATION/CONSCIOUSNESS: Yes awake, Yes oriented to person and Yes oriented to place; not oriented to time (Patient is unsure of the) HENMT: COMMON NORMALS: normocephalic, external ears normal, EAC's normal, TM's normal bilaterally (No hemotympanums) and Normal external nose present HEAD & SCALP: normocephalic FACE & SINUS: normal facial exam NOSE: Normal external nose present EXTERNAL EAR: Yes external ears normal EXTERNAL AUDITORY CANAL: EAC's normal TYMPANIC MEMBRANE: TM's normal bilaterally (No hemotympanums) MOUTH: Normal oral and palatal mucosa present THROAT: posterior oropharynx normal Eye: COMMON NORMALS: Equal, round and reactive pupils present, EOMs intact bilaterally and conjunctivae normal CONJUNCTIVA: Yes conjunctivae normal PUPIL: Yes Equal, round and reactive pupils present Neck/C-Spine: COMMON NORMALS: full ROM, no lymphadenopathy and no meningeal signs GENERAL: Yes normal visual inspection, No anterior neck swelling and No tender CERVICAL SPINE: Yes cervical ROM normal Lymph: LYMPHATIC: no lymphadenopathy noted Resp: COMMON NORMALS: normal respiratory effort and clear to auscultation bilaterally AUSCULTATION: clear to auscultation bilaterally, no crackles, no rales, no rhonchi and no wheezes Cardio: COMMON NORMALS: regular rate and regular rhythm RATE: regular rate RHYTHM: regular rhythm GI: COMMON NORMALS: Normal to inspection, nondistended, normoactive bowel sounds present, Soft to palpation and non-tender PALPATION: Yes Soft to palpation : COMMON NORMALS: Yes no CVA tenderness BLADDER/KIDNEY EXAM: Yes no CVA tenderness Back/Pelvis: COMMON NORMALS: no CVA tenderness, thoracic and lumbar spine normal to inspection, no thoracic nor lumbar tenderness and thoraco-lumbar ROM normal Extremity: COMMON NORMALS: full ROM (Does report some pain with range of motion of the left shoulder and the rig) RIGHT UPPER EXTREMITY: Yes shoulder joint Right shoulder: Yes Right shoulder joint ROM exam, Yes upper arm Right upper arm: Yes inspection, Yes elbow joint Right elbow: Yes inspection and Yes ROM, Yes lower arm Right lower arm: Yes inspection (Skin tears noted on the right forearm. No active bleeding.), Yes wrist Right wrist: Yes ROM and Yes hand & digits Right hand and digits: Yes ROM exam LEFT UPPER EXTREMITY: Yes shoulder joint (Tenderness to left posterior shoulder) Left shoulder joint: Yes ROM, Yes upper arm, Yes elbow joint Left elbow: Yes ROM, Yes lower arm Left lower arm: Yes inspection, Yes wrist Left wrist: Yes inspection and Yes ROM and Yes hand & digits Left hand and digits: Yes inspection and Yes ROM RIGHT LOWER EXTREMITY: Yes hip joint Right hip: Yes ROM (ROM is normal but patient does report pain with ROM of R hip), Yes knee joint Right knee: Yes ROM, Yes lower leg (Patient does have bilateral pedal edema but no tenderness) Right lower leg: Yes palpation, Yes foot & digits Right ankle: Yes ROM and Yes foot & digits Right foot and digits: Yes ROM LEFT LOWER EXTREMITY: Yes hip joint Left hip: Yes ROM, Yes knee joint Left knee: Yes ROM, Yes lower leg (Patient does have bilateral pedal edema but no tenderness), Yes ankle joint Left ankle: Yes ROM and Yes foot & digits Left foot and digits: Yes ROM Neuro: COMMON NORMALS: CN's II-XII intact bilaterally; negative for patient oriented x3 (Patient is unsure of the year) SENSORIUM/ORIENTATION: Yes alert, Yes oriented to person, Yes oriented to place and No oriented to time (Patient is unsure of the) MENINGEAL SIGNS: Yes no meningeal signs and No nuccal rigidity COORDINATION/BALANCE: [id number] test normal SPEECH: speech normal SENSORY EXAM: Yes extremities; No sensory level loss detected MOTOR EXAM: 5/5 motor strength present throughout, Pronator motor function not present and No Pronator motor function present COORDINATION: [id number] test normal Psych: COMMON NORMALS: mental status grossly normal, cooperative and speech normal ATTITUDE: Yes calm SPEECH: Yes normal speech Skin: GENERAL SKIN EXAM: other (Skin tears to the right forearm. No active bleeding.) WOUNDS: Yes wounds noted (Skin tears right forearm) Course ED course: I discussed case with Dr. Ayala who agrees with the assessment and plan. Vital Signs: Vital signs: Vital Signs Temperature 97.6 F 11/11/24 20:57 Pulse Rate 55 L 11/11/24 23:15 Respiratory Rate 18 11/11/24 23:15 Blood Pressure 176/77 11/11/24 23:15 Pulse Oximetry 95 11/11/24 23:15 Oxygen Delivery Me thod Room Air 11/11/24 23:15 MDM - Fall Medical Decision Making Patient and her family were advised of the negative imaging findings. There was no sign of intracranial bleed or skull fracture on the CT scan. There is no sign of fracture of the left shoulder or the right hip. The patient denies any loss of consciousness. She denies any significant headache at this time. We did discuss the possible need of assisted living facility which the patient absolutely refused. I advised that she talk with her doctor concerning the possibility of home health. Patient was unsure of her last tetanus immunization and we did not see any on the electronic medical record so a booster was given in the emergency department. Skin tears were cleaned and a sterile dressing was placed. I advise she watch for signs of infection. I recommended she follow-up with her primary care provider in 1 week for recheck and return to the emergency department with any worsening symptoms. The patient expressed understanding. Medical Records I reviewed the patient's medical records. Lab Data Radiology Impressions Hip/Pelvis X-Ray 11/11/24 21:01 IMPRESSION: No acute findings. Shoulder X-Ray 11/11/24 21:01 IMPRESSION: No acute findings. Head CT 11/11/24 22:22 IMPRESSION: No acute intracranial abnormality. All radiology interpretation(s) finalized by discharge Critical Care Time Critical Care Time: Critical Care Time: No Discharge Plan Discharge Patient Disposition: Home Clinical Impression: Acute pain of right hip Contusion of head Qualifiers: Encounter type: initial encounter Contusion of head detail: scalp Qualified Code(s): S00.03XA - Contusion of scalp, initial encounter Contusion of left scapular region Qualifiers: Encounter type: initial encounter Qualified Code(s): S40.012A - Contusion of left shoulder, initial encounter Fall Qualifiers: Encounter type: initial encounter Qualified Code(s): W19.XXXA - Unspecified fall, initial encounter Skin tear of right forearm without complication Qualifiers: Encounter type: initial encounter Qualified Code(s): S51.811A - Laceration without foreign body of right forearm, initial encounter Condition: Stable Prescriptions: No Action latanoprost [Xalatan] 0.005 % drops 1 drop ophthalmic (eye) QPM lidocaine-epinephrine (PF) 2 %-1:200,000 solution 2 ml SUBCUT ONCE Qty: 2 0RF fluoxetine 20 mg capsule 20 mg PO DAILY Qty: 30 11RF diazepam 2 mg tablet 1 mg PO .QHS PRN (Reason: anxiety) Qty: 30 2RF metoprolol succinate 200 mg tablet extended release 24 hr See Rx Instructions .ROUTE .COMPLEX Qty: 90 10RF Dose Instruction: TAKE 1 TABLET BY MOUTH EVERY DAY Rx Instructions: TAKE 1 TABLET BY MOUTH EVERY DAY amlodipine 5 mg tablet See Rx Instructions .ROUTE .COMPLEX Qty: 60 5RF Dose Instruction: TAKE 1 TABLET BY MOUTH TWICE DAILY FOR hypertension Rx Instructions: TAKE 1 TABLET BY MOUTH TWICE DAILY FOR hypertension potassium chloride 20 mEq tablet,ER particles/crystals See Rx Instructions .ROUTE .COMPLEX Qty: 60 5RF Dose Instruction: TAKE 2 TABLETS BY MOUTH EVERY DAY Rx Instructions: TAKE 2 TABLETS BY MOUTH EVERY DAY glimepiride 2 mg tablet See Rx Instructions .ROUTE .COMPLEX Qty: 30 5RF Dose Instruction: TAKE ONE TABLET BY MOUTH EVERY DAY Rx Instructions: TAKE ONE TABLET BY MOUTH EVERY DAY lisinopril-hydrochlorothiazide 20-12.5 mg tablet See Rx Instructions .ROUTE .COMPLEX Qty: 90 5RF Dose Instruction: TAKE 1 TABLET BY MOUTH EVERY DAY DIRECTED Rx Instructions: TAKE 1 TABLET BY MOUTH EVERY DAY DIRECTED brimonidine [Alphagan P] 0.1 % drops 1 drp ophthalmic (eye) BID Ocuvite Adult 50 Plus 250 mg (90 mg-160 mg) Capsule 1 cap PO BID Prevagen Chewables 1 tab PO DAILY loperamide [Imodium A-D] 2 mg tablet 2 mg PO . DIRECTED PRN (Reason: Diarrhea) ondansetron 4 mg tablet,disintegrating 4 mg PO Q6H PRN (Reason: nausea and vomiting) Qty: 14 0RF Discharge Orders: Discharge ED (Routine); Ordered 11/12/24 Ordered By: Manjeet Britt Referrals: Eric Blanchard MD [Primary Care Provider, [facility]] Discharge Diet: Usual diet Discharge Activity: Increase activity as tolerated Patient Instructions: Fall Prevention for Older Adults (ED), Head Injury (ED), Contusion in Adults (ED), Skin Tear (ED), Hip Pain (ED), Opioid Safety, Pain Management Activity Restrictions/Additional Instructions: Take your current medications as directed. Avoid activities that make the symptoms worse. Follow-up with your doctor in 1 week for recheck. You may discuss with him home health care options at that time. Ice 20 minutes at a time, 5 times throughout the day as needed for pain or swelling. [id number] Tylenol as directed for pain. Return to the emergency department with any worsening symptoms. Print Language: Bulgarian Coding Level of Care Code ED Management Accounts Manager for Kurtis Arambula
[2024-11-11] MEDS: tetanus-dipt-pertussis 0.5 mL SDV IM (22:48)
[2024-11-11 23:15] VITALS: BP 176/77; PULSE 55; RESP 18; O2SAT 95
[2024-11-12 00:50] VITALS: BP 183/77; PULSE 57; O2SAT 98
== END 2024-11-12 00:51 | disposition home or self-care (01) ==
PROVIDERS: Emergency Provider Physician Assistant; PCP Family Medicine
DX: S00.03XA Contusion of scalp, initial encounter (principal); S40.012A Contusion of left shoulder, initial encounter; M25.551 Pain in right hip; S51.811A Laceration without foreign body of right forearm, initial encounter; R29.6 Repeated falls; I11.0 Hypertensive heart disease with heart failure; I50.9 Heart failure, unspecified; E11.9 Type 2 diabetes mellitus without complications; W19.XXXA Unspecified fall, initial encounter; Z88.2 Allergy status to sulfonamides; Z87.891 Personal history of nicotine dependence
CPT/HCPCS: 12345; 70450; 73030; 73502; 90471; 90715; 99284

== ENCOUNTER 2024-11-16 16:22 | Emergency (ER) | payer OTHER, MEDICAID, SELFPAY ==
[2024-11-16 16:26] VITALS: BP 212/89; PULSE 60; RESP 16; TEMP 36.8; O2SAT 94; BMI 24.7
--- NOTE | 2024-11-16 16:28 | XRR_ITS ---
PROCEDURE INFORMATION: Exam: XR Right Shoulder Exam date and time: 11/16/2024 4:40 PM Age: 89 years old Clinical indication: Injury or trauma; Fall; Blunt trauma (contusions or hematomas); Shoulder; Right; Additional info: Trauma/fall TECHNIQUE: Imaging protocol: Radiologic exam of the right shoulder. Views: 2 or more views. COMPARISON: CR XR chest 1V [id number] 07/29/2023 3:21 PM FINDINGS: Bones/joints: The bones are intact. No fracture or dislocation. Mild degenerative changes. Soft tissues: Normal. XR/XR shoulder RT min 2V* [id number] IMPRESSION: No acute findings.
--- NOTE | 2024-11-16 16:50 | ED_ITS ---
HPI - Fall General: Chief Complaint: Fall Stated Complaint: fall - shoulder pain Time Seen by Provider: 11/16/24 16:26 History of Present Illness: 89-year-old female presents emergency ro om after a fall. She fell at home while she was hanging up some close in her closet. She is complaining of some right shoulder pain. She fell backwards against the wall she has no other pain or discomfort. She is not on any anticoagulants. She is otherwise awake and alert. Associated symptoms-after fall: Denies abdominal pain, chest pain or neck pain Related Data Home Medications ?Medication ?Instructions ?Recorded ?Confirmed latanoprost 0.005 % eye drops 1 drop ophthalmic (eye) QPM 12/13/19 09/25/24 (Xalatan) brimonidine 0.1 % eye drops 1 drp ophthalmic (eye) BID 05/25/23 09/25/24 (Alphagan P) [id number] 250 mg-dha 90 1 cap PO BID 3 09/25/24 mg-epa 160 au-ctja-wwwr-zeax capsule (Ocuvite Adult 50 Plus) Prevagen Chewables 1 tab PO DAILY 07/29/2302/11 loperamide 2 mg tablet (Imodium 2 mg PO . DIRECTED P RN Diarrhea 07/29/23 09/25/24 A-D) Previous Rx's ?Medication ?Instructions ?Recorded ondansetron 4 mg disintegrating 4 mg PO Q6H PRN nausea and 08/12/23 tablet vomiting #14 tabs metoprolol succinate 200 mg See Rx Instructions .Route 11/23/23 tablet,extended release 24 hr .COMPLEX #90 tabs diazepam 2 mg tablet 1 mg (1/2 x 2 mg) PO .QHS [place] N 07/24/24 anxiety #30 tabs glimepiride 2 mg tablet See Rx Instructions .Route 0 08/17/24 .COMPLEX #30 tabs lisinopril 20 See Rx Instructions .Route 0 08/17/24 mg-hydrochlorothiazide 12.5 mg .COMPLEX #90 tabs tablet potassium chloride 20 mEq See Rx Instructions .Route 0 08/17/24 tablet,extended release(part/cryst) .COMPLEX #60 tabs fluoxetine 20 mg capsule 20 mg PO DAILY #30 caps 09/11 amlodipine 5 mg tablet 5 mg PO DAILY #30 tabs 11/16 Allergies Allergy/AdvReac Type Severity Reaction Status Date / Time Sulfa (Sulfonamide Allergy Unknown Verified 06/21/24 08:33 Antibiotics) meclizine AdvReac Mild ADR-Confusi Verified 07/24/24 10:43 on Review of Systems Const: Denies: fever(s) or chills Card: Denies: chest pain Resp: Denies: dyspnea GI: Denies: abdominal pain : Denies: dysuria, urinary frequency or urinary urgency Musc: Denies: neck pain or back pain Skin/Breast: Denies: rash PFSH ED PFSH: Medical History Depression Actinic keratosis CHF (congestive heart failure) Tricuspid valve regurgitation Hx of type 2 diabetes mellitus Essential hypertension GERD (gastroesophageal reflux disease) Hypertension Macular degeneration History of breast cancer Surgical History Hx of cataract extraction Hx of appendectomy Hx of left mastectomy History of total right knee replacement Hx of hysterectomy Hx of tonsillectomy History of cholecystectomy History of bladder repair surgery Family History Mother CAD (coronary artery disease) Cancer Father Cancer Denies family history of Diabetes Clotting disorder Dementia Chronic kidney disease (CKD) Suicide Anesthesia complication Bleeding disorder Lung disease Stroke Social History Smoking and tobacco/nicotine status: former use of tobacco/nicotine Alcohol intake: never Substance/Drug Use: never Physical Exam Const: GENERAL APPEARANCE: cooperative ORIENTATION/CONSCIOUSNESS: Yes awake, Yes oriented to person, Yes oriented to place and Yes oriented to time HENMT: COMMON NORMALS: normocephalic, atraumatic and hearing grossly normal bilaterally HEAD & SCALP: normocephalic and atraumatic Resp: COMMON NORMALS: normal respiratory effort, No retractions, No use of accessory muscles and clear to auscultation bilaterally AUSCULTATION: clear to auscultation bilaterally Cardio: COMMON NORMALS: regular rate, regular rhythm and No murmurs present (Cardio) RATE: regular rate RHYTHM: regular rhythm GI: COMMON NORMALS: Soft to palpation and No hepatosplenomegaly present AUSCULTATION: Yes normoactive bowel sounds PALPATION: Yes Soft to palpation, No Tenderness to palpation present (GI), No Guarding due to palpation present (GI) and Yes No hepatosplenomegaly present Extremity: COMMON NORMALS: normal to inspection, capillary refill normal, no clubbing, cyanosis or edema, no calf tenderness and no pedal edema OTHER: Examination right shoulder no deformity no abnormality full range of motion without pain. No pain or deformity with movement in the left arm or in either of the lower extremities. Neuro: SENSORIUM/ORIENTATION: Yes oriented to person, Yes oriented to place and Yes oriented to time Skin: COMMON NORMALS: no rashes or lesions noted GENERAL SKIN EXAM: no rashes or lesions noted Course Vital Signs: Vital signs: Vital Signs Temperature 98.3 F 11/16/24 16:26 Pulse Rate 60 11/16/24 16:26 Respiratory Rate 16 11/16/24 16:26 Blood Pressure 212/89 11/16/24 16:26 Pulse Oximetry 94 11/16/24 16:26 Oxygen Delivery Me thod Room Air 11/16/24 16:26 MDM - Fall Medical Decision Making X-ray of the right shoulder shows osteopenia but no acute fractures discharged home Tylenol ibuprofen as needed. Blood pressure was elevated resume amlodipine 5 mg daily Extensive discussion with family. At this point do not not have any emergent condition with which to admit the patient. Her fall today was a ground-level mechanical fall. I described the patient as having had several falls lately she has not had any significant injury but 6 out of the fair amount of bruising. Recommend they consider other levels of care given their description I think she most likely needs to go to the long term. They said they had evaluated this but were told that she had to be hospitalized for 3 days and then insurance would pay for it discussed the details of how that is not entirely accurate. That it would require 3 days of a qualifying stay and then participation with meaningful improvement on skilled care. Unfortunately we do not have a qualifying diagnosis to require an admission to the hospital at this time. Recommend they pursue long term placement as soon as able today is Tuesday and they are not likely be able to get her admitted to the long term today likely will have to wait until Tuesday recommend they stay with the patient and provide all cares and I will let her to do anything independently in the interim. Lab Data Radiology Impressions Shoulder X-Ray 11/16/24 16:28 IMPRESSION: No acute findings. All radiology interpretation(s) finalized by discharge Discharge Plan Discharge Patient Disposition: Home Clinical Impression: Pain in right shoulder, Physical deconditioning, Hypertension Condition: Stable Prescriptions: Changed amlodipine 5 mg tablet 5 mg PO DAILY Qty: 30 0RF Rx Instructions: 5 mg orally; No Action latanoprost [Xalatan] 0.005 % drops 1 drop ophthalmic (eye) QPM lidocaine-epinephrine (PF) 2 %-1:200,000 solution 2 ml SUBCUT ONCE Qty: 2 0RF fluoxetine 20 mg capsule 20 mg PO DAILY Qty: 30 11RF diazepam 2 mg tablet 1 mg PO .QHS PRN (Reason: anxiety) Qty: 30 2RF metoprolol succinate 200 mg tablet extended release 24 hr See Rx Instructions .ROUTE .COMPLEX Qty: 90 10RF Dose Instruction: TAKE 1 TABLET BY MOUTH EVERY DAY Rx Instructions: TAKE 1 TABLET BY MOUTH EVERY DAY potassium chloride 20 mEq tablet,ER particles/crystals See Rx Instructions .ROUTE .COMPLEX Qty: 60 5RF Dose Instruction: TAKE 2 TABLETS BY MOUTH EVERY DAY Rx Instructions: TAKE 2 TABLETS BY MOUTH EVERY DAY glimepiride 2 mg tablet See Rx Instructions .ROUTE .COMPLEX Qty: 30 5RF Dose Instruction: TAKE ONE TABLET BY MOUTH EVERY DAY Rx Instructions: TAKE ONE TABLET BY MOUTH EVERY DAY lisinopril-hydrochlorothiazide 20-12.5 mg tablet See Rx Instructions .ROUTE .COMPLEX Qty: 90 5RF Dose Instruction: TAKE 1 TABLET BY MOUTH EVERY DAY DIRECTED Rx Instructions: TAKE 1 TABLET BY MOUTH EVERY DAY DIRECTED brimonidine [Alphagan P] 0.1 % drops 1 drp ophthalmic (eye) BID Ocuvite Adult 50 Plus 250 mg (90 mg-160 mg) Capsule 1 cap PO BID Prevagen Chewables 1 tab PO DAILY loperamide [Imodium A-D] 2 mg tablet 2 mg PO . DIRECTED PRN (Reason: Diarrhea) ondansetron 4 mg tablet,disintegrating 4 mg PO Q6H PRN (Reason: nausea and vomiting) Qty: 14 0RF Discharge Orders: Discharge ED (Routine); Ordered 11/16/24 Ordered By: Ray Cronin Referrals: Eric Blanchard MD [Primary Care Provider, Family Practice] Discharge Diet: Usual diet Discharge Activity: Resume usual activity Patient Instructions: Opioid Safety, Pain Management Activity Restrictions/Additional Instructions: Thank you for choosing [facility] for your healthcare needs today. It is very important that you follow up as instructed or that you return to the Emergency Department should you have concerns or if your condition changes or worsens in any way. You were seen in the emergency room after a fall at home. X-rays of your right shoulder did not show any acute fractures. Remainder of your exam was unremarkable. You can use Tylenol and ibuprofen for discomfort follow-up with your primary care doctor as needed. It was noted while you are in the emergency room your blood pressure is elevated recommend you resume the amlodipine 5 mg daily. Print Language: Amharic Coding Level of Care Code ED Band Nailer for Kurtis Arambula
[2024-11-16 17:34] VITALS: BP 189/82; PULSE 57; RESP 16; O2SAT 93
== END 2024-11-16 17:33 | disposition home or self-care (01) ==
PROVIDERS: Emergency Provider Family Medicine; PCP Family Medicine
DX: M25.511 Pain in right shoulder (principal); R53.81 Other malaise; Z87.891 Personal history of nicotine dependence; Z85.3 Personal history of malignant neoplasm of breast; E11.9 Type 2 diabetes mellitus without complications; I11.0 Hypertensive heart disease with heart failure; I50.9 Heart failure, unspecified
CPT/HCPCS: 73030; 99283